=== PATIENT | male | born 1940 | race Caucasian/White ===

== ENCOUNTER → 2016-11-02 | Outpatient (CLI) | payer MEDICARE, BC ==
[~2016-11-02] MED LIST: /ESOM40CA; /MOXI40TA OR; ACTI300C; ALBU17IN2; CALAMINE; MULTIVIT OR; miralax
--- NOTE | 2016-11-02 16:32 | REP ---
MAXILLOFACIAL CT WITHOUT CONTRAST: HISTORY: Sinusitis. COMPARISON: 12/05/2010. The left frontal sinus is hypoplastic. Moderate mucosal thickening is present in the ethmoid and left frontal sinuses. Minimal mucosal thickening is present in the maxillary, sphenoid and right frontal sinuses. Mucosal thickening involves the osteomeatal units. The middle and inferior nasal turbinates are partially paradoxical. There is minimal deviation of the nasal septum to the right anteriorly and mild deviation to the left posteriorly. A spur is present arising from the left side of the nasal septum. The spur abuts the left middle nasal turbinate. The cribriform plate, medial hart of the orbits and optic canals are intact. The carotid canals form a segment of the posterolateral hart of the sphenoid sinus. The sphenoid sinus septum inserts into the left internal carotid canal wall. Minimal mucosal thickening is present in the right mastoid air cells. The left mastoid air cells are clear. IMPRESSION: Sinus mucosal thickening as described above. Signed by Venkat Beckford MD 11/02/2016 04:48 P
== END ==
LOC: M RAD 15:47
DX: J32.4 Chronic pansinusitis (principal)

== ENCOUNTER → 2017-04-10 | Outpatient (CLI) | payer MEDICARE, BC ==
[2017-04-10 14:46] LABS: ALBUMIN 3.6 GM/DL (3.2-5.2); ALBUMIN/GLOBULIN RATIO 1.13 (1.00-1.93); BILIRUBIN,DIRECT 0.3 MG/DL (0.0-0.2); CALCIUM LEVEL 9.6 MG/DL (8.8-10.2); CREATININE FOR GFR 1.5 MG/DL (0.70-1.30); GLOMERULAR FILTRATION RATE 48.4 (>42); POTASSIUM SERUM 4.8 MEQ/L (3.5-5.1); TOTAL PROTEIN 6.8 GM/DL (6.4-8.2)
== END ==
LOC: M SMT 10:15
PROVIDERS: ATTEND Physician Assistant Medical
DX: L29.9 Pruritus, unspecified (principal)

== ENCOUNTER → 2017-07-04 | Outpatient (CLI) | payer MEDICARE, BC ==
[2017-07-04 18:06] LABS: CALCIUM LEVEL 9.3 MG/DL (8.8-10.2); CREATININE FOR GFR 1.55 MG/DL (0.70-1.30); GLOMERULAR FILTRATION RATE 46.6 (>42); POTASSIUM SERUM 4.4 MEQ/L (3.5-5.1)
== END ==
LOC: M SMT 15:54
PROVIDERS: ATTEND Family Medicine
DX: N17.9 Acute kidney failure, unspecified (principal)

== ENCOUNTER → 2018-02-09 | Outpatient (CLI) | payer MEDICARE, BC ==
[2018-02-09 13:27] LABS: BASO # 0.1 10^3/uL (0.0-0.2); BASO % 1.6 % (0.0-1.0); EOS # 0.6 10^3/uL (0.0-0.50); EOS % 10.2 % (0.0-3.0); HEMATOCRIT 44.2 % (42.0-52.0); HEMOGLOBIN 15.1 g/dl (13.5-17.5); IMMATURE GRANULOCYTE % 0.2 % (0-3.0); LYMPH # 1.6 10^3/uL (1.5-4.5); LYMPH % 27.3 % (24.0-44.0); MEAN CORPUSCULAR HEMOGLOBIN 33.5 pg (27.0-33.0); MEAN CORPUSCULAR HGB CONC 34.2 g/dl (32.0-36.5); MONO # 0.6 10^3/uL (0.0-0.8); MONO % 11.1 % (0.0-5.0); NEUTROPHILS # 2.9 10^3/uL (1.8-7.7); NEUTROPHILS % 49.6 % (36.0-66.0); PLATELET COUNT, AUTOMATED 182 10^3/uL (150-450); RED BLOOD COUNT 4.51 10^6/uL (4.30-6.10); RED CELL DISTRIBUTION WIDTH 13.7 % (11.5-14.5); WHITE BLOOD COUNT 5.8 10^3/uL (4.0-10.0)
[2018-02-09 13:54] LABS: ERYTHROCYTE SEDIMENTATION RATE 3 mm/hr (0-20)
[2018-02-09 14:14] LABS: C REACTIVE PROTEIN QUANTITATIV < 0.30 MG/DL (0.00-0.30); FREE T4 0.97 NG/DL (0.76-1.46); THYROID STIMULATING HORMONE 0.548 uIU/ML (0.358-3.740)
[2018-02-09 22:45] LABS: ANION GAP 8 MEQ/L (8-16); BLOOD UREA NITROGEN 25 MG/DL (7-18); CALCIUM LEVEL 9.7 MG/DL (8.8-10.2); CARBON DIOXIDE LEVEL 27 MEQ/L (21-32); CHLORIDE LEVEL 109 MEQ/L (98-107); CREATININE FOR GFR 1.49 MG/DL (0.70-1.30); GLOMERULAR FILTRATION RATE 48.7 (>42); GLUCOSE, FASTING 82 MG/DL (70-100); POTASSIUM SERUM 4.4 MEQ/L (3.5-5.1); SODIUM LEVEL 144 MEQ/L (136-145)
== END ==
LOC: M SMT 11:17
DX: J32.0 Chronic maxillary sinusitis (principal); R09.82 Postnasal drip; R91.8 Other nonspecific abnormal finding of lung field; E03.9 Hypothyroidism, unspecified; R53.83 Other fatigue
CPT/HCPCS: 84443

== ENCOUNTER → 2018-02-10 | Outpatient (REF) | payer MEDICARE, BC | LOC: M LAB REF 10:37 | DX: J20.9 Acute bronchitis, unspecified (principal) | CPT/HCPCS: 87205 ==

== ENCOUNTER → 2018-02-15 | Outpatient (CLI) | payer MEDICARE, BC ==
[~2018-02-15] MED LIST changes: -/ESOM40CA; -/MOXI40TA OR; -ACTI300C; -ALBU17IN2; -CALAMINE; +ISOVUE-370 76% 100ML VIAL (Q9967) As Ordered; -MULTIVIT OR; -miralax
== END ==
LOC: M RAD 08:08
DX: J20.9 Acute bronchitis, unspecified (principal); J84.10 Pulmonary fibrosis, unspecified; K80.00 Calculus of gallbladder with acute cholecystitis without obstruction
CPT/HCPCS: Q9967

== ENCOUNTER → 2018-03-06 | Outpatient (CLI) | payer MEDICARE, BC ==
[2018-03-06 13:17] LABS: ANION GAP 6 MEQ/L (8-16); BLOOD UREA NITROGEN 26 MG/DL (7-18); CALCIUM LEVEL 9.5 MG/DL (8.8-10.2); CARBON DIOXIDE LEVEL 31 MEQ/L (21-32); CHLORIDE LEVEL 109 MEQ/L (98-107); GLOMERULAR FILTRATION RATE 52.3 (>42); GLUCOSE, FASTING 76 MG/DL (70-100); POTASSIUM SERUM 4.4 MEQ/L (3.5-5.1); SODIUM LEVEL 146 MEQ/L (136-145)
== END ==
LOC: M SMT 10:39
DX: Z01.818 Encounter for other preprocedural examination (principal)
CPT/HCPCS: 80048

== ENCOUNTER 2018-07-01 11:21 | Emergency (ER) | payer MEDICARE, BC ==
[2018-07-01] MEDS: ACETAMINOPH W/CODEINE #3 TAB UD PO (11:56)
== END 2018-07-01 12:59 | disposition home or self-care (01) ==
LOC: M ED 11:21
DX: M17.12 Unilateral primary osteoarthritis, left knee (principal); Z88.8 Allergy status to other drugs, medicaments and biological substances; Z88.0 Allergy status to penicillin
CPT/HCPCS: 73564

== ENCOUNTER → 2018-11-21 | Outpatient (CLI) | payer MEDICARE, BC ==
[~2018-11-21] MED LIST changes: +ACTI300C; +ALBU17IN2; +AVEL1TAB2 OR; +CALAMINE; -ISOVUE-370 76% 100ML VIAL (Q9967) As Ordered; +MULTIVIT OR; +NEXI1CAP3; +TYLETAB14 PO; +miralax
--- NOTE | 2018-11-21 13:18 | REP ---
REASON: Cough. COMPARISON: 02/09/2018. There is fibrotic change with basilar predominance status quo. No acute patchy parenchymal opacities or pleural effusions have developed. The cardiomediastinal silhouette is stable. The heart is not enlarged. There is no change in the osseous structures. IMPRESSION: Stable appearing chronic changes. Electronically Signed by Aly Bobo DO 11/21/2018 03:24 P
[2018-11-21 13:22] LABS: BASO # 0.1 10^3/uL (0.0-0.2); BASO % 1.2 % (0.0-1.0); EOS # 0.8 10^3/uL (0.0-0.50); EOS % 10.2 % (0.0-3.0); HEMATOCRIT 45.3 % (42.0-52.0); HEMOGLOBIN 15.5 g/dl (13.5-17.5); LYMPH % 26.2 % (24.0-44.0); MEAN CORPUSCULAR HEMOGLOBIN 34.1 pg (27.0-33.0); MEAN CORPUSCULAR HGB CONC 34.2 g/dl (32.0-36.5); MEAN CORPUSCULAR VOLUME 99.6 fl (80.0-96.0); MONO # 0.6 10^3/uL (0.0-0.8); MONO % 8.5 % (0.0-5.0); NEUTROPHILS % 53.5 % (36.0-66.0); PLATELET COUNT, AUTOMATED 178 10^3/uL (150-450); RED BLOOD COUNT 4.55 10^6/uL (4.30-6.10); WHITE BLOOD COUNT 7.5 10^3/uL (4.0-10.0)
[2018-11-21 14:08] LABS: ALBUMIN 3.6 GM/DL (3.2-5.2); ALT/SGPT 34 U/L (12-78); BILIRUBIN,TOTAL 1.1 MG/DL (0.2-1.0); BLOOD UREA NITROGEN 29 MG/DL (7-18); C REACTIVE PROTEIN QUANTITATIV < 0.30 MG/DL (0.00-0.30); CALCIUM LEVEL 10.3 MG/DL (8.8-10.2); CARBON DIOXIDE LEVEL 29 MEQ/L (21-32); CHLORIDE LEVEL 107 MEQ/L (98-107); CREATININE FOR GFR 1.42 MG/DL (0.70-1.30); FERRITIN 120 NG/ML (26-388); FREE T4 1.13 NG/DL (0.76-1.46); GLOMERULAR FILTRATION RATE 51.5 (>42); GLUCOSE, FASTING 94 MG/DL (70-100); IRON (FE) 154 UG/DL (65-175); PERCENT SATURATION 55.4 % (19.7-50.0); POTASSIUM SERUM 4.2 MEQ/L (3.5-5.1); RHEUMATOID FACTOR QUANT < 10.0 IU/ML (<15.0); SODIUM LEVEL 141 MEQ/L (136-145); TOTAL IRON BINDING CAPACITY 278 UG/DL (250-450); TOTAL PROTEIN 6.4 GM/DL (6.4-8.2)
[2018-11-21 14:18] LABS: ERYTHROCYTE SEDIMENTATION RATE 4 mm/hr (0-20)
[2018-11-22 17:19] LABS: PTH INTACT 16.1 PG/ML (18.5-88.0)
[2018-11-24 00:06] LABS: ANTINUCLEAR ANTIBODIES DIRECT Negative (Negative); BABESIOSIS LEVEL IGG <1:10 (Neg:<1:10); BABESIOSIS LEVEL IGM <1:10 (Neg:<1:10); CYCLIC CITRULLINATED PEPTIDE 47 units (0-19); E CHAFFEENSIS IgG TITER Negative (Neg:<1:64); E CHAFFEENSIS IgM TITER Negative (Neg:<1:20); HUMAN GRANULCYTIC EHRLIC IgG Negative (Neg:<1:64); HUMAN GRANULCYTIC EHRLIC IgM Negative (Neg:<1:20); Lyme Disease IgG Ab 18 kDa Ban Absent (.); Lyme Disease IgG Ab 23 kDa Ban Absent (.); Lyme Disease IgG Ab 28 kDa Ban Absent (.); Lyme Disease IgG Ab 30 kDa Ban Absent (.); Lyme Disease IgG Ab 39 kDa Ban Absent (.); Lyme Disease IgG Ab 41 kDa Ban Present (.); Lyme Disease IgG Ab 45 kDa Ban Present (.); Lyme Disease IgG Ab 58 kDa Ban Absent (.); Lyme Disease IgG Ab 66 kDa Ban Absent (.); Lyme Disease IgG Ab 93 kDa Ban Absent (.); Lyme Disease IgG West Blot Int Negative (.); Lyme Disease IgM Ab 23 kDa Ban Present (.); Lyme Disease IgM Ab 39 kDa Ban Absent (.); Lyme Disease IgM Ab 41 kDa Ban Absent (.); Lyme Disease IgM Ab Quantitati <0.80 index (0.00-0.79); Lyme Disease IgM West Blot Int Negative (.); UNITSIGA FOR GLIADIN IGA 8 units (0-19); UNITSIGG FOR GLIADIN IGG 2 units (0-19)
== END ==
LOC: M SMT 12:01
PROVIDERS: ATTEND Family Medicine
DX: R53.83 Other fatigue (principal); R05 Cough; E83.52 Hypercalcemia

== ENCOUNTER → 2018-11-26 | Outpatient (CLI) | payer MEDICARE, BC | LOC: M WUC 17:30 | PROVIDERS: ATTEND Family Medicine | DX: R53.83 Other fatigue (principal); E83.52 Hypercalcemia ==

== ENCOUNTER → 2018-12-17 | Outpatient (CLI) | payer MEDICARE, BC ==
[2018-12-20 14:51] LABS: Lyme Disease IgG Ab 18 kDa Ban Absent (.); Lyme Disease IgG Ab 23 kDa Ban Absent (.); Lyme Disease IgG Ab 28 kDa Ban Absent (.); Lyme Disease IgG Ab 30 kDa Ban Present (.); Lyme Disease IgG Ab 39 kDa Ban Absent (.); Lyme Disease IgG Ab 41 kDa Ban Present (.); Lyme Disease IgG Ab 45 kDa Ban Present (.); Lyme Disease IgG Ab 58 kDa Ban Absent (.); Lyme Disease IgG Ab 66 kDa Ban Absent (.); Lyme Disease IgG Ab 93 kDa Ban Absent (.); Lyme Disease IgG West Blot Int Negative (.); Lyme Disease IgG/IgM Antibodie 1.69 ISR (0.00-0.90); Lyme Disease IgM Ab 23 kDa Ban Absent (.); Lyme Disease IgM Ab 39 kDa Ban Absent (.); Lyme Disease IgM Ab 41 kDa Ban Absent (.); Lyme Disease IgM Ab Quantitati <0.80 index (0.00-0.79); Lyme Disease IgM West Blot Int Negative (.)
== END ==
LOC: M SMT 14:03
PROVIDERS: ATTEND Family Medicine
DX: A69.20 Lyme disease, unspecified (principal)

== ENCOUNTER → 2019-05-08 | Outpatient (CLI) | payer MEDICARE, BC ==
[2019-05-08 20:35] LABS: BASO # 0.1 10^3/uL (0.0-0.2); EOS # 0.2 10^3/uL (0.0-0.5); EOS % 3.4 % (0.0-3.0); HEMATOCRIT 41.1 % (42.0-52.0); HEMOGLOBIN 13.9 g/dl (13.5-17.5); LYMPH # 1.9 10^3/uL (1.5-5.0); LYMPH % 27.2 % (24.0-44.0); MEAN CORPUSCULAR HEMOGLOBIN 34.3 pg (27.0-33.0); MEAN CORPUSCULAR HGB CONC 33.8 g/dl (32.0-36.5); MEAN CORPUSCULAR VOLUME 101.5 fl (80.0-96.0); MONO # 0.8 10^3/uL (0.0-0.8); MONO % 11.5 % (0.0-5.0); NEUTROPHILS # 3.9 10^3/uL (1.5-8.5); NEUTROPHILS % 56.6 % (36.0-66.0); PLATELET COUNT, AUTOMATED 157 10^3/uL (150-450); RED BLOOD COUNT 4.05 10^6/uL (4.30-6.10)
[2019-05-08 20:41] LABS: ALBUMIN 3.5 GM/DL (3.2-5.2); BILIRUBIN,TOTAL 0.9 MG/DL (0.2-1.0); CALCIUM LEVEL 9.7 MG/DL (8.8-10.2); CREATININE FOR GFR 1.49 MG/DL (0.70-1.30); GLOMERULAR FILTRATION RATE 48.6 (>42); MAGNESIUM LEVEL 1.9 MG/DL (1.8-2.4); POTASSIUM SERUM 3.8 MEQ/L (3.5-5.1); TOTAL PROTEIN 6.3 GM/DL (6.4-8.2)
== END ==
LOC: M WUC 15:52
PROVIDERS: ATTEND Family Medicine
DX: R25.2 Cramp and spasm (principal)

== ENCOUNTER → 2020-03-20 | Outpatient (CLI) | payer MEDICARE, BC, SELFPAY ==
[~2020-03-20] MED LIST changes: +ANAS1TAB2 PO; +BACITAB PO; +CIAL5TAB PO; +CURC1POW2 MC; +CURC1POW2 PO; +DEXI60CA2 PO; +DHEA50TA2 PO; +FOLI1TAB11 PO; +IPRA3SP INH; +K2 P1TAB PO; +LATA0.0015 OP; +LYCO10CA3 PO; +MAGN1CAP PO; +MIRA3350 PO; +MONT10TA4 PO; +OMEG10002 PO; +RA M500C PO; +TEST200I14 IM; +THIA100TA PO; +THYR60TA PO; +VENTAER INH; +VITMTA PO; +XALA0.007 OU; +[UNRECOGNIZED DRUG - CODE] PO; +[UNRECOGNIZED DRUG - CODE] PO; +[UNRECOGNIZED DRUG - OTHER] PO; +[UNRECOGNIZED DRUG - REMARK] PO
== END ==
LOC: M LABSMTC 10:36
PROVIDERS: ATTEND Pediatrics
DX: Z11.59 Encounter for screening for other viral diseases (principal); Z20.828 Contact with and (suspected) exposure to other viral communicable diseases

== ENCOUNTER 2020-03-24 09:44 | Inpatient (IN) | payer MEDICARE, BC ==
[~2020-03-24] VITALS: Ht 177.8 cm; Wt 81.7 kg
[~2020-03-24 09:44] MED LIST changes: -ANAS1TAB2 PO; -BACITAB PO; -CIAL5TAB PO; -CURC1POW2 MC; -CURC1POW2 PO; -DEXI60CA2 PO; -DHEA50TA2 PO; -FOLI1TAB11 PO; -IPRA3SP INH; -K2 P1TAB PO; -LATA0.0015 OP; -LYCO10CA3 PO; -MAGN1CAP PO; -MIRA3350 PO; -MONT10TA4 PO; -OMEG10002 PO; -RA M500C PO; -TEST200I14 IM; -THIA100TA PO; -THYR60TA PO; -VENTAER INH; -VITMTA PO; -XALA0.007 OU; -[UNRECOGNIZED DRUG - CODE] PO; -[UNRECOGNIZED DRUG - CODE] PO; -[UNRECOGNIZED DRUG - OTHER] PO; -[UNRECOGNIZED DRUG - REMARK] PO
[2020-03-24 10:47] LABS: BASO # 0.1 10^3/uL (0.0-0.2); BASO % 1.2 % (0.0-1.0); EOS # 0.2 10^3/uL (0.0-0.5); EOS % 4.3 % (0.0-3.0); HEMATOCRIT 44.6 % (42.0-52.0); HEMOGLOBIN 15.4 g/dl (13.5-17.5); LYMPH % 18.2 % (24.0-44.0); MEAN CORPUSCULAR HEMOGLOBIN 33.4 pg (27.0-33.0); MEAN CORPUSCULAR HGB CONC 34.5 g/dl (32.0-36.5); MEAN CORPUSCULAR VOLUME 96.7 fl (80.0-96.0); MONO # 0.3 10^3/uL (0.0-0.8); MONO % 6.1 % (0.0-5.0); NEUTROPHILS # 3.9 10^3/uL (1.5-8.5); NEUTROPHILS % 68.6 % (36.0-66.0); RED BLOOD COUNT 4.61 10^6/uL (4.30-6.10); WHITE BLOOD COUNT 5.6 10^3/uL (4.0-10.0)
[2020-03-24] MEDS ORDERED: LATA0.0015 OP (10:47)
[2020-03-24] MEDS ORDERED: THYR60TA PO (10:47)
[2020-03-24] MEDS ORDERED: [UNRECOGNIZED DRUG - REMARK] PO (10:47)
[2020-03-24] MEDS ORDERED: IPRA3SP INH (10:47)
[2020-03-24] MEDS ORDERED: MONT10TA4 PO (10:47)
[2020-03-24] MEDS ORDERED: DEXI60CA2 PO (10:47)
--- NOTE | 2020-03-24 10:54 | REPVR ---
PROCEDURE INFORMATION: Exam: CT Head Without Contrast Exam date and time: 03/24/2020 10:31 AM Age: 79 years old Clinical indication: Walking, difficulty; Additional info: Staggering when walking TECHNIQUE: Imaging protocol: Computed tomography of the head without contrast. Radiation optimization: All CT scans at this facility use at least one of these dose optimization techniques: automated exposure control; mA and/or kV adjustment per patient size (includes targeted exams where dose is matched to clinical indication); or iterative reconstruction. COMPARISON: CT Head without contrast 03/03/2016 9:44 AM FINDINGS: Brain: There is no acute intracranial hemorrhage or mass effect. Mild diffuse volume loss is within the range of normal for patient age. There are small vessel ischemic changes within the periventricular and subcortical white matter, but the normal childress/white matter delineation is maintained. There is asymmetric prominence of the left cavernous sinus. Ventricles: Normal. No ventriculomegaly. Bones/joints: Unremarkable. No acute fracture. Sinuses: There are secretions within the left maxillary sinus. Mastoid air cells: There is fluid within mastoid air cells bilaterally. Soft tissues: Unremarkable. IMPRESSION: No acute hemorrhage or edema. Apparent asymmetric prominence of the left cavernous sinus. Contrast-enhanced MRI may be of benefit for further evaluation. Electronically signed by: Chel Garcia On 03/24/2020 10:54:06 AM
[2020-03-24] MEDS ORDERED: NS 1,000 ML IV ONE ×2 (11:00→15:00)
[2020-03-24 11:03] LABS: ALBUMIN 2.3 GM/DL (3.2-5.2); ALT/SGPT 103 U/L (12-78); BILIRUBIN,TOTAL 8.1 MG/DL (0.2-1.0); BLOOD UREA NITROGEN 43 MG/DL (7-18); CARBON DIOXIDE LEVEL 25 MEQ/L (21-32); CHLORIDE LEVEL 108 MEQ/L (98-107); CK-MB VALUE MASS < 1.0 NG/ML (<3.6); CPK CREATINE PHOSPHOKINASE 23 U/L (39-308); CREATININE FOR GFR 2.35 MG/DL (0.70-1.30); GLOMERULAR FILTRATION RATE 28.6 (>42); GLUCOSE, FASTING 99 MG/DL (70-100); LIPASE 113 U/L (73-393); MB/CK RELATIVE INDEX 4.35 (< OR =4); POTASSIUM SERUM 4.3 MEQ/L (3.5-5.1); SODIUM LEVEL 140 MEQ/L (136-145); TOTAL PROTEIN 5.4 GM/DL (6.4-8.2); TROPONIN I < 0.02 NG/ML (< 0.10)
[2020-03-24 11:27] LABS: PLATELET COUNT, AUTOMATED 44 10^3/uL (150-450)
--- NOTE | 2020-03-24 11:42 | REPVR ---
PROCEDURE INFORMATION: Exam: XR Complete Acute Abdomen Series Exam date and time: 03/24/2020 11:11 AM Age: 79 years old Clinical indication: Abdominal pain; Generalized; Additional info: Weakness/constipation TECHNIQUE: Imaging protocol: XR complete acute abdomen series, including 2 or more views of the abdomen and a single view chest. COMPARISON: CR CHEST 2 VIEWS 11/21/2018 12:17 PM FINDINGS: Lungs: Hyperinflation of the lungs and flattening of the hemidiaphragms are compatible with COPD. Pleural space: Normal. No pneumothorax. Heart/Mediastinum: Normal. No cardiomegaly. Gastrointestinal tract: Bowel gas pattern is nonspecific, without dilatation. Intraperitoneal space: Normal. No free air. Bones/joints: Normal. No acute fracture. Soft tissues: Normal. IMPRESSION: No acute abnormality. Electronically signed by: Chel Garcia On 03/24/2020 11:42:35 AM
[2020-03-24 12:38] LABS: BILIRUBIN, URINE MANUAL OBSCURED (NEGATIVE); GLUCOSE, URINE (UA) MANUAL NEGATIVE (NEGATIVE); KETONE, URINE MANUAL OBSCURED mg/dL (NEGATIVE); UROBILINOGEN, URINE MANUAL OBSCURED mg/dl (NORMAL)
[2020-03-24 12:47] LABS: SQUAMOUS EPITHELIAL CELL URINE MOD AMOUNT /hpf (SMALL AMT)
[2020-03-24 12:48] LABS: BACTERIA, URINE NONE SEEN; HYALINE CAST, URINE 0-1 /lpf (0-1)
[2020-03-24] MEDS ORDERED: ANAS1TAB2 PO (15:49)
[2020-03-24] MEDS ORDERED: K2 P1TAB PO (15:49)
[2020-03-24] MEDS ORDERED: CURC1POW2 PO (15:49)
[2020-03-24] MEDS ORDERED: LYCO10CA3 PO (15:49)
[2020-03-24] MEDS ORDERED: BACITAB PO (15:49)
[2020-03-24] MEDS ORDERED: VITMTA PO (15:49)
[2020-03-24] MEDS ORDERED: [UNRECOGNIZED DRUG - CODE] PO (15:49)
[2020-03-24] MEDS ORDERED: RA M500C PO (15:49)
[2020-03-24] MEDS ORDERED: OMEG10002 PO (15:49)
[2020-03-24] MEDS ORDERED: TEST200I14 IM (15:49)
[2020-03-24] MEDS ORDERED: XALA0.007 OU (15:49)
[2020-03-24] MEDS ORDERED: MIRA3350 PO (15:49)
[2020-03-24] MEDS ORDERED: CIAL5TAB PO (15:49)
[2020-03-24] MEDS ORDERED: MAGN1CAP PO (15:49)
[2020-03-24] MEDS ORDERED: VENTAER INH (15:49)
[2020-03-24] MEDS ORDERED: CURC1POW2 MC (15:49)
[2020-03-24] MEDS ORDERED: DHEA50TA2 PO (15:49)
[2020-03-24] MEDS ORDERED: [UNRECOGNIZED DRUG - OTHER] PO (15:51)
[2020-03-24] MEDS ORDERED: [UNRECOGNIZED DRUG - CODE] PO (15:51)
[2020-03-24] MEDS ORDERED: HEPARIN SOD (PORCINE) 5000UNITS/ML 1ML VIAL/SYRINGE SC SCH (16:00)
[2020-03-24] MEDS ORDERED: ALBUTEROL SULFATE 2.5 MG/0.5 ML INH NEB SOLN NEB PRN (16:00)
[2020-03-24 16:35] LABS: BILIRUBIN,DIRECT 6.3 MG/DL (0.0-0.2)
[2020-03-24] MEDS ORDERED: ISOVUE-370 76% 100ML VIAL As Ordered ONE (16:51)
[2020-03-24] MEDS ORDERED: GASTROGRAFIN SOLUTION 30ML PO SCH (17:00)
[2020-03-24 17:01] LABS: INR 1.25
[2020-03-24 17:02] LABS: PARTIAL THROMBOPLASTIN TIME 38.8 SECONDS (25.0-38.4)
[2020-03-24 17:13] LABS: HEPATITIS B SURFACE ANTIGEN NEGATIVE (NEGATIVE)
[2020-03-24] MEDS: GASTROGRAFIN SOLUTION 30ML PO SCH ×2 (17:24→17:43)
[2020-03-24 17:41] LABS: HEPATITIS B CORE ANTIBODY IGM NEGATIVE (NEGATIVE); HEPATITIS C VIRUS ABY INDEX 0.1 INDEX (<0.8)
[2020-03-24 17:45] LABS: HEPATITIS A ANTIBODY IGM NEGATIVE (NEGATIVE)
[2020-03-24 18:06] VITALS: BP 103/62
[2020-03-24] MEDS: PANTOPRAZOLE 40MG TAB (PROTONIX) PO SCH (18:20)
--- NOTE | 2020-03-24 20:22 | REPVR ---
PROCEDURE INFORMATION: Exam: CT Abdomen And Pelvis Without Contrast Exam date and time: 03/24/2020 7:27 PM Age: 79 years old Clinical indication: Constipation, abnormal liver function tests TECHNIQUE: Imaging protocol: Computed tomography of the abdomen and pelvis without contrast. Radiation optimization: All CT scans at this facility use at least one of these dose optimization techniques: automated exposure control; mA and/or kV adjustment per patient size (includes targeted exams where dose is matched to clinical indication); or iterative reconstruction. Other contrast: Oral, gastrographin ; COMPARISON: CR Abdomen,Flat Upright,PA CHEST 03/24/2020 10:55 AM FINDINGS: Lungs: There is a 5 mm solid pulmonary nodule in the right middle lobe and a 4 mm solid pulmonary nodule in the left lower lobe (image 6 of the axial series 204). There is bibasilar atelectasis. The lungs were not fully imaged. Pleural space: There is a trace right pleural effusion. The pleural spaces were not fully imaged. Heart: No cardiomegaly or pericardial effusion. Mitral annular and aortic valve calcifications are present. Liver: There is a slightly nodular contour of the liver, which may indicate cirrhosis. There is no CT evidence for fatty liver infiltration. No liver mass is identified. No hepatomegaly. The liver measures 12.9 cm in craniocaudal dimension at the level of the right midclavicular line. Gallbladder and bile ducts: There is a 10 mm calcified gallstone in the dependent portion of the body of the distended gallbladder. No gallbladder wall thickening, pericholecystic fluid, or inflammatory fat stranding is noted around the gallbladder. No dilation of the bile ducts is noted. No calcified stones are seen in the common bile duct. Pancreas: Unremarkable. No dilation of the main pancreatic duct is noted. There is no inflammatory fat stranding around the pancreas to suggest acute pancreatitis. Spleen: No splenic lesion is noted. The spleen is enlarged and measures 13.8 cm. Adrenals: Normal. No adrenal mass is noted. Kidneys and ureters: There is bilateral nephrolithiasis. No stones are noted in the ureters. There is no hydronephrosis or hydroureter. There is a 2.7 cm benign-appearing simple exophytic cyst arising from the lower pole of the left kidney for which further imaging follow-up is not recommended. Stomach and bowel: The stomach and small bowel are unremarkable. There is colonic diverticulosis without evidence for diverticulitis. There is no evidence for a bowel obstruction, colitis, pneumatosis intestinalis, intussusception, volvulus, or perforated viscus. Appendix: Normal. There is no evidence for appendicitis. Intraperitoneal space: No free air. No ascites. No asbcess. Retroperitoneal space: No fluid collection. No mass. Vasculature: There is no abdominal aortic aneurysm or intramural hematoma. Mild atherosclerotic calcifications are present. Lymph nodes: No enlarged lymph nodes. Bladder: There is a Sheridan catheter in appropriate position in the urinary bladder and gas in the bladder. The urinary bladder is decompressed, limiting its optimal evaluation. No stones are seen in the bladder. Reproductive: The prostate gland is enlarged and measures 4.4 cm x 6.1 cm x 4.9 cm and the volume of the prostate gland is increased and measures 68.8 mL. There is a calcification in the prostate gland. The seminal vesicles are unremarkable. Bones/joints: There is no fracture or dislocation. No suspicious osteolytic or osteoblastic lesion. Incidental note is made of intraosseous hemangiomas in the T10 and L5 vertebral bodies. There is mild osteoarthritis of both hip joints. There are bony protruberances in the lateral aspects of the femoral head neck junctions, which increase the anatomic risk for a CAM type femoroacetabular impingement syndrome in both hips. There are degenerative changes involving the lumbar spine. Soft tissues: There are postoperative changes from a bilateral inguinal hernia repair surgery. No recurrent hernia or soft tissue fluid collection is noted. IMPRESSION: 1. Nodular contour of the liver, which may indicate cirrhosis. 2. Splenomegaly. 3. Cholelithiasis without CT evidence for cholecystitis. 4. Nonobstructive bilateral nephrolithiasis. 5. Colonic diverticulosis without evidence for diverticulitis. 6. Enlarged prostate. 7. 5 mm solid pulmonary nodule in the right middle lobe and a 4 mm solid pulmonary nodule in the left lower lobe. For patients at low risk (minimal or absent history of smoking and of other known risk factors), no routine follow-up is indicated. For patients at high risk (history of smoking or of other known risk factors), consider optional CT at 12 months. (Hetal et al., Fleischner Society, 2017) 8. Trace right pleural effusion. COMMENTS: Consistent with the [place] [employer]'s Incidental Findings Committee white paper (J Am Servando Radiol 2018): Any incidental renal lesion less than 1 cm or classified as too small to characterize, or any incidental cystic renal lesion characterized as simple-appearing, is likely benign. No follow-up imaging is recommended for these lesions per consensus recommendations based on imaging criteria. Electronically signed by: Lele Kwon On 03/24/2020 20:22:04 PM
--- NOTE | 2020-03-24 20:32 | HPEPDOC ---
General Date of Admission Mar 24, 2020 at 15:54 Date of Service: Mar 24, 2020 Chief Complaint The patient is a 79-year-old male admitted with a reason for visit of Yo,Gait Instability. Source: Patient, Family History of Present Illness 79 year old male presented to the ED with 10 days history of fatigue, malaise, poor appetite and 1 week of constipation. He took some fleet enema yesterday for this and had a soft bowel movement. He also complained of disbalance and stagger ing gait for which he got a cane this morning for the first time ever. He also had 5 days of generalized abdominal pain about 4/10 dull aching which is now better after having a bowel movement yesterday. He denied any diarrhea or vomiting. In the ED he was found to have to have Jaudice with cholestatic pattern, Thrombocytopenia and Yo on CKD Home Medications Scheduled Anastrozole (Anastrozole) 1 Mg Tablet, 0.5 MG PO BID, (Reported) TAKES WITH TESTOSTERONE INJECTIONS (MON/) Curcumin (Curcumin) 10 Gm Powder, 1 CAP PO BID, (Reported) Dexlansoprazole (Dexilant) 60 Mg Cap.bp, 60 MG PO DAILY, (Reported) L.acidoph/L.bulg/B.bif/S.therm (Bacid Caplet) 1 Each Tablet, 1 TAB PO DAILY, (Reported) Latanoprost (Xalatan) 0.005% 2.5ML Drops, 1 DROP OU QHS, (Reported) Lycopene (Lycopene) 10 Mg Capsule, 10 MG PO DAILY, (Reported) Magnesium Oxide (Magnesium) 500 Mg Capsule, 500 MG PO QAM, (Reported) Magnesium Oxide (Magnesium) 500 Mg Capsule, 1,000 MG PO QHS, (Reported) Montelukast Sodium (Montelukast Sodium) 10 Mg Tablet, 10 MG PO QHS, (Reported) Multivitamins (Thera M Plus Tablet) 1 Each Tablet, 1 TAB PO DAILY, (Reported) Chauvin-3/Dha/Epa/Fish Oil (Fish Oil 1,000 mg Softgel) 1 Each Capsule, 4 CAP PO BID, (Reported) Polyethylene Glycol 3350 (Miralax) 119 Gm Powder, 1 DOSE PO DAILY, (Reported) TAKES ONE TABLESPOON Prasterone (Dhea)/Calcium Carb (Dhea 50 mg Tablet) 1 Each Tablet, 50 MG PO DAILY, (Reported) Tadalafil (Cialis) 5 Mg Tablet, 5 MG PO QHS, (Reported) Testosterone Cypionate (Testosterone Cypionate) 200 Mg/1 Ml Vial, 1 DOSE IM 2XW, (Reported) UNKNOWN DOSE (SUN/THURS) Thyroid ([place] Thyroid) 60 Mg Tablet, 60 MG PO QAM, (Reported) Vitamin D3/Vitamin K2 (Mk4) (K2 Plus D3 Tablet) 1 Each Tablet, 1 TAB PO QHS, (Reported) [Methylation Formula] , 2 TAB PO DAILY, (Reported) [Ta-65] , 1 CAP PO QHS, (Reported) Scheduled PRN Albuterol Sulfate (Ventolin Hfa) 18 Gm Hfa.aer.ad, 2 PUFF INH Q4H PRN for SOB/WH EEZING, (Reported) Calcium Carbonate (Antacid) 200 Mg Tab.chew, 500 MG PO for INDIGESTION, (Reported) Ipratropium Clayton (Ipratropium [place]) 30 Ml [place], 2 SPRAYS INH BID PRN for CONGESTION, (Reported) Allergies Coded Allergies: amoxicillin (Verified Adverse Reaction, Unknown, jaundice, SCLERA ORANGE, URINE ORANGE, 03/24/20) clavulanic acid (Verified Adverse Reaction, Unknown, jaundice, SCLERA ORANGE, URINE ORANGE, 03/24/20) Past Medical History Medical History CKD stage 3 Asthma ACID REFLUX ERECTILE DYSFUNCTION Hypogonadism BLADDER STONES/ Atonic bladder BPH s/p TURP LYME DISEASE SLEEP APNEA H/o Jaundice due to medications. Glaucoma Hypothyroid Surgical History TURP hernia repair Family History FATHER: RHEUMATOID ARTHRITIS MOTHER: , Breast cancer Social History * Smoker: Denies Alcohol: occationally Drugs: denies A-FIB/CHADSVASC A-FIB History Current/History of A-Fib/PAF?: No Review of Systems Constitutional: Reports: Malaise, Weakness, Fatigue; Denies: Chills, Fever, Weight Loss, Lethargy, Other Eyes: Denies: Pain, Vision change ENT: Denies: Head Aches, Ear Pain, Dysphagia Skin: Denies: Rash, Lesions, Breakdown Pulmonary: Denies: Dyspnea, Cough Cardiovascular: Reports: Edema (more i right foot); Denies: Chest Pain, Palpitations, Orthopnea, Paroxysmal Noc. Dyspnea, Lt Headedness Gastrointestinal: Reports: Abdominal Pain, Constipation; Denies: Nausea, Vomiting, Diarrhea Genitourinary: Reports: Frequency, Other Symptoms (dark color); Denies: Dysuria, Incontinence, Retention Neurological: Reports: Weakness Psych: Reports: Mood Normal; Denies: Depression, Memory Issues Other systems all 11 point review of systems are nagative except those mentioned in HPI Physical Examination General Exam: Positive: Alert, Cooperative, No Acute Distress Eye Exam: Positive: PERRLA, Conjunctiva & lids normal, EOMI, Sclera icteric ENT Exam: Positive: Atraumatic, Mucous membr. moist/pink, Pharynx Normal Neck Exam: Positive: Supple; Negative: JVD, thyromegaly Chest Exam: Positive: Clear to auscultation, Normal air movement Heart Exam: Positive: Rate Normal, Regular Rhythm, Normal S1, Normal S2; Negative: Murmurs, Rubs Telemetry: Positive: No significant arrhythmia Abdomen Exam: Positive: Normal bowel sounds, Soft; Negative: Tenderness, Hepatospenomegaly Extremity Exam: Positive: Edema (right foot), Normal pulses; Negative: Clubbing, Cyanosis Neuro Exam: Positive: Normal Speech, Normal Tone Psych Exam: Positive: Memory Intact, Oriented x 3 Vital Signs Vital Signs Date Time Temp Pulse Resp B/P (MAP) Pulse Ox O2 Delivery O2 Flow Rate FiO2 03/24/20 18:06 98.2 74 16 103/62 (76) 97 Room Air Laboratory Data Labs 24H Laboratory Tests 2 03/24/20 10:16: Immature Granulocyte % (Auto) 1.6, Neutrophils (%) (Auto) 68.6H, Lymphocytes (%) (Auto) 18.2L, Monocytes (%) (Auto) 6.1H, Eosinophils (%) (Auto) 4.3H, Basophils (%) (Auto) 1.2H, Neutrophils # (Auto) 3.9, Lymphocytes # (Auto) 1.0L, Monocytes # (Auto) 0.3, Eosinophils # (Auto) 0.2, Basophils # (Auto) 0.1, Nucleated Red Blood Cells % (auto) 0.0, Immature Platelet Fraction 6.7, Anion Gap 7L, Glomerular Filtration Rate 28.6L, Calcium Level 10.0, Total Bilirubin 8.1H, Direct Bilirubin 6.3H, Aspartate Amino Transf (AST/SGOT) 93H, Alanine Aminotransferase (ALT/SGPT) 103H, Alkaline Phosphatase 147H, Total Creatine Kinase 23L, Creatine Kinase MB < 1.0, Creatine Kinase MB Relative Index 4.35H, Troponin I < 0.02, Total Protein 5.4L, Albumin 2.3L, Albumin/Globulin Ratio 0.7, Lipase 113, Thyroid Stimulating Hormone (TSH) 1.950, Hepatitis A IgM Antibody NEGATIVE, Hepatitis B Surface Antigen NEGATIVE, Hepatitis B Core IgM Antibody NEGATIVE, Hepatitis C Antibody Index 0.1 03/24/20 11:32: Urine Color (SAMSON) ORANGEH, Urine Appearance (SAMSON) CLEAR, Urine pH (SAMSON) 5.0, Urine Specific [place] (SAMSON) 1.025, Urine Protein TRACEH, Bedside Urine Glucose (UA) NEGATIVE, Bedside Urine Ketones (LAB) OBSCUREDH, Bedside Urine Blood POSITIVEH, Bedside Urine Nitrite (LAB) OBSCUREDH, Bedside Urine Bilirubin (LAB) OBSCUREDH, Bedside Urine Urobilinogen (LAB) OBSCUREDH, Bedside Urine Leukocyte Esterase (L NEGATIVE, Urine Sediment Examination PERFORMED, Urine RBC 1-3, Urine WBC NONE SEEN, Urine Squamous Epithelial Cells MOD AMOUNTH, Urine Bacteria NONE SEEN, Urine Hyaline Casts 0-1 03/24/20 16:30: Prothrombin Time 16.0H, Prothromb Time International Ratio 1.25, Activated Partial Thromboplast Time 38.8H CBC/BMP Laboratory Tests 03/24/20 10:16 Microbiology Microbiology 03/24/20 Urine Culture, Received Pending Assessment/Plan 79 year old male presented to the ED with 10 days history of fatigue, malaise, poor appetite and 1 week of constipation. He took some fleet enema yesterday for this and had a soft bowel movement. He also complained of disbalance and staggering gait for which he got a cane this morning for the first time ever. He also had 5 days of generalized abdominal pain about 4/10 dull aching which is now better after having a bowel movement yesterday. He denied any diarrhea or vomiting. In the ED he was found to have to have Jaudice with cholestatic pattern, Thrombocytopenia and Yo on CKD Cholestatic Jaundice hepatitis panel is negative Has h/o drug induced jaundice as reported by akiko about 5 years ago. will get CT abd and pelvis with po contrast only consult Dr Danii LUTZ Thrombocytopenia probably due to liver issues will continue ot monitor No heparin. Asthma continue albuterol prn YO on CKD 3 IVF BALJEET May use own CPAP Hypogonadism/ ED on testosterone, anastrezole and DHEA held now. Tadalis for ED held now. Hypothyroid continue home meds Glaucoma continue eye drops. Plan / VTE VTE Prophylaxis Ordered?: Yes CHEMA CHRISTIANSON MD Mar 24, 2020 19:30
[2020-03-24] MEDS: LATANOPROST 0.005% OPHTH SOLN 2.5 ML OU SCH (20:49)
[2020-03-24] MEDS: BISACODYL 10 MG SUPP PR SCH (20:49)
[2020-03-24] MEDS: D5W/0.9% SODIUM CHLORIDE 1,000 ML IV SCH (20:50)
[2020-03-24] MEDS: MONTELUKAST 10 MG TAB PO SCH (20:50)
[2020-03-24] MEDS ORDERED: MIRALAX *UNIT DOSE* 17GM PACKET PO SCH (21:00)
[2020-03-24 22:00] VITALS: BP 99/65
[2020-03-25] MEDS: THYROID 30 MG TAB PO SCH (05:49)
[2020-03-25 06:00] VITALS: BP 96/60
[2020-03-25 07:01] LABS: HEMATOCRIT 40.5 % (42.0-52.0); HEMOGLOBIN 14.2 g/dl (13.5-17.5); MEAN CORPUSCULAR HEMOGLOBIN 33.6 pg (27.0-33.0); MEAN CORPUSCULAR HGB CONC 35.1 g/dl (32.0-36.5); MEAN CORPUSCULAR VOLUME 95.7 fl (80.0-96.0); RED BLOOD COUNT 4.23 10^6/uL (4.30-6.10)
[2020-03-25 07:04] LABS: PLATELET COUNT, AUTOMATED 46 10^3/uL (150-450)
[2020-03-25 07:36] LABS: ALBUMIN 1.9 GM/DL (3.2-5.2); BILIRUBIN,TOTAL 6.3 MG/DL (0.2-1.0); CALCIUM LEVEL 9.1 MG/DL (8.8-10.2); CREATININE FOR GFR 1.89 MG/DL (0.70-1.30); GLOMERULAR FILTRATION RATE 36.8 (>42); POTASSIUM SERUM 4.1 MEQ/L (3.5-5.1); TOTAL PROTEIN 4.2 GM/DL (6.4-8.2)
[2020-03-25] MEDS: D5W/0.9% SODIUM CHLORIDE 1,000 ML IV SCH (09:43)
[2020-03-25] MEDS: PANTOPRAZOLE 40MG TAB (PROTONIX) PO SCH (09:43)
[2020-03-25] MEDS: BISACODYL 10 MG SUPP PR SCH ×2 (09:43→20:32)
[2020-03-25] MEDS: LATANOPROST 0.005% OPHTH SOLN 2.5 ML OU SCH (20:31)
[2020-03-25] MEDS: MONTELUKAST 10 MG TAB PO SCH (20:31)
[2020-03-25 22:00] VITALS: BP 95/64
[2020-03-25] MEDS ORDERED: FOLIC ACID 1 MG TAB PO ONE (22:15)
[2020-03-25] MEDS ORDERED: THIAMINE 100 MG TAB PO ONE (22:15)
--- NOTE | 2020-03-25 23:05 | CR.PDOC ---
General Date of Consultation: Mar 25, 2020 Referring Provider: CHEMA CEJA MD Attending Physician: TAE KLINE MD Consultation Primary physician/ hospitalist: Dr. Ceja Reason for consult: Abnormal liver panel HPI: 79 year old male patient with BA, CKD stage III, Erectile dysfunction, BPH s/p TURP, hypothyroidism, on multiple medications including testosterone supplements, anastrozole, OTC nutrition supplements, and recently started on weight loss medications ( high-low, medication labels not available), and also took high dose Tylenol ( 10 tablets of 500mg tylenol over 3 days around 1 week ago), chronic social alcohol use, presented to ED with around 1 week symptoms of fatigue, malaise, poor appetite and 1 week of constipation. He also reported initially some abdominal discomfort related to constipation but after taking some fleet enema, he started moving bowels and has complete relief of pain. He denied any further abdominal pain when examined by me. He denies any other act leeroy symptoms except for some malaise and generalized weakness and dizziness. He denies any loss of consciousness, or altered mental status. Patient had CT abdomen done in ER- which showed possible liver cirrhosis with nodular liver. 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 Pertinent negative GI symptoms: Patient denies fever, sick contacts, recent travel, diarrhea, loss of appetite, early satiety or unintentional weight loss. No history of hematemesis, melena or hematochezia. Review of Systems: GI: as stated above CVS: No chest pain, No palpitations, No leg swelling. RS: No Shortness of breath, No Wheezing, no cough MANAGEMENT SERVICES TECHNICIAN: No dizziness, No motor weakness, No sensory problems Hematology: No bruising, No gum bleeding, Musculoskeletal: No joint pain, ambulating well. Skin: No rash : No hematuria, No burning sensation of the urine ENT: No ear discharge/ pain, No dysphagia. Eyes: No photophobia. Jaundice Home medications: reviewed. Antithrombotic agents - none Medical h/o: As above. Surgical h/o: None on abdomen. Social h/o: Alcohol social but on average week drinks 2-4 beers, smoking Denies , IVDA/ drugs Denies . Family h/o of GI cancers - None Prior Endoscopies: Had EGD and Colonoscopy few years ago outside [facility]. Normal as per patient. Prior GI evaluations: in 2008 in [facility] Exam: Vitals: reviewed General: Alert and oriented x 3, not in distress HEENT: NO pallor, Mild icterus. Normal oropharynx, NO cervical lymph nodes. Chest: symmetric with bilateral clear air entry, CVS: S1, S2 heard, normal, no murmurs . Abdomen: non-distended, no surgical scars, soft, non-tender, no palpable masses, normal bowel sounds heard. Rectal exam: Patient refused / Deferred at this time . Extremities: no pedal edema, pulses palpable. MANAGEMENT SERVICES TECHNICIAN: no focal motor or sensory deficits. Moves all extremities Skin: no rash. Labs: reviewed. Acute viral hepatitis negative.. Imaging: reviewed. Impression: -- Acute onset malaise, clinical jaundice, fatigue and generalized weakness, in patient with history of multiple OTC medications use, recent use of Tylenol and chronic use of anabolic steroid use DDxDrug induced liver injury vs liver cirrhosis from chronic disease. -- Acute thrombocytopenia likely from above. -- YO on CKDlikely from dehydration and multiple medications. Recommendations: - Patient educated about the test results, possible differential diagnoses and All questions answered. - Diet as tolerated. - Will stop all the home medications and all hepatotoxic supplements. - Close monitoring of the mental status, liver panel, PT/ INR, renal function. - Serum and urine toxicology assessment. - Will obtain peripheral smear for pathology review, Haptoglobin levels, and LDH, Autoimmune hepatitis panel, - Discussed with patient about the available treatment options including empiric therapy with N-Acetyl cysteine, its indications, risks, benefits and alternatives. Patient want to take the medication. - Will obtain repeat labs of liver panel and start on NAC 21 hour protocol for DILI. - Will also start on thiamine and folic acid for now. - Continue with low dose PPI for now. - Patient is educated about the guarded prognosis. If any worsening of mental status or worsening of INR >1.5, and / or worsening renal function, need to transfer to liver center. - If no improvement of liver panel with above conservative medications to consider liver biopsy. - Please update GI if any acute change in status. Plan of care discussed with patient and primary team. Patient verbalized underst anding and agreed with the plan. Vital Signs/I&O Vital Signs Date Time Temp Pulse Resp B/P (MAP) Pulse Ox O2 Delivery O2 Flow Rate FiO2 03/25/20 14:00 97.6 72 17 93 Room Air 03/25/20 06:00 96/60 (72) I&O- Last 24 Hours up to 6 AM 03/25/20 06:00 Intake Total 3280 ml Output Total 950 ml Balance 2330 ml Laboratory Data Labs 24H Laboratory Tests 2 03/25/20 06:34: Nucleated Red Blood Cells % (auto) 0.0, Anion Gap 4L, Glomerular Filtration Rate 36.8L, Calcium Level 9.1, Total Bilirubin 6.3H, Aspartate Amino Transf (AST/SGOT) 78H, Alanine Aminotransferase (ALT/SGPT) 97H, Alkaline Phosphatase 128H, Total Protein 4.2#L, Albumin 1.9L, Albumin/Globulin Ratio 0.8 03/25/20 09:40: Methicillin-Resist S.aureus DNA PCR NOT DETECTED CBC/BMP Laboratory Tests 03/25/20 06:34 Microbiology Microbiology 03/24/20 Urine Culture - Final, Complete Allergies Coded Allergies: amoxicillin (Verified Adverse Reaction, Unknown, jaundice, SCLERA ORANGE, URINE ORANGE, 03/24/20) clavulanic acid (Verified Adverse Reaction, Unknown, jaundice, SCLERA ORANGE, URINE ORANGE, 03/24/20) Home Medications Scheduled Anastrozole (Anastrozole) 1 Mg Tablet, 0.5 MG PO BID, (Reported) TAKES WITH TESTOSTERONE INJECTIONS (SUN/THURS) Curcumin (Curcumin) 10 Gm Powder, 1 CAP PO BID, (Reported) Dexlansoprazole (Dexilant) 60 Mg Cap.bp, 60 MG PO DAILY, (Reported) L.acidoph/L.bulg/B.bif/S.therm (Bacid Caplet) 1 Each Tablet, 1 TAB PO DAILY, (Reported) Latanoprost (Xalatan) 0.005% 2.5ML Drops, 1 DROP OU QHS, (Reported) Lycopene (Lycopene) 10 Mg Capsule, 10 MG PO DAILY, (Reported) Magnesium Oxide (Magnesium) 500 Mg Capsule, 500 MG PO QAM, (Reported) Magnesium Oxide (Magnesium) 500 Mg Capsule, 1,000 MG PO QHS, (Reported) Montelukast Sodium (Montelukast Sodium) 10 Mg Tablet, 10 MG PO QHS, (Reported) Multivitamins (Thera M Plus Tablet) 1 Each Tablet, 1 TAB PO DAILY, (Reported) [place]-3/Dha/Epa/Fish Oil (Fish Oil 1,000 mg Softgel) 1 Each Capsule, 4 CAP PO BID, (Reported) Polyethylene Glycol 3350 (Miralax) 119 Gm Powder, 1 DOSE PO DAILY, (Reported) TAKES ONE TABLESPOON Prasterone (Dhea)/Calcium Carb (Dhea 50 mg Tablet) 1 Each Tablet, 50 MG PO DAILY, (Reported) Tadalafil (Cialis) 5 Mg Tablet, 5 MG PO QHS, (Reported) Testosterone Cypionate (Testosterone Cypionate) 200 Mg/1 Ml Vial, 1 DOSE IM 2XW, (Reported) UNKNOWN DOSE (SUN/THURS) Thyroid (Alma Thyroid) 60 Mg Tablet, 60 MG PO QAM, (Reported) Vitamin D3/Vitamin K2 (Mk4) (K2 Plus D3 Tablet) 1 Each Tablet, 1 TAB PO QHS, (Reported) [Methylation Formula] , 2 TAB PO DAILY, (Reported) [Ta-65] , 1 CAP PO QHS, (Reported) Scheduled PRN Albuterol Sulfate (Ventolin Hfa) 18 Gm Hfa.aer.ad, 2 PUFF INH Q4H PRN for SOB/WHEEZING, (Reported) Calcium Carbonate (Antacid) 200 Mg Tab.chew, 500 MG PO for INDIGESTION, (Reported) Ipratropium [place] (Ipratropium R[place]) 30 Ml [place], 2 SPRAYS INH BID PRN for CONGESTION, (Reported) TAE KLINE MD Mar 25, 2020 23:05
[2020-03-25 23:38] VITALS: BP 122/64
[2020-03-26 00:53] VITALS: BP 120/78
[2020-03-26] MEDS ORDERED: HEPARIN DRIP 25,000 UNITS in IV 1 EA IV SCH ×4 (02:39)
[2020-03-26] MEDS ORDERED: HEPARIN SOD (PORCINE) 5000UNITS/ML 1ML VIAL/SYRINGE IV ONE (02:45)
[2020-03-26] MEDS ORDERED: HEPARIN SOD (PORCINE) 5000UNITS/ML 1ML VIAL/SYRINGE IV PRN (02:45)
[2020-03-26 04:00] VITALS: BP 135/80
[2020-03-26 05:48] LABS: VENOUS BASE EXCESS -3.8 (-2.0-2.0); VENOUS HCO3 19.5 MEQ/L (23.0-27.0); VENOUS O2 SATURATION 94.7 % (60.0-80.0); VENOUS PARTIAL PRESSURE CO2 30.9 mmHg (38.0-50.0); VENOUS PARTIAL PRESSURE O2 73.6 mmHg (30.0-50.0); VENOUS PH 7.417 UNITS (7.330-7.430); VENOUS SITE NOT GIVEN; VENOUS STANDARD HCO3 21.3 MEQ/L; VENOUS TOTAL CO2 20.4 MEQ/L (24.0-28.0)
[2020-03-26 05:54] LABS: HEMATOCRIT 43.6 % (42.0-52.0); HEMOGLOBIN 15.3 g/dl (13.5-17.5); MEAN CORPUSCULAR HEMOGLOBIN 33.1 pg (27.0-33.0); MEAN CORPUSCULAR HGB CONC 35.1 g/dl (32.0-36.5); MEAN CORPUSCULAR VOLUME 94.4 fl (80.0-96.0); RED BLOOD COUNT 4.62 10^6/uL (4.30-6.10); WHITE BLOOD COUNT 8.4 10^3/uL (4.0-10.0)
[2020-03-26 05:55] LABS: PLATELET COUNT, AUTOMATED 56 10^3/uL (150-450)
[2020-03-26] MEDS ORDERED: D5W IV ONE ×3 (06:00→11:00)
[2020-03-26] MEDS ORDERED: ACETYLCYSTEINE IV ONE ×3 (06:00→11:00)
[2020-03-26 06:02] LABS: INR 1.08; PROTHROMBIN TIME 14.2 SECONDS (11.8-14.0)
[2020-03-26 06:03] LABS: PARTIAL THROMBOPLASTIN TIME 30.8 SECONDS (25.0-38.4)
[2020-03-26] MEDS: THYROID 30 MG TAB PO SCH (06:08)
[2020-03-26 06:14] LABS: BILIRUBIN,DIRECT 3.1 MG/DL (0.0-0.2); BILIRUBIN,TOTAL 4.2 MG/DL (0.2-1.0); CALCIUM LEVEL 9.3 MG/DL (8.8-10.2); CREATININE FOR GFR 1.68 MG/DL (0.70-1.30); GLOMERULAR FILTRATION RATE 42.2 (>42); TOTAL PROTEIN 4.6 GM/DL (6.4-8.2)
[2020-03-26 06:18] LABS: ACETAMINOPHEN LEVEL 2.5 UG/ML (10.0-30.0); SALICYLATE LEVEL < 1.7 MG/DL (5.0-30.0)
[2020-03-26] MEDS ORDERED: oxyCODONE 5MG TAB PO ONE (07:45)
[2020-03-26 08:00] VITALS: BP 143/85
[2020-03-26] MEDS: FOLIC ACID 1 MG TAB PO SCH (08:17)
[2020-03-26] MEDS: THIAMINE 100 MG TAB PO SCH (08:17)
[2020-03-26] MEDS: PANTOPRAZOLE 40MG TAB (PROTONIX) PO SCH (08:17)
[2020-03-26] MEDS: BISACODYL 10 MG SUPP PR SCH ×2 (08:21→20:51)
[2020-03-26 12:00] VITALS: BP 152/77
--- NOTE | 2020-03-26 12:08 | IPNPDOC ---
Text Note Date of Service The patient was seen on 03/25/20. NOTE Subjective: Remains the same as yesterday. No overnight events. Very weak and tired. No fever or chills. BP low normal. Physical Exam: Vitals as below. General Exam: Positive: Alert, Cooperative, No Acute Distress Eye Exam: Positive: PERRLA, Conjunctiva & lids normal, EOMI, Sclera icteric ENT Exam: Positive: Atraumatic, Mucous membr. moist/pink, Pharynx Normal Neck Exam: Positive: Supple; Negative: JVD, thyromegaly Chest Exam: Positive: Clear to auscultation, Normal air movement Heart Exam: Positive: Rate Normal, Regular Rhythm, Normal S1, Normal S2; Negative: Murmurs, Rubs Telemetry: Positive: No significant arrhythmia Abdomen Exam: Positive: Normal bowel sounds, Soft; Negative: Tenderness, Hepatospenomegaly Extremity Exam: Positive: Edema (right foot), Normal pulses; Negative: Clubbing, Cyanosis Neuro Exam: Positive: Normal Speech, Normal Tone Psych Exam: Positive: Memory Intact, Oriented x 3 Labs and Radiology: reviewed 79 year old male presented to the ED with 10 days history of fatigue, malaise, poor appetite and 1 week of constipation. He took some fleet enema yesterday for this and had a soft bowel movement. He also complained of disbalance and staggering gait for which he got a cane this morning for the first time ever. He also had 5 days of generalized abdominal pain about 4/10 dull aching which is now better after having a bowel movement yesterday. He denied any diarrhea or vomiting. In the ED he was found to have to have Jaudice with cholestatic pattern, Thrombocytopenia and Yo on CKD Cholestatic Jaundice hepatitis panel is negative CT abdomen shows cirrhosis of liver, no ascites. Has h/o drug induced jaundice as reported by patient about 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 Hypotension NINO low normal with a good MAP probably due to cirrhosis of liver Asthma continue albuterol prn YO on CKD 3 IVF BALJEET May use own CPAP Hypogonadism/ ED on testosterone, anastrezole and DHEA held now. Tadalis for ED held now. Hypothyroid continue home meds Glaucoma continue eye drops. VS,Fishbone, I+O VS, Fishbone, I+O Laboratory Tests 03/24/20 10:16 03/25/20 06:34 Vital Signs Date Time Temp Pulse Resp B/P (MAP) Pulse Ox O2 Delivery O2 Flow Rate FiO2 03/24/20 22:00 97.2 76 18 99/65 (76) 94 Room Air I&O- Last 24 Hours up to 6 AM 03/25/20 06:00 Intake Total 3280 ml Output Total 950 ml Balance 2330 ml CHEMA CHRISTIANSON MD Mar 25, 2020 07:50
--- NOTE | 2020-03-26 12:19 | IPNPDOC ---
Text Note Date of Service The patient was seen on 03/26/20. NOTE Subjective: Feels better this am. Able to walk better, appetite improveving. He was taking OTC supplements and weight loss medication which he bought online. He has been on steroids for several years. Physical Exam: Vitals as below. General Exam: Positive: Alert, Cooperative, No Acute Distress Eye Exam: Positive: PERRLA, Conjunctiva & lids normal, EOMI, Sclera icteric ENT Exam: Positive: Atraumatic, Mucous membr. moist/pink, Pharynx Normal Neck Exam: Positive: Supple; Negative: JVD, thyromegaly Chest Exam: Positive: Clear to auscultation, Normal air movement Heart Exam: Positive: Rate Normal, Regular Rhythm, Normal S1, Normal S2; Negative: Murmurs, Rubs Telemetry: Positive: No significant arrhythmia Abdomen Exam: Positive: Normal bowel sounds, Soft; Negative: Tenderness, Hepatospenomegaly Extremity Exam: Positive: Edema (right foot), Normal pulses; Negative: Clubbing, Cyanosis Neuro Exam: Positive: Normal Speech, Normal Tone Psych Exam: Positive: Memory Intact, Oriented x 3 Labs and Radiology: reviewed 79 year old male presented to the ED with 10 days history of fatigue, malaise, poor appetite and 1 week of constipation. He took some fleet enema yesterday for this and had a soft bowel movement. He also complained of disbalance and stag gering gait for which he got a cane this morning for the first time ever. He also had 5 days of generalized abdominal pain about 4/10 dull aching which is now better after having a bowel movement yesterday. He denied any diarrhea or vomiting. In the ED he was found to have to have Jaundice with cholestatic pattern, Thrombocytopenia and [place] on CKD Cholestatic Jaundice with cirrhosis of liver. Drug induced jaundice due to use of OTC drugs, tylenol, weight loss med. 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 Hepatitis panel is negative Started on N- acetyl cysteine. peripheral smear for pathology review, Haptoglobin levels, Autoimmune hepatitis panel ordered. LDH normal. Liver doppler. 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 Hypotension on admission now improved. probably due to cirrhosis of liver/ with dehydration Asthma continue albuterol prn SIXTO on CKD 3 improving due to poor oral intake, dehydration. BALJEET May use own CPAP Hypogonadism/ ED on testosterone, anastrezole and DHEA held now. Tadalis for ED held now. Hypothyroid continue home meds Glaucoma continue eye drops. VS,Fishbone, I+O VS, Fishbone, I+O Laboratory Tests 03/26/20 05:37 Vital Signs Date Time Temp Pulse Resp B/P (MAP) Pulse Ox O2 Delivery O2 Flow Rate FiO2 03/26/20 08:00 98.3 91 20 143/85 (104) 96 Room Air I&O- Last 24 Hours up to 6 AM 03/26/20 06:00 Intake Total 1890 ml Output Total 850 ml Balance 1040 ml CHEMA CHRISTIANSON MD Mar 26, 2020 12:19
[2020-03-26 16:00] VITALS: BP 134/79
[2020-03-26] MEDS ORDERED: FLUBLOK(EGG FREE)(QUAD)INFLUENZA VACC 0.5ML SYRINGE 18YRS & OLDER IM ONE (17:00)
[2020-03-26 20:00] VITALS: BP 140/83
[2020-03-26] MEDS: MONTELUKAST 10 MG TAB PO SCH (20:51)
[2020-03-26] MEDS: LATANOPROST 0.005% OPHTH SOLN 2.5 ML OU SCH (20:51)
[2020-03-27] VITALS (7 sets, daily range): BP systolic 140–164; BP diastolic 77–88
[2020-03-27] MEDS ORDERED: oxyCODONE 5MG TAB PO ONE (04:30)
[2020-03-27] MEDS: THYROID 30 MG TAB PO SCH (05:06)
[2020-03-27 06:11] LABS: HEMATOCRIT 40.8 % (42.0-52.0); HEMOGLOBIN 14.5 g/dl (13.5-17.5); MEAN CORPUSCULAR HEMOGLOBIN 33.1 pg (27.0-33.0); MEAN CORPUSCULAR HGB CONC 35.5 g/dl (32.0-36.5); MEAN CORPUSCULAR VOLUME 93.2 fl (80.0-96.0); RED BLOOD COUNT 4.38 10^6/uL (4.30-6.10); WHITE BLOOD COUNT 7.5 10^3/uL (4.0-10.0)
[2020-03-27 06:12] LABS: PLATELET COUNT, AUTOMATED 68 10^3/uL (150-450)
[2020-03-27 06:43] LABS: BILIRUBIN,TOTAL 3.2 MG/DL (0.2-1.0); CREATININE FOR GFR 1.56 MG/DL (0.70-1.30); GLOMERULAR FILTRATION RATE 45.9 (>42); POTASSIUM SERUM 3.6 MEQ/L (3.5-5.1); TOTAL PROTEIN 4.7 GM/DL (6.4-8.2)
[2020-03-27] MEDS: THIAMINE 100 MG TAB PO SCH (09:00)
[2020-03-27] MEDS: BISACODYL 10 MG SUPP PR SCH ×3 (09:00→21:00)
[2020-03-27] MEDS: PANTOPRAZOLE 40MG TAB (PROTONIX) PO SCH (09:01)
[2020-03-27] MEDS: FOLIC ACID 1 MG TAB PO SCH (09:01)
[2020-03-27] MEDS ORDERED: SLF 3 ML SYR IV PRN (11:15)
[2020-03-27] MEDS ORDERED: THIA100TA PO (11:31)
[2020-03-27] MEDS ORDERED: FOLI1TAB11 PO (11:31)
[2020-03-27] MEDS ORDERED: IBUPROFEN 800 MG TAB PO ONE (13:00)
[2020-03-27] MEDS ORDERED: MAGNESIUM CITRATE 300 ML BTL PO ONE (13:00)
[2020-03-27] MEDS: SLF 3 ML SYR IV SCH ×2 (14:00→22:00)
[2020-03-27] MEDS ORDERED: PROHANCE 279.3MG/ML 5ML VIAL As Ordered ONE ×2 (16:46→16:47)
[2020-03-27 17:07] LABS: ANTI-MITOCHONDRIAL ANTIBODY <20.0 Units (0.0-20.0); ANTI-SMOOTH MUSCLE ANTIBODY 7 Units (0-19); ANTINUCLEAR ANTIBODIES DIRECT Negative (Negative); HAPTOGLOBIN < 10 mg/dL (34-355); LIVER-KIDNEY MICROSOMAL ABY <20.1 Units (0.0-20.0)
--- NOTE | 2020-03-27 17:29 | REPVR ---
PROCEDURE INFORMATION: Exam: MR Head Without Contrast Exam date and time: 03/27/2020 4:38 PM Age: 79 years old Clinical indication: Condition or disease; Altered mental status/memory loss; Confusion or disorientation; Patient HX: Weakness, ataxia, confusion, HX left cavernous sinus TECHNIQUE: Imaging protocol: MR of the head without contrast. COMPARISON: CT Head without contrast 03/24/2020 10:27 AM FINDINGS: Brain: There is no restricted diffusion to suggest acute infarction.Increased signal intensity of the deep and subcortical white matter on the FLAIR and T2 weighted sequences is most consistent with microangiopathy. There is no acute intracranial hemorrhage or mass. No prior microhemorrhages. Ventricles: The ventricles appear mildly enlarged, but not out of proportion to the degree of parenchymal volume loss. Bones/joints: Unremarkable. Sinuses: There is fluid and mucosal disease in the left maxillary antrum and right sphenoid air cell with mucoperiosteal thickening in the paranasal sinuses. The asymmetry seen in the left cavernous sinus on the CT is not confirmed on the MRI the appearance was likely in part due to asymmetric expansion of the left sphenoid air cell. Mastoid air cells: There is fluid in the mastoid air cells bilaterally. Orbits: The orbits are unremarkable. Soft tissues: Unremarkable. IMPRESSION: No acute cerebral infarction or intracranial hemorrhage. No obvious abnormality is seen in the left cavernous sinus however no coronal or gadolinium-enhanced images were performed. Electronically signed by: Nadeen Mancilla On 03/27/2020 17:28:56 PM
--- NOTE | 2020-03-27 17:37 | REPVR ---
PROCEDURE INFORMATION: Exam: MR Angiogram Head Without Contrast, Arteries Exam date and time: 03/27/2020 4:38 PM Age: 79 years old Clinical indication: Condition or disease; Cognitive deficit; Altered mental status; Patient HX: Weakness, ataxia, confusion, HX left cavernous sinus TECHNIQUE: Imaging protocol: MR angiogram head without contrast. Exam focused on the arteries. 3D rendering (Not supervised by radiologist): MIP and/or 3D reconstructed images were created by the technologist. COMPARISON: CT Head without contrast 03/24/2020 10:27 AM FINDINGS: ANTERIOR CIRCULATION: Right internal carotid artery: Intracranial segment is patent with no significant stenosis. No aneurysm. Right middle cerebral artery: There appears to be diminishment in size of the distal right M1 segment however the proximal right M2 branches appear patent. Right anterior cerebral artery: No occlusion or significant stenosis. No aneurysm. Left internal carotid artery: Intracranial segment is patent with no significant stenosis. No aneurysm. Left middle cerebral artery: No occlusion or significant stenosis. No aneurysm. Left anterior cerebral artery: No occlusion or significant stenosis. No aneurysm. POSTERIOR CIRCULATION: Right vertebral artery: No occlusion or significant stenosis. No aneurysm. Left vertebral artery: No occlusion or significant stenosis. No aneurysm. Basilar artery: No occlusion or significant stenosis. No aneurysm. Right posterior cerebral artery: origin of the right posterior cerebral artery from the anterior circulation. Left posterior cerebral artery: No occlusion or significant stenosis. No aneurysm. IMPRESSION: No acute arterial occlusion. Electronically signed by: Nadeen Mancilla On 03/27/2020 17:37:09 PM
--- NOTE | 2020-03-27 17:42 | REPVR ---
PROCEDURE INFORMATION: Exam: MR Angiogram Head With Contrast, Venogram Exam date and time: 03/27/2020 4:20 PM Age: 79 years old Clinical indication: Patient HX: Weakness, ataxia, confusion, HX left cavernous sinus TECHNIQUE: Imaging protocol: MR angiogram of the head with intravenous contrast. Exam focused on the veins. 3D rendering (Not supervised by radiologist): MIP and/or 3D reconstructed images were created by the technologist. Contrast material: PROHANCE; Contrast volume: 8 ml; Contrast route: INTRAVENOUS (IV); COMPARISON: CT Head without contrast 03/24/2020 10:27 AM FINDINGS: Superior sagittal sinus: The superior sagittal sinus preferentially drains into the right transverse sinus. Straight sinus: The straight sinus drains primarily into the left transverse sinus. Internal cerebral and cortical veins: Unremarkable as visualized. Transverse sinuses: Patent. Sigmoid sinuses: Patent. Internal jugular veins: Visualized segment patent. IMPRESSION: No evidence of thrombosis of the venous sinuses or visualized portions of the cerebral cortical veins. Electronically signed by: Nadeen Mancilla On 03/27/2020 17:42:42 PM
[2020-03-27] MEDS: LATANOPROST 0.005% OPHTH SOLN 2.5 ML OU SCH (21:14)
[2020-03-27] MEDS: MONTELUKAST 10 MG TAB PO SCH (21:14)
[2020-03-28] VITALS: BP 123/79
[2020-03-28 04:00] VITALS: BP 150/82
[2020-03-28 05:30] LABS: HEMATOCRIT 41.9 % (42.0-52.0); HEMOGLOBIN 14.5 g/dl (13.5-17.5); MEAN CORPUSCULAR HGB CONC 34.6 g/dl (32.0-36.5); MEAN CORPUSCULAR VOLUME 95.2 fl (80.0-96.0); PLATELET COUNT, AUTOMATED 90 10^3/uL (150-450); WHITE BLOOD COUNT 7.6 10^3/uL (4.0-10.0)
[2020-03-28 05:52] LABS: ALBUMIN 2.2 GM/DL (3.2-5.2); BILIRUBIN,TOTAL 2.6 MG/DL (0.2-1.0); CALCIUM LEVEL 9.6 MG/DL (8.8-10.2); CREATININE FOR GFR 1.49 MG/DL (0.70-1.30); GLOMERULAR FILTRATION RATE 48.4 (>42); POTASSIUM SERUM 4.4 MEQ/L (3.5-5.1)
[2020-03-28] MEDS: THYROID 30 MG TAB PO SCH (06:26)
[2020-03-28] MEDS: SLF 3 ML SYR IV SCH (06:26)
[2020-03-28] MEDS: BISACODYL 10 MG SUPP PR SCH (07:57)
[2020-03-28 08:00] VITALS: BP 136/80
[2020-03-28 09:04] VITALS: BP 111/81
[2020-03-28] MEDS: PANTOPRAZOLE 40MG TAB (PROTONIX) PO SCH (09:21)
[2020-03-28] MEDS: FOLIC ACID 1 MG TAB PO SCH (09:21)
[2020-03-28] MEDS: THIAMINE 100 MG TAB PO SCH (09:21)
--- NOTE | 2020-03-28 09:45 | IPNPDOC ---
Text Note Date of Service The patient was seen on 03/27/20. NOTE Subjective: He has been having headache all night got a oxycodone early this am then slept for a whie however when he woke up he still had the severe headache and seemed a little confused too. He also complains of constipation. Akira has not had a good bowel movement in 1 week. Given 1 dose of of ibuprofen with improvement of headache . however in view of his being on steroids he is at high risk for venous thrombosis. Also his CT head on admission showed asymmetrical appearance of the left cavernous sinus will get an MRV to rule out cavernous sinus thrombosis. Physical Exam: Vitals as below. General Exam: Positive: Alert, Cooperative, No Acute Distress Eye Exam: Positive: PERRLA, Conjunctiva & lids normal, EOMI, Sclera icteric ENT Exam: Positive: Atraumatic, Mucous membr. moist/pink, Pharynx Normal Neck Exam: Positive: Supple; Negative: JVD, thyromegaly Chest Exam: Positive: Clear to auscultation, Normal air movement Heart Exam: Positive: Rate Normal, Regular Rhythm, Normal S1, Normal S2; Negative: Murmurs, Rubs Telemetry: Positive: No significant arrhythmia Abdomen Exam: Positive: Normal bowel sounds, Soft; Negative: Tenderness, Hepatosplenomegaly Extremity Exam: Positive: Edema (right foot), Normal pulses; Negative: Clubbing, Cyanosis Neuro Exam: Positive: Normal Speech, Normal Tone Labs and Radiology: reviewed 79 year old male presented to the ED with 10 days history of fatigue, malaise, poor appetite and 1 week of constipation. He took some fleet enema yesterday for this and had a soft bowel movement. He also complained of disbalance and staggering gait for which he got a cane this morning for the first time ever. He also had 5 days of generalized abdominal pain about 4/10 dull aching which is now better after having a bowel movement yesterday. He denied any diarrhea or vomiting. In the ED he was found to have to have Jaundice with cholestatic pattern, Thrombocytopenia and Yo on CKD Headache MRV to rule out cavernous sinuous thrombosis. MRI and MRA for any other abnormalities. ibuprofen 1 dose Cholestatic Jaundice with cirrhosis of liver. Drug induced jaundice due to use of OTC drugs, tylenol, weight loss med. Cirrhosis of liver could be due to [facility] use of Cialis / testosterone Hepatitis panel is negative received N- acetyl cysteine. peripheral smear for pathology review, Haptoglobin levels, Autoimmune hepatitis panel ordered. LDH normal. But haptoglobin is very low. Liver doppler still pending. 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 improving Hypotension on admission now improved. probably due to cirrhosis of liver/ with dehydration Asthma continue albuterol prn YO on CKD 3 improving due to poor oral intake, dehydration. BALJEET May use own CPAP Hypogonadism/ ED on testosterone, anastrezole and DHEA held now. Tadalis for ED all stopped. Hypothyroid continue home meds Glaucoma continue eye drops. VS,Fishbone, I+O VS, Fishbone, I+O Laboratory Tests 03/28/20 04:41 Vital Signs Date Time Temp Pulse Resp B/P (MAP) Pulse Ox O2 Delivery O2 Flow Rate FiO2 03/28/20 09:04 97.6 88 18 111/81 (91) 99 Room Air I&O- Last 24 Hours up to 6 AM 03/28/20 06:00 Intake Total 850 ml Output Total 1 ml Balance 849 ml HCEMA CHRISTIANSON MD Mar 28, 2020 09:45
--- NOTE | 2020-03-28 17:43 | DS.PDOC ---
Discharge Summary General Date of Admission Mar 24, 2020 at 15:54 Date of Discharge 03/28/20 Discharge Summary PROCEDURES PERFORMED DURING STAY: [None]. 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 Thrombocytopenia YO on CKD dehydration SECONDARY DIAGNOSIS: CKD stage 3 Asthma ACID REFLUX ERECTILE DYSFUNCTION Hypogonadism BLADDER STONES/ Atonic bladder BPH s/p TURP h/o LYME DISEASE SLEEP APNEA H/o Jaundice due to medications. Glaucoma Hypothyroid COMPLICATIONS/CHIEF COMPLAINT: Oy,Gait Instability. HOSPITAL COURSE: 79 year old male presented to the ED with 10 days history of fatigue, malaise, poor appetite and 1 week of constipation. He took some fleet enema yesterday for this and had a soft bowel movement. He also complained of disbalance and staggering gait for which he got a cane this morning for the first time ever. He also had 5 days of generalized abdominal pain about 4/10 dull aching which is now better after having a bowel movement yesterday. He denied any diarrhea or vomiting. In the ED he was found to have to have Jaundice with cholestatic pattern, Thrombocytopenia and Yo on CKD Headache resolved. No cavernous sinus thrombosis MRI and MRA and mrv all negative. Drug induced hepatitis with underlying cirrhosis of liver. Drug induced jaundice due to use of OTC drugs, tylenol, weight loss med. Cirrhosis of liver could be due to alf use of Cialis / testosterone Hepatitis panel is negative received N- acetyl cysteine. peripheral smear for pathology review, Haptoglobin levels, Autoimmune hepatitis panel ordered. LDH normal. But haptoglobin is very low. Liver doppler done report still pending. Follow up DR Foy in 4 to 6 weeks Thrombocytopenia due to cirrhosis of liver with acute hepatitis. improving Hypotension on admission now improved. probably due to dehydration Asthma continue albuterol prn YO on CKD 3 improved due to poor oral intake, dehydration. BALJEET May use own CPAP Hypogonadism/ ED on testosterone, anastrozole and DHEA held now. Tadalis for ED all stopped. Hypothyroid continue home meds Glaucoma continue eye drops. DISCHARGE MEDICATIONS: Please see below. ALLERGIES: Please see below. PHYSICAL EXAMINATION ON DISCHARGE: VITAL SIGNS: Please see below. General Exam: Positive: Alert, Cooperative, No Acute Distress Eye Exam: Positive: PERRLA, Conjunctiva & lids normal, EOMI, Sclera icteric ENT Exam: Positive: Atraumatic, Mucous membr. moist/pink, Pharynx Normal Neck Exam: Positive: Supple; Negative: JVD, thyromegaly Chest Exam: Positive: Clear to auscultation, Normal air movement Heart Exam: Positive: Rate Normal, Regular Rhythm, Normal S1, Normal S2; Negative: Murmurs, Rubs Telemetry: Positive: No significant arrhythmia Abdomen Exam: Positive: Normal bowel sounds, Soft; Negative: Tenderness, Hepatosplenomegaly Extremity Exam: Positive: Edema (right foot), Normal pulses; Negative: Clubbing, Cyanosis Neuro Exam: Positive: Normal Speech, Normal Tone LABORATORY DATA: Please see below. ACTIVITY: [As tolerated]. DIET: As tolerated DISPOSITION: 01 Home, Self-Care. DISCHARGE INSTRUCTIONS: PMD in [address] Foy in 4 to 6 weeks. ITEMS TO FOLLOWUP ON ON OUTPATIENT: Liver doppler work up for autoimmune hepatitis in progress. DISCHARGE CONDITION: [Stable]. TIME SPENT ON DISCHARGE: 35 minutes. Vital Signs/I&Os Vital Signs Date Time Temp Pulse Resp B/P (MAP) Pulse Ox O2 Delivery O2 Flow Rate FiO2 03/28/20 09:04 97.6 88 18 111/81 (91) 99 Room Air I&O- Last 24 Hours up to 6 AM 03/28/20 07:00 Intake Total 850 ml Output Total 1 ml Balance 849 ml Laboratory Data Labs 24H Laboratory Tests 2 03/28/20 04:41: Nucleated Red Blood Cells % (auto) 0.0, Immature Platelet Fraction 4.9, Anion Gap 1L, Glomerular Filtration Rate 48.4, Calcium Level 9.6, Total Bilirubin 2.6H, Aspartate Amino Transf (AST/SGOT) 51H, Alanine Aminotransferase (ALT/SGPT) 90H, Alkaline Phosphatase 169H, Total Protein 5.0L, Albumin 2.2L, Albumin/Globulin Ratio 0.8 CBC/BMP Laboratory Tests 03/28/20 04:41 Microbiology Microbiology 03/24/20 Urine Culture - Final, Complete Discharge Medications Scheduled Dexlansoprazole (Dexilant) 60 Mg Real.bp, 60 MG PO DAILY, (Reported) Folic Acid (Folic Acid) 1 Mg Tablet, 1 MG PO DAILY L.acidoph/L.bulg/B.bif/S.therm (Bacid Caplet) 1 Each Tablet, 1 TAB PO DAILY, (Reported) Latanoprost (Xalatan) 0.005% 2.5ML Drops, 1 DROP OU QHS, (Reported) Magnesium Oxide (Magnesium) 500 Mg Capsule, 500 MG PO QAM, (Reported) Magnesium Oxide (Magnesium) 500 Mg Capsule, 1,000 MG PO QHS, (Reported) Montelukast Sodium (Montelukast Sodium) 10 Mg Tablet, 10 MG PO QHS, (Reported) Multivitamins (Thera M Plus Tablet) 1 Each Tablet, 1 TAB PO DAILY, (Reported) Polyethylene Glycol 3350 (Miralax) 119 Gm Powder, 1 DOSE PO DAILY, (Reported) TAKES ONE TABLESPOON Thiamine Hcl (Vitamin B-1) 100 Mg Tablet, 100 MG PO DAILY Thyroid ([place] Thyroid) 60 Mg Tablet, 60 MG PO QAM, (Reported) Scheduled PRN Albuterol Sulfate (Ventolin Hfa) 18 Gm Hfa.aer.ad, 2 PUFF INH Q4H PRN for SOB/WHEEZING, (Reported) Calcium Carbonate (Antacid) 200 Mg Tab.chew, 500 MG PO for INDIGESTION, (Reported) Ipratropium Tebbetts (Ipratropium Tebbetts) 30 Ml Sontag, 2 SPRAYS INH BID PRN for CONGESTION, (Reported) Allergies Coded Allergies: amoxicillin (Verified Adverse Reaction, Unknown, jaundice, SCLERA ORANGE, URINE ORANGE, 03/24/20) clavulanic acid (Verified Adverse Reaction, Unknown, jaundice, SCLERA ORANGE, URINE ORANGE, 03/24/20) CHEMA CHRISTIANSON MD Mar 28, 2020 17:43
--- NOTE | 2020-03-28 21:05 | ECHO ---
DATE OF PROCEDURE: 03/26/2020 Age: 79 Gender: Male Height: 70 inches Weight: 185 pounds Body surface area: 2.02 m/s Inpatient PCU Room 3224 REFERRING PHYSICIAN: Wong Whaley MD INDICATION: Abnormal electrocardiogram (EKG). MEASUREMENTS: 2D dimensions: RV 4.2 cm LV 5.7 cm Septum 1.1 cm Posterior wall 1.0 cm Aortic root 3.9 cm LA 4.2 cm Left ventricular ejection fraction (LVEF) 70%. DOPPLER MEASUREMENTS: AV 0.93 m/s LVOT 0.8 m/s LVOT diameter 2.0 cm MV E 110. Early mitral deceleration time 280 milliseconds E prime medial 8.6 E prime lateral 8.2 Average E/E prime ratio 13/PCWP 18 mmHg PV 0.6 m/s Pulmonary artery acceleration time 106 milliseconds PASP 34 mmHg IVC 2.4 cm COMMENTS: Underlying atrial fibrillation with controlled ventricular response. Intraventricular conduction disturbance. Unfortunate, image quality was relatively poor, but some diagnostic useful information was obtained. M-mode and 2 dimension echocardiography was performed with pulse, continuous wave, color flow and tissue Doppler studies. Normal left ventricular size, wall thickness and hypokinetic wall motion. Mildly dilated left atrium with current estimated mean left atrial pressure is at least mildly increased. Mildly dilated right heart chambers with normal wall motion and Doppler evidence of at least mild pulmonary hypertension. Mildly dilated inferior vena cava with normal respiratory collapse in keeping with central venous pressure upper limites of normal. Aortic root diameter upper limits of normal. Mild aortic valvular sclerosis without stenosis and no more than trace aortic insufficiency. Moderately thickened anterior leaflet of the mitral valve with adequate leaflet excursion and no posterior systolic buckling. No inflow tract obstruction and only mild mitral insufficiency. Normal appearing tricuspid valve with very mild insufficiency. No separate endocardiac mass or pericardial effusion. Due to the limited visual imaging quality, would recommend that consideration of a transesophageal echocardiogram to rule out the possibility of an anterior leaflet vegetation on his mitral valve. Complete blood count, sedimentation rate and two sets of blood cultures would also be recommended. [facility]
--- NOTE | 2020-03-30 12:55 | ECGEPIP ---
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
--- NOTE | 2020-04-01 16:45 | ECGEPIP ---
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
--- NOTE | 2020-04-16 12:40 | REP ---
COMPLETE ABDOMINAL UTLRASOUND: 03/26/20 CLINICAL: Evaluate for cirrhosis. TECHNIQUE: Real time childress scale and color Doppler evaluation using curved array transducers. FINDINGS: The liver demonstrates normal echotexture and measures 14cm in craniocaudal length without focal hepatic lesion identified. Subtle nodular contour cannot be excluded and may reflect cirrhosis. The pancreas is unremarkable. The spleen is enlarged and measures 13.5 x 11.2 x 5.4cm (splenic index equals 816). No focal splenic lesions are identified. The gallbladder is moderately distended and includes a 14mm gallstone at the neck of the gallbladder. Gallbladder wall is upper limits of normal at 2.6mm without pericholecystic fluid. No biliary ductal dilation is appreciated and the common bile duct measures 4.5mm diameter. The bilateral kidneys are normal in reniform shape without hydronephrosis and demonstrate non-obstructing intrarenal calculi. The right kidney measures 12.3 x 5.8 x 4.7cm. The left kidney measures 13.1 x 4.9 x 4.8cm and includes a 2.6cm mid-pole septated cyst and 7mm lower pole simply cyst. The abdominal aorta measures 2.4cm maximal diameter. A small amount of free fluid is identified in a perisplenic distribution. Doppler interrogation demonstrates essentially normal flow velocities and wave patterns through the pleural veins and hepatic veins although there is phasicity to the hepatic veins suggesting underlying cardiac disease and possible tricuspid regurgitation. 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 Main portal vein measures 17mm diameter. IMPRESSION: 1. Relatively normal appearance to the liver although subtle nodular contour may reflect underlying cirrhosis. 2. Splenomegaly. No focal splenic lesions. 3. Cholelithiasis. 4. Nephrolithiasis and complex left renal cyst. 5. Color Doppler evaluation demonstrates the possibility of a portosystemic shunt between the right portal vein and main hepatic vein. This may be further evaluated by CT of the abdomen with contrast obtained in arterial and portal venous phases of enhancement. MTDD
== END 2020-03-28 10:18 | disposition home or self-care (01) | DRG 442 ==
LOC: M ED 09:44 → M ED INP 15:54 → EEVIPCON 15:54 → M MS5PR 18:01 → M PCU 03-26 00:53
PROVIDERS: ADMIT Internal Medicine Nephrology; ATTEND Internal Medicine Nephrology
DX: K71.6 Toxic liver disease with hepatitis, not elsewhere classified (principal); N17.9 Acute kidney failure, unspecified; B17.9 Acute viral hepatitis, unspecified; R53.83 Other fatigue; R53.81 Other malaise; K59.00 Constipation, unspecified; R63.0 Anorexia; N18.3 Chronic kidney disease, stage 3 (moderate); J45.909 Unspecified asthma, uncomplicated; K21.9 Gastro-esophageal reflux disease without esophagitis; D69.59 Other secondary thrombocytopenia; R51 Headache; N52.9 Male erectile dysfunction, unspecified; E29.1 Testicular hypofunction; K74.69 Other cirrhosis of liver; G47.33 Obstructive sleep apnea (adult) (pediatric); R63.4 Abnormal weight loss; I95.9 Hypotension, unspecified; R26.0 Ataxic gait; N31.2 Flaccid neuropathic bladder, not elsewhere classified; N40.0 Benign prostatic hyperplasia without lower urinary tract symptoms; H40.9 Unspecified glaucoma; E03.9 Hypothyroidism, unspecified; Z79.899 Other long term (current) drug therapy; Z88.0 Allergy status to penicillin; Z88.8 Allergy status to other drugs, medicaments and biological substances

== ENCOUNTER → 2020-04-15 | Outpatient (CLI) | payer MEDICARE, BC ==
[~2020-04-15] MED LIST changes: +ANAS1TAB2 PO; +BACITAB PO; +CIAL5TAB PO; +CURC1POW2 MC; +CURC1POW2 PO; +DEXI60CA2 PO; +DHEA50TA2 PO; +FOLI1TAB11 PO; +IPRA3SP INH; +K2 P1TAB PO; +LATA0.0015 OP; +LYCO10CA3 PO; +MAGN1CAP PO; +MIRA3350 PO; +MONT10TA4 PO; +OMEG10002 PO; +RA M500C PO; +TEST200I14 IM; +THIA100TA PO; +THYR60TA PO; +VENTAER INH; +VITMTA PO; +XALA0.007 OU; +[UNRECOGNIZED DRUG - CODE] PO; +[UNRECOGNIZED DRUG - CODE] PO; +[UNRECOGNIZED DRUG - OTHER] PO; +[UNRECOGNIZED DRUG - REMARK] PO
[2020-04-15 11:35] LABS: INR 1.15
[2020-04-15 11:36] LABS: PARTIAL THROMBOPLASTIN TIME 32.1 SECONDS (24.2-38.5)
[2020-04-15 11:52] LABS: BILIRUBIN,DIRECT 1.2 MG/DL (0.0-0.2); BILIRUBIN,TOTAL 2.2 MG/DL (0.2-1.0); CALCIUM LEVEL 9.8 MG/DL (8.8-10.2); CREATININE FOR GFR 1.56 MG/DL (0.70-1.30); GLOMERULAR FILTRATION RATE 45.9 (>42); POTASSIUM SERUM 4.2 MEQ/L (3.5-5.1); TOTAL PROTEIN 6.3 GM/DL (6.4-8.2)
== END ==
LOC: M LAB 10:26
PROVIDERS: ATTEND Internal Medicine Gastroenterology
DX: R74.8 Abnormal levels of other serum enzymes (principal); R50.9 Fever, unspecified; Z20.828 Contact with and (suspected) exposure to other viral communicable diseases
CPT/HCPCS: 36415; 71046; 80048; 80076; 85610; 85730; 87103; C9803; U0003

== ENCOUNTER → 2020-04-15 | Outpatient (CLI) | payer MEDICARE, BC ==
--- NOTE | 2020-04-21 13:34 | REP ---
TWO-VIEW CHEST HISTORY: Fever. COMPARISON: 11/21/2018. TECHNIQUE: Two views of the chest are performed. FINDINGS: Scattered fibrotic changes are stable. There is no acute infiltrate. Heart is normal in size. Mediastinal silhouette is unchanged. There are mild degenerative changes of the spine. IMPRESSION: Stable chronic findings. No evidence of acute pulmonary disease. DD: LLOYD
== END ==
LOC: M RAD 10:31
PROVIDERS: ATTEND Family Medicine
DX: R50.9 Fever, unspecified (principal)

== ENCOUNTER → 2020-04-15 | Outpatient (REF) | payer MEDICARE, BC | LOC: M LAB 17:55 | PROVIDERS: ATTEND Family Medicine | DX: R50.9 Fever, unspecified (principal) ==

== ENCOUNTER → 2020-04-15 | Outpatient (CLI) | payer MEDICARE, BC | LOC: M LABSMTC 09:46 | PROVIDERS: ATTEND Family Medicine | DX: Z20.828 Contact with and (suspected) exposure to other viral communicable diseases (principal) ==

== ENCOUNTER → 2020-06-18 | Outpatient (CLI) | payer MEDICARE, BC ==
[~2020-06-18] MED LIST changes: -MONT10TA4 PO; +MONT5TAB2 PO
== END ==
LOC: M LABSMTC 09:34
PROVIDERS: ATTEND Anesthesiology
DX: Z01.812 Encounter for preprocedural laboratory examination (principal); Z20.828 Contact with and (suspected) exposure to other viral communicable diseases

== ENCOUNTER → 2020-06-18 | Outpatient (CLI) | payer MEDICARE, BC ==
[2020-06-18 08:21] LABS: PLATELET COUNT, AUTOMATED 173 10^3/uL (150-450)
[2020-06-18 08:35] LABS: INR 1.02; PROTHROMBIN TIME 13.6 SECONDS (12.5-14.3)
[2020-06-18 08:36] LABS: PARTIAL THROMBOPLASTIN TIME 31.8 SECONDS (24.2-38.5)
[2020-06-18 09:13] LABS: ALBUMIN 3.6 GM/DL (3.2-5.2); BILIRUBIN,DIRECT 0.4 MG/DL (0.0-0.2); BILIRUBIN,TOTAL 1.4 MG/DL (0.2-1.0); TOTAL PROTEIN 6.9 GM/DL (6.4-8.2)
--- NOTE | 2020-06-18 09:17 | REP ---
INDICATION: ABNORMAL RESULTS OF LIVER FUNCTION- LABS 1ST TECHNIQUE: Real time B-mode childress scale and color Doppler ultrasound examination using curved array transducer. FINDINGS: The liver demonstrates nodular contour and coarsened echotexture consistent with cirrhosis with suggestions for hepatomegaly. The pancreas is incompletely evaluated due to interposed bowel gas but visualized portions appear normal. The spleen is upper limits of normal in size and without focal splenic lesion identified. Gallbladder demonstrates cholelithiasis without wall thickening or pericholecystic fluid. No biliary ductal dilatation is appreciated and the common bile duct measures 3.6 mm diameter. The kidneys are relatively normal in reniform shape and size without hydronephrosis. Right kidney measures 11.6 x 4.8 x 5.8 cm with increased central sinus fat and possible nonobstructing calculi. Left kidney measures 11.6 x 5.4 x 4.4 cm and includes 2.7 cm complex cyst along with increased central sinus fat and nonobstructing calculi up to 5 mm. The abdominal aorta is unremarkable and measures 2.3 cm maximal diameter. The main portal vein measures 14 mm diameter and demonstrates normal velocity and wave pattern. There is continued evidence for a shunt extending from the main portal vein/right portal vein to the main hepatic vein. The hepatic veins demonstrate wave patterns and suggestions for cardiac tricuspid regurgitation. The splenic vein and superior mesenteric vein demonstrate normal velocity, wave pattern and direction. Main portal vein: 25 cm/sec Mid splenic vein: 28 cm/sec Superior mesenteric vein: 22 cm/sec IMPRESSION: 1. 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 2. Cholelithiasis. 3. Complex left renal cyst and bilateral renal calculi. <Electronically signed by Yassine Hadley > 06/18/20 [id number]
== END ==
LOC: M RAD 07:12
PROVIDERS: ATTEND Internal Medicine Gastroenterology
DX: Z01.812 Encounter for preprocedural laboratory examination (principal); Z20.828 Contact with and (suspected) exposure to other viral communicable diseases; R94.5 Abnormal results of liver function studies; K71.0 Toxic liver disease with cholestasis; N28.1 Cyst of kidney, acquired; N20.0 Calculus of kidney; K74.60 Unspecified cirrhosis of liver
CPT/HCPCS: 36415; 76700; 80076; 82172; 82977; 83010; 83883; 85027; 85610; 85730; 93975; U0003

== ENCOUNTER 2020-06-22 13:32 | Day surgery (SDC) | payer MEDICARE, BC ==
[~2020-06-22] VITALS: Ht 177.8 cm; Wt 79.4 kg
[~2020-06-22 13:32] MED LIST changes: +NS 1,000 ML IV ONE
[2020-06-22] MEDS ORDERED: propofoL 500 MG/50 ML VIAL As Ordered ONE (14:21)
[2020-06-22] MEDS ORDERED: LIDOCAINE 2% 100MG/5ML SDV (FOR ANES.) As Ordered ONE (14:31)
--- NOTE | 2020-06-22 15:31 | ROOR ---
Patient Name: Kevin Mcqueen Procedure Date: 06/22/2020 2:41 PM Date of : 1940 Age: 79 Room: [facility] Gender: Male Note Status: Finalized Procedure: Upper GI endoscopy Indications: Cirrhosis rule out esophageal varices Providers: Laith Foy MD Referring MD: Marivel MAYER DO Requesting Provider: Medicines: Monitored Anesthesia Care Complications: No immediate complications. Procedure: Pre-Anesthesia Assessment: - Prior to the procedure, a History and Physical was performed, and patient medications and allergies were reviewed. The patient is competent. The risks and benefits of the procedure and the sedation options and risks were discussed with the patient. All questions were answered and informed consent was obtained. Patient identification and proposed procedure were verified by the physician, the nurse and the anesthesiologist in the procedure room. Mental Status Examination: alert and oriented. Airway Examination: normal oropharyngeal airway and neck mobility. Respiratory Examination: clear to auscultation. CV Examination: normal. Prophylactic Antibiotics: The patient does not require prophylactic antibiotics. Prior Anticoagulants: The patient has taken no previous anticoagulant or antiplatelet agents. ASA Grade Assessment: II - A patient with mild systemic disease. After reviewing the risks and benefits, the patient was deemed in satisfactory condition to undergo the procedure. The anesthesia plan was to use monitored anesthesia care (MAC). Immediately prior to administration of medications, the patient was re-assessed for adequacy to receive sedatives. The heart rate, respiratory rate, oxygen saturations, blood pressure, adequacy of pulmonary ventilation, and response to care were monitored throughout the procedure. The physical status of the patient was re-assessed after the procedure. The Endoscope was introduced through the mouth, and advanced to the second part of duodenum. The upper GI endoscopy was accomplished without difficulty. The patient tolerated the procedure well. Findings: A small hiatal hernia was present. There is no endoscopic evidence of varices in the entire esophagus. Scattered moderate inflammation characterized by erythema and granularity was found in the gastric antrum. Biopsies were taken with a cold forceps for Helicobacter pylori testing. The duodenal bulb and second portion of the duodenum were normal. Impression: - Small hiatal hernia. - Gastritis. Biopsied. - Normal duodenal bulb and second portion of the duodenum. Recommendation: - Patient has a contact number available for emergencies. The signs and symptoms of potential delayed complications were discussed with the patient. Return to normal activities tomorrow. Written discharge instructions were provided to the patient. - High fiber diet and low sodium diet. - Continue present medications. - Await pathology results. - Telephone GI clinic for pathology results in 2 weeks. - Return to GI clinic in [facility] (address [address], [address], [place] [address]) in 4 -- 6 weeks. Please call GI clinic @ [phone] for apppointment date and time. Procedure Code(s): --- Professional --- 54269, Esophagogastroduodenoscopy, flexible, transoral; with biopsy, single or multiple Diagnosis Code(s): --- Professional --- K44.9, Diaphragmatic hernia without obstruction or gangrene K29.70, Gastritis, unspecified, without bleeding K74.60, Unspecified cirrhosis of liver CPT copyright 2019 [employer]. All rights reserved. The codes documented in this report are preliminary and upon wireless watcher review may be revised to meet current compliance requirements. Laith Foy MD Laith Foy MD 06/22/2020 3:30:52 PM Electronically signed by Laith Foy MD Number of Addenda: 0 Note Initiated On: 06/22/2020 2:41 PM Estimated Blood Loss: Estimated blood loss: none.
[2020-06-22 16:00] VITALS: BP 126/77
--- NOTE | 2020-06-22 16:05 | ROOR ---
Patient Name: Kevin Mcqueen Procedure Date: 06/22/2020 2:41 PM Date of : 1940 Age: 79 Room: [facility] Gender: Male Note Status: Finalized Procedure: Colonoscopy Indications: Screening for colorectal malignant neoplasm, Screening for colon cancer: Family history of colorectal cancer in distant relative(s) before age 60 Providers: Laith Foy MD Referring MD: Marivel MAYER DO Requesting Provider: Medicines: Monitored Anesthesia Care Complications: No immediate complications. Procedure: Pre-Anesthesia Assessment: - Prior to the procedure, a History and Physical was performed, and patient medications and allergies were reviewed. The patient is competent. The risks and benefits of the procedure and the sedation options and risks were discussed with the patient. All questions were answered and informed consent was obtained. Patient identification and proposed procedure were verified by the physician, the nurse and the anesthesiologist in the procedure room. Mental Status Examination: alert and oriented. Airway Examination: normal oropharyngeal airway and neck mobility. Respiratory Examination: clear to auscultation. CV Examination: normal. Prophylactic Antibiotics: The patient does not require prophylactic antibiotics. Prior Anticoagulants: The patient has taken no previous anticoagulant or antiplatelet agents. ASA Grade Assessment: II - A patient with mild systemic disease. After reviewing the risks and benefits, the patient was deemed in satisfactory condition to undergo the procedure. The anesthesia plan was to use monitored anesthesia care (MAC). Immediately prior to administration of medications, the patient was re-assessed for adequacy to receive sedatives. The heart rate, respiratory rate, oxygen saturations, blood pressure, adequacy of pulmonary ventilation, and response to care were monitored throughout the procedure. The physical status of the patient was re-assessed after the procedure. The Colonoscope was introduced through the anus and advanced to the terminal ileum, with identification of the appendiceal orifice and IC valve. The colonoscopy was performed without difficulty. The patient tolerated the procedure well. The quality of the bowel preparation was good. The terminal ileum, ileocecal valve, appendiceal orifice, and rectum were photographed. Scope insertion time was 2 minutes. Scope withdrawal time was 10 minutes. The total duration of the procedure was 12 minutes. Findings: The perianal and digital rectal examinations were normal. The terminal ileum appeared normal. Multiple small and large-mouthed diverticula were found from sigmoid to ascending colon. There was no evidence of diverticular bleeding. Non-bleeding external and internal hemorrhoids were found during retroflexion. The hemorrhoids were medium-sized. Impression: - The examined portion of the ileum was normal. - Severe diverticulosis from sigmoid to ascending colon. There was no evidence of diverticular bleeding. - Non-bleeding external and internal hemorrhoids. - No specimens collected. Recommendation: - Patient has a contact number available for emergencies. The signs and symptoms of potential delayed complications were discussed with the patient. Return to normal activities tomorrow. Written discharge instructions were provided to the patient. - High fiber diet. - Continue present medications. - Await pathology results. - Repeat colonoscopy is not recommended due to current age (66 years or older) for screening purposes. - Return to GI clinic in [facility] (address [address], [address], [place] [address]) in 4 -- 6 weeks. Please call GI clinic @ [phone] for apppointment date and time. - Use fiber, for example Citrucel, Fibercon, Konsyl or Metamucil. Procedure Code(s): --- Professional --- 25490, Colonoscopy, flexible; diagnostic, including collection of specimen(s) by brushing or washing, when performed (separate procedure) Diagnosis Code(s): --- Professional --- Z12.11, Encounter for screening for malignant neoplasm of colon Z80.0, Family history of malignant neoplasm of digestive organs K64.8, Other hemorrhoids K57.30, Diverticulosis of large intestine without perforation or abscess without bleeding CPT copyright 2019 [employer]. All rights reserved. The codes documented in this report are preliminary and upon operations manager review may be revised to meet current compliance requirements. Laith Foy MD Laith Foy MD 06/22/2020 4:05:12 PM Electronically signed by Laith Foy MD Number of Addenda: 0 Note Initiated On: 06/22/2020 2:41 PM Estimated Blood Loss: Estimated blood loss was minimal.
== END 2020-06-22 16:15 | disposition home or self-care (01) ==
LOC: M OPP 13:32
PROVIDERS: ATTEND Internal Medicine Gastroenterology
DX: Z12.11 Encounter for screening for malignant neoplasm of colon (principal); Z80.0 Family history of malignant neoplasm of digestive organs; D12.6 Benign neoplasm of colon, unspecified; K57.30 Diverticulosis of large intestine without perforation or abscess without bleeding; K64.8 Other hemorrhoids; K44.9 Diaphragmatic hernia without obstruction or gangrene; K29.40 Chronic atrophic gastritis without bleeding; K74.60 Unspecified cirrhosis of liver; E03.9 Hypothyroidism, unspecified; J44.9 Chronic obstructive pulmonary disease, unspecified; Z79.899 Other long term (current) drug therapy; Z88.0 Allergy status to penicillin; Z88.8 Allergy status to other drugs, medicaments and biological substances
CPT/HCPCS: 43239; 88305; G0105

== ENCOUNTER → 2020-07-13 | Outpatient (CLI) | payer MEDICARE, BC ==
[~2020-07-13] MED LIST changes: -NS 1,000 ML IV ONE
[2020-07-13 13:01] LABS: BASO # 0.1 10^3/uL (0.0-0.2); BASO % 1.4 % (0.0-1.0); EOS # 0.6 10^3/uL (0.0-0.5); EOS % 9.1 % (0.0-3.0); HEMATOCRIT 43.5 % (42.0-52.0); HEMOGLOBIN 14.2 g/dl (13.5-17.5); LYMPH # 1.8 10^3/uL (1.5-5.0); LYMPH % 26.9 % (24.0-44.0); MEAN CORPUSCULAR HEMOGLOBIN 32.9 pg (27.0-33.0); MEAN CORPUSCULAR HGB CONC 32.6 g/dl (32.0-36.5); MEAN CORPUSCULAR VOLUME 100.9 fl (80.0-96.0); MONO # 0.6 10^3/uL (0.0-0.8); MONO % 9.1 % (0.0-5.0); NEUTROPHILS # 3.5 10^3/uL (1.5-8.5); NEUTROPHILS % 52.9 % (36.0-66.0); PLATELET COUNT, AUTOMATED 192 10^3/uL (150-450); RED BLOOD COUNT 4.31 10^6/uL (4.30-6.10); WHITE BLOOD COUNT 6.5 10^3/uL (4.0-10.0)
[2020-07-13 13:36] LABS: CALCIUM LEVEL 9.9 MG/DL (8.8-10.2); CREATININE FOR GFR 1.3 MG/DL (0.70-1.30); FREE T4 1.17 NG/DL (0.76-1.46); GLOMERULAR FILTRATION RATE 56.7 (>42); POTASSIUM SERUM 4.5 MEQ/L (3.5-5.1); THYROID STIMULATING HORMONE 0.561 uIU/ML (0.358-3.740)
== END ==
LOC: M PLALAB 10:24
PROVIDERS: ATTEND Physician Assistant
DX: D69.6 Thrombocytopenia, unspecified (principal); N18.30 Chronic kidney disease, stage 3 unspecified; E03.9 Hypothyroidism, unspecified

== ENCOUNTER → 2020-09-22 | Outpatient (CLI) | payer MEDICARE, BC ==
[~2020-09-22] MED LIST changes: +MONT10TA10 PO; -MONT5TAB2 PO
--- NOTE | 2020-09-22 15:25 | REPPI ---
INDICATION: R53.83 OTHER FATIGUE COMPARISON: 04/15/2020 TECHNIQUE: PA and lateral. FINDINGS: The mediastinum and cardiac silhouette are normal. The lung samuel demonstrate chronic emphysematous changes and evidence for prior right upper and right lower lobe surgery. No acute consolidation, effusion, or pneumothorax. Skeletal structures demonstrate osteopenia and degenerative changes. IMPRESSION: Chronic changes. No acute cardiopulmonary process appreciated. <Electronically signed by Yassine Hadley > 09/22/20 [id number]
== END ==
LOC: M PLAIMG 14:47
PROVIDERS: ATTEND Physician Assistant
DX: J98.4 Other disorders of lung (principal); M85.80 Other specified disorders of bone density and structure, unspecified site; M19.90 Unspecified osteoarthritis, unspecified site; R53.83 Other fatigue

== ENCOUNTER → 2021-02-12 | Outpatient (CLI) | payer MEDICARE, BC ==
--- NOTE | 2021-02-12 15:44 | REP ---
INDICATION: COUGH. COMPARISON: Multiple the latest 09/22/2020 TECHNIQUE: PA and lateral FINDINGS: There are basilar fibrotic changes status quo. No acute patchy parenchymal opacities or pleural effusions have developed. The cardiomediastinal silhouette is stable. The heart is not enlarged. Chronic right upper lobe changes with a right upper lobe surgical staple line and chronic right basilar changes with a right lower lobe surgical staple line. IMPRESSION: No acute cardiopulmonary disease or significant change compared to the prior exam with findings as described above. <Electronically signed by Aly Bobo > 02/12/21 [id number]
[2021-02-12 18:21] LABS: BASO # 0.1 10^3/uL (0.0-0.2); EOS % 13.3 % (0.0-3.0); HEMATOCRIT 44.9 % (42.0-52.0); HEMOGLOBIN 14.9 g/dl (13.5-17.5); MEAN CORPUSCULAR HGB CONC 33.2 g/dl (32.0-36.5); MEAN CORPUSCULAR VOLUME 99.6 fl (80.0-96.0); MONO # 0.6 10^3/uL (0.0-0.8); MONO % 8.1 % (2.0-8.0); NEUTROPHILS % 51.2 % (36.0-66.0); PLATELET COUNT, AUTOMATED 178 10^3/uL (150-450); RED BLOOD COUNT 4.51 10^6/uL (4.30-6.10); WHITE BLOOD COUNT 7.8 10^3/uL (4.0-10.0)
[2021-02-12 18:23] LABS: ALBUMIN 3.5 GM/DL (3.2-5.2); BILIRUBIN,TOTAL 1.1 MG/DL (0.2-1.0); CALCIUM LEVEL 9.5 MG/DL (8.8-10.2); CREATININE FOR GFR 1.33 MG/DL (0.70-1.30); FREE T4 1.02 NG/DL (0.76-1.46); GLOMERULAR FILTRATION RATE 55.1 (>35); POTASSIUM SERUM 4.7 MEQ/L (3.5-5.1); THYROID STIMULATING HORMONE 1.37 uIU/ML (0.358-3.740); TOTAL PROTEIN 6.6 GM/DL (6.4-8.2)
[2021-02-15 23:07] LABS: Lyme Disease IgG Ab 18 kDa Ban Absent (.); Lyme Disease IgG Ab 23 kDa Ban Absent (.); Lyme Disease IgG Ab 28 kDa Ban Absent (.); Lyme Disease IgG Ab 30 kDa Ban Present (.); Lyme Disease IgG Ab 39 kDa Ban Absent (.); Lyme Disease IgG Ab 41 kDa Ban Present (.); Lyme Disease IgG Ab 45 kDa Ban Present (.); Lyme Disease IgG Ab 58 kDa Ban Absent (.); Lyme Disease IgG Ab 66 kDa Ban Absent (.); Lyme Disease IgG Ab 93 kDa Ban Absent (.); Lyme Disease IgG West Blot Int Negative (.); Lyme Disease IgG/IgM Antibodie 1.42 ISR (0.00-0.90); Lyme Disease IgM Ab 23 kDa Ban Absent (.); Lyme Disease IgM Ab 39 kDa Ban Absent (.); Lyme Disease IgM Ab 41 kDa Ban Absent (.); Lyme Disease IgM Ab Quantitati 0.91 index (0.00-0.79); Lyme Disease IgM West Blot Int Negative (.)
== END ==
LOC: M PLAIMG 15:06
PROVIDERS: ATTEND Physician Assistant
DX: R05 Cough (principal); R53.83 Other fatigue

== ENCOUNTER 2021-02-22 11:51 | Emergency (ER) | payer MEDICARE, BC ==
[~2021-02-22] VITALS: Ht 177.8 cm; Wt 80.6 kg
[2021-02-22 15:11] LABS: BASO # 0.1 10^3/uL (0.0-0.2); BASO % 1.2 % (0.0-1.0); EOS # 0.6 10^3/uL (0.0-0.5); EOS % 7.2 % (0.0-3.0); HEMATOCRIT 45.9 % (42.0-52.0); HEMOGLOBIN 15.6 g/dl (13.5-17.5); LYMPH # 2.5 10^3/uL (1.5-5.0); LYMPH % 31.6 % (24.0-44.0); MEAN CORPUSCULAR HEMOGLOBIN 33.6 pg (27.0-33.0); MEAN CORPUSCULAR VOLUME 98.9 fl (80.0-96.0); MONO # 0.8 10^3/uL (0.0-0.8); MONO % 9.7 % (2.0-8.0); NEUTROPHILS # 3.9 10^3/uL (1.5-8.5); NEUTROPHILS % 48.3 % (36.0-66.0); PLATELET COUNT, AUTOMATED 168 10^3/uL (150-450); RED BLOOD COUNT 4.64 10^6/uL (4.30-6.10)
[2021-02-22] MEDS ORDERED: ISOVUE-370 76% 100ML VIAL As Ordered ONE (15:18)
[2021-02-22 15:40] LABS: ALBUMIN 3.3 GM/DL (3.2-5.2); BILIRUBIN,DIRECT 0.4 MG/DL (0.0-0.2); BILIRUBIN,TOTAL 1.3 MG/DL (0.2-1.0)
--- NOTE | 2021-02-22 15:42 | REP ---
INDICATION: hematuria after a fall. COMPARISON: None. TECHNIQUE: Scans were obtained after contrast administration. FINDINGS: Fibrotic changes both lower lungs. Gallstone. Gallbladder not distended. Bile ducts not dilated. The liver shows normal size and attenuation. Pancreas, spleen, aorta and adrenal glands unremarkable.. Staghorn calculus left renal pelvis. Several small calculi lower pole right kidney. No hydronephrosis. Bladder unremarkable. IMPRESSION: Several small calculi lower pole right kidney. Staghorn calculus left kidney. 3 cm left renal cyst. <Electronically signed by Emerson Simons > 02/22/21 0433
--- NOTE | 2021-02-22 15:50 | REP ---
INDICATION: fall. COMPARISON: 02/12/2021 TECHNIQUE: PA chest and three views of the right ribs FINDINGS: PA view of the chest and three views of the right ribs were obtained. The lungs are fully expanded. Post biopsy changes noted in the right lung. Suggestion of cavity in the left upper lobe for which CT would be helpful. Heart not enlarged. No failure. Nondisplaced fracture anterior aspect 9th rib. No other fractures demonstrated IMPRESSION: Nondisplaced fracture anterior aspect right 9th rib. Subtle cavitary area in the left upper lobe should be evaluated further with chest CT. Chronic changes in both lungs. Postoperative changes right lung. <Electronically signed by Emerson Simons > 02/22/21 [id number]
[2021-02-22] MEDS ORDERED: BACT800T5 PO (16:11)
[2021-02-22] MEDS ORDERED: HYDR-4571 PO (16:11)
[2021-02-22 16:24] VITALS: BP 136/86
== END 2021-02-22 16:30 | disposition home or self-care (01) ==
LOC: M ED 11:51
DX: S22.31XA Fracture of one rib, right side, initial encounter for closed fracture (principal); R91.8 Other nonspecific abnormal finding of lung field; N39.0 Urinary tract infection, site not specified; N20.0 Calculus of kidney; N28.1 Cyst of kidney, acquired; W19.XXXA Unspecified fall, initial encounter; Y92.9 Unspecified place or not applicable; Y93.H2 Activity, gardening and landscaping; Y99.9 Unspecified external cause status; G47.33 Obstructive sleep apnea (adult) (pediatric); J44.9 Chronic obstructive pulmonary disease, unspecified; K21.9 Gastro-esophageal reflux disease without esophagitis; E03.9 Hypothyroidism, unspecified; A69.20 Lyme disease, unspecified; Z79.899 Other long term (current) drug therapy; Z88.0 Allergy status to penicillin
CPT/HCPCS: 71101; 74177; 80047; 80076; 81001; 85025; 87086; 99284; Q9967

== ENCOUNTER → 2021-02-26 | Outpatient (CLI) | payer MEDICARE, BC ==
[~2021-02-26] MED LIST changes: +BACT800T5 PO; +HYDR-4571 PO; +ISOVUE-370 76% 100ML VIAL ONE
--- NOTE | 2021-02-26 13:58 | REP ---
INDICATION: ABN FINDINGS OF LUNG HICKMAN ABN XRAY. COMPARISON: None. TECHNIQUE: Scans were obtained during contrast administration. FINDINGS: There are post biopsy changes in the right upper lobe and right lower lobe. There are several small parenchymal scars in the left lung and a 4 mm nodule in the left lower lobe. Small hiatal hernia. Gallstone. No adenopathy. IMPRESSION: 4 mm nodule left lower lobe. Post biopsy changes in the right lung. Gallstone. <Electronically signed by Emerson Simons > 02/26/21 [id number]
== END ==
LOC: M PLAIMG 13:11
PROVIDERS: ATTEND Physician Assistant
DX: R91.8 Other nonspecific abnormal finding of lung field (principal)
CPT/HCPCS: 71260; Q9967

== ENCOUNTER → 2021-03-04 | Outpatient (REF) | payer MEDICARE, BC ==
[~2021-03-04] MED LIST changes: -ISOVUE-370 76% 100ML VIAL ONE
== END ==
LOC: M SMT 18:55
PROVIDERS: ATTEND Urology
DX: Z01.818 Encounter for other preprocedural examination (principal); N20.0 Calculus of kidney; N39.0 Urinary tract infection, site not specified
CPT/HCPCS: 87086; G0463

== ENCOUNTER → 2021-03-06 | Outpatient (CLI) | payer MEDICARE, BC | LOC: M LABSMTC 11:12 | PROVIDERS: ATTEND Anesthesiology | DX: Z01.818 Encounter for other preprocedural examination (principal); Z11.52 Encounter for screening for COVID-19 ==

== ENCOUNTER 2021-03-11 11:00 | Day surgery (SDC) | payer MEDICARE, BC ==
[~2021-03-11] VITALS: Ht 177.8 cm; Wt 79.8 kg
[~2021-03-11 11:00] MED LIST changes: +LIDOCAINE 1% MDV 20ML VIAL SQ PRN; +LR 1,000 ML IV ONE; +LevoFLOXacin IV 500 MG in IV 1 EA IV ONE
[2021-03-11] MEDS ORDERED: propofoL 200 MG/20 ML VIAL As Ordered ONE ×2 (13:41→15:52)
[2021-03-11] MEDS ORDERED: LIDOCAINE 2% 100MG/5ML SDV (FOR ANES.) As Ordered ONE (13:41)
[2021-03-11] MEDS ORDERED: fentaNYL 100 MCG/2 ML INJECTION (J3010) As Ordered ONE (13:42)
[2021-03-11] MEDS ORDERED: MIDAZOLAM INJ 2MG/2ML VIAL (J2250 PER 1MG) As Ordered ONE (13:42)
[2021-03-11] MEDS ORDERED: CONRAY-60 60% 50ML VIAL (Q9961) As Ordered ONE (15:45)
[2021-03-11] MEDS ORDERED: LIDOCAINE 2% 5ML JELLY UROJET As Ordered ONE (15:54)
[2021-03-11] MEDS ORDERED: ONDANSETRON 4MG/2ML VIAL As Ordered ONE ×2 (15:55→16:49)
[2021-03-11] MEDS ORDERED: KETOROLAC 60MG 2ML VIAL As Ordered ONE ×2 (15:55→16:49)
--- NOTE | 2021-03-11 16:15 | REP ---
INDICATION: LEFT STENT PLACEMENT. COMPARISON: None. TECHNIQUE: Intraoperative fluoroscopic imaging FINDINGS: Images demonstrate [id number] hydronephrosis and satisfactory left ureteral stent placement. Total fluoroscopic time 17 seconds. IMPRESSION: Left ureteral stent placement. <Electronically signed by Yassine Hadley > 03/11/21 [id number]
[2021-03-11] MEDS ORDERED: LR 1,000 ML IV SCH (16:40)
[2021-03-11] MEDS ORDERED: ONDANSETRON 4MG/2ML VIAL IV PRN (16:40)
[2021-03-11] MEDS ORDERED: fentaNYL 100 MCG/2 ML INJECTION (J3010) IV PRN (16:40)
[2021-03-11] MEDS ORDERED: oxyCODONE 5MG TAB PO PRN (16:40)
[2021-03-11] MEDS ORDERED: KETOROLAC 30 MG/ML 1ML VIAL IV PRN (16:40)
[2021-03-11 16:45] VITALS: BP 127/71
[2021-03-11] MEDS ORDERED: dexameTHASONE 4 MG/ML 1ML VIAL (J1100 PER 1MG) As Ordered ONE (16:49)
--- NOTE | 2021-03-12 13:09 | RO ---
OPERATIVE NOTE DATE OF OPERATION: 03/11/2021 PREOPERATIVE DIAGNOSIS: Left kidney stones. POSTOPERATIVE DIAGNOSIS: Left kidney stones. PROCEDURE: Cystoscopy, left ureteral stent placement, left retrograde pyelogram with intraoperative interpreted images. SURGEON: Law Hernandez MD AMPOULE WASHING MACHINE OPERATOR: None. ANESTHESIA: MAC. OPERATIVE INDICATIONS: This is an 80-year-old male who was found to have several large left-sided kidney stones that will need to be treated with a percutaneous nephrolithotomy. He is leaving the country for approximately two weeks and therefore it was recommended that he have a left stent placed to help keep his kidney from becoming obstructed while he is gone. He is here for that procedure. DESCRIPTION OF PROCEDURE: The patient was brought to the operating room and MAC anesthesia was administered. Prophylactic antibiotics were induced. He was placed in the dorsal lithotomy position and prepped and draped in the usual sterile fashion. A rigid cystoscope was inserted in the urethral meatus and advanced into the bladder. A guidewire was advanced to the left collecting system. I then advanced a 5 [place] open-ended ureteral catheter up the left collecting system. I removed the guidewire and then shot a retrograde pyelogram. It is notable for a mild left hydronephrosis with extravasation. I then advanced the guidewire back up the left collecting system and removed the ureteral catheter. I utilized the guidewire to advance a 7 Maldivian x 22-32 cm JJ ureteral stent up the left collecting system. The wire was removed and there were adequate curls of the stent in the left renal pelvis and in the bladder. The bladder was then emptied of all fluid and this marked the conclusion of the procedure. The patient was taken out of dorsal lithotomy position, awakened from anesthesia and transported to the recovery room in stable condition. ESTIMATED BLOOD LOSS: 5 mL COMPLICATIONS: None. SPECIMENS: None. PLAN: The patient will be leaving the country this weekend and will be back in about two to three weeks. Once he is back, we will see him back in the office to get him set up for a left-sided percutaneous nephrolithotomy. LLOYD
== END 2021-03-11 17:20 | disposition home or self-care (01) ==
LOC: M SDC 11:00
PROVIDERS: ATTEND Urology
DX: N13.2 Hydronephrosis with renal and ureteral calculous obstruction (principal); G47.33 Obstructive sleep apnea (adult) (pediatric); K21.9 Gastro-esophageal reflux disease without esophagitis; Z79.51 Long term (current) use of inhaled steroids; Z79.899 Other long term (current) drug therapy
CPT/HCPCS: 52332; 74420; C1769; C2617; J1100; J1885; J1956; J2250; J2405; J3010; Q9961

== ENCOUNTER → 2021-04-30 | Outpatient (CLI) | payer MEDICARE, BC ==
[~2021-04-30] MED LIST changes: -LIDOCAINE 1% MDV 20ML VIAL SQ PRN; -LR 1,000 ML IV ONE; -LevoFLOXacin IV 500 MG in IV 1 EA IV ONE
--- NOTE | 2021-04-30 13:13 | REP ---
INDICATION: KIDNEY STONES, FLANK PAIN COMPARISON: 02/22/2021 TECHNIQUE: Axial noncontrast images from the lung bases to the pubic symphysis with coronal and sagittal reformations. This CT examination was performed using the following dose reduction techniques: Automated exposure control, adjustment of mA and/or kv according to the patient's size, and use of iterative reconstruction technique. FINDINGS: Left kidney includes multiple large calculi in the renal pelvis measuring up to approximately 14 mm along with ureteral stent in satisfactory position and mild/moderate residual hydroureteronephrosis with perinephric and periureteral stranding. Stable lower pole left renal cyst is also noted. Right kidney demonstrates acute hydronephrosis with 9 mm obstructing calculus at the ureteropelvic junction as well as 11 mm nonobstructing intrarenal calculus with mild perinephric stranding. Liver, spleen, pancreas, and bilateral adrenal glands are relatively normal/stable by noncontrast evaluation. Cholelithiasis noted. The enteric system is without obstruction or definite acute inflammatory process. Diffuse colonic and sigmoid diverticulosis noted. Pelvis demonstrates presumed chronic bladder wall thickening and prostatomegaly. No ascites. No free air. No adenopathy. Atherosclerotic changes to the aorta noted without aneurysm. Musculoskeletal structures demonstrate degenerative changes without obvious acute osseous abnormality. Lung bases demonstrate stable chronic changes. IMPRESSION: 1. Right kidney demonstrates acute obstructive uropathy with 9 mm calculus at the ureteropelvic junction and 11 mm nonobstructing intrarenal calculus. 2. Left kidney includes ureteral stent in satisfactory position along with multiple large nonobstructing renal calculi and residual mild/moderate hydroureteronephrosis. 3. Further chronic nonacute findings as described above remaining stable. <Electronically signed by Yassine Hadley > 04/30/21 [id number]
== END ==
LOC: M RAD 12:44
PROVIDERS: ATTEND Urology
DX: N20.0 Calculus of kidney (principal)

== ENCOUNTER → 2021-05-04 | Outpatient (POV) | payer MEDICARE ==
[~2021-05-04] VITALS: Ht 177.8 cm; Wt 84.0 kg
[2021-05-04 10:20] VITALS: BP 123/69
--- NOTE | 2021-05-06 11:09 | IRCOV ---
[facility] IR Consult Office Visit IR Consult Office Visit DATE: May 04, 2021 REASON FOR CONSULTATION/CHIEF COMPLAINT: Kidney stones. HISTORY OF PRESENT ILLNESS: 80-year-old male with history of numerous bladder stones, and left kidney stones, previously treated 15 years ago and 2 years ago at the [facility]. He reports he went into urinary obstruction due to stones in the bladder. These were blasted and washed out via cystoscopy. He has never had any percutaneous interventions on his kidneys. He has never had percutaneous nephrolithotripsy. All stone procedures have previously been performed by cystoscopy and ureteroscopy. He is referred for left percutaneous nephroureteral access for left-sided PCNL. He recently underwent cystoscopy and left ureteral stent placement on 03/11/2021. He denies any fevers or chills. He denies any pain. He is tolerating the stent well. He does describe some hematuria. His left stent is still in place. ALLERGIES: Please see below. HOME MEDICATIONS: Please see below. PAST MEDICAL HISTORY: Acid reflux Erectile dysfunction Bladder stones Lyme disease Sleep apnea Kidney stones PAST SURGICAL HISTORY: Lung biopsy Cystoscopies Left ureteral stent 03/11/2021 FAMILY HISTORY: Noncontributory. SOCIAL HISTORY: Ex-smoker. Quit in 1986. Occasional alcohol. Denies drugs. REVIEW OF SYSTEMS: Otherwise negative. PHYSICAL EXAMINATION: VITAL SIGNS: Please see below. GENERAL APPEARANCE: Appears well. Comfortable at rest. HEENT: No scleral icterus. RESPIRATORY: Normal breathing at rest. CARDIOVASCULAR: Normal rate. ABDOMEN: No flank tenderness. EXTREMITIES: Moving all 4 extremities. NEUROLOGICAL: Alert and oriented. PSYCHIATRIC: Appropriate to circumstance. LABORATORY DATA: 05/05/2021 hemoglobin 14.4 hematocrit 42.6 WBC 6.7 platelets 161. Sodium 142 potassium 4.7 BUN 26 creatinine 1.48 GFR 48.7 INR 1.12 Imaging: I personally reviewed the CT abdomen pelvis without contrast performed 04/30/2021. There is a large stone burden in the left kidney. Mild left-sided hydronephrosis. Left ureteral stent in place. 2 cm cystic lesion arising exophytically of the upper pole of the left kidney measures 9 Hounsfield units, most likely a cyst. ASSESSMENT/PLAN: 80-year-old male with large left kidney stone requires access for PCNL. I discussed the risks and benefits of the procedure and patient is agreeable to proceed. We will schedule the patient for left nephroureteral catheter placement for PCNL. I spent 30 minutes in reviewing patient's records, imaging and consultation with the patient. Thank you for this referral. CC Dr. Law Hernandez Allergies Coded Allergies: amoxicillin (Verified Adverse Reaction, Intermediate, jaundice, SCLERA ORANGE, URINE ORANGE, 03/10/21) clavulanic acid (Verified Adverse Reaction, Intermediate, jaundice, SCLERA ORANGE, URINE ORANGE, 03/10/21) Home Medications Scheduled Dexlansoprazole (Dexilant), 60 MG PO DAILY, (Reported) Folic Acid (Folic Acid), 1 MG PO DAILY Latanoprost (Xalatan), 1 DROP OU QHS, (Reported) Magnesium Oxide (Magnesium), 500 MG PO QAM, (Reported) Polyethylene Glycol 3350 (Miralax), 1 DOSE PO DAILY, (Reported) Thyroid ([place] Thyroid), 60 MG PO QAM, (Reported) Scheduled PRN Albuterol Sulfate (Ventolin Hfa), 2 PUFF INH Q4H PRN for SOB/WHEEZING, (Reported) Ipratropium [place] (Ipratropium [place]), 2 SPRAYS INH BID PRN for CONGESTION, (Reported) VS, I&O, 24H, Fishbone Vital Signs/I&O Vital Signs Date Time Temp Pulse Resp B/P (MAP) Pulse Ox O2 Delivery O2 Flow Rate FiO2 05/04/21 10:20 98.5 84 20 123/69 (87) 99 Room Air LEOPOLDO AMBROSE MD May 06, 2021 11:09
== END ==
LOC: M IRPOV 10:05
PROVIDERS: ATTEND Radiology Diagnostic Radiology
DX: N20.0 Calculus of kidney (principal); Z88.1 Allergy status to other antibiotic agents; Z88.8 Allergy status to other drugs, medicaments and biological substances; Z79.899 Other long term (current) drug therapy

== ENCOUNTER → 2021-05-05 | Outpatient (CLI) | payer MEDICARE ==
[2021-05-05 13:11] LABS: BASO # 0.1 10^3/uL (0.0-0.2); BASO % 0.9 % (0.0-1.0); EOS # 0.5 10^3/uL (0.0-0.5); HEMATOCRIT 42.6 % (42.0-52.0); HEMOGLOBIN 14.4 g/dl (13.5-17.5); LYMPH # 2.2 10^3/uL (1.5-5.0); MEAN CORPUSCULAR HEMOGLOBIN 33.4 pg (27.0-33.0); MEAN CORPUSCULAR HGB CONC 33.8 g/dl (32.0-36.5); MEAN CORPUSCULAR VOLUME 98.8 fl (80.0-96.0); MONO # 0.7 10^3/uL (0.0-0.8); MONO % 9.9 % (2.0-8.0); NEUTROPHILS # 3.3 10^3/uL (1.5-8.5); NEUTROPHILS % 48.8 % (36.0-66.0); PLATELET COUNT, AUTOMATED 161 10^3/uL (150-450); RED BLOOD COUNT 4.31 10^6/uL (4.30-6.10); WHITE BLOOD COUNT 6.7 10^3/uL (4.0-10.0)
[2021-05-05 13:19] LABS: INR 1.12; PROTHROMBIN TIME 14.8 SECONDS (12.7-14.5)
[2021-05-05 13:20] LABS: PARTIAL THROMBOPLASTIN TIME 32.7 SECONDS (25.9-37.0)
[2021-05-05 13:30] LABS: CREATININE FOR GFR 1.48 MG/DL (0.70-1.30); GLOMERULAR FILTRATION RATE 48.7 (>35); POTASSIUM SERUM 4.7 MEQ/L (3.5-5.1)
== END ==
LOC: M PLALAB 10:26
PROVIDERS: ATTEND Family Medicine
DX: Z01.812 Encounter for preprocedural laboratory examination (principal); N20.0 Calculus of kidney

== ENCOUNTER → 2021-05-10 | Outpatient (CLI) | payer MEDICARE | LOC: M LABSMTC 12:02 | PROVIDERS: ATTEND Anesthesiology | DX: Z01.818 Encounter for other preprocedural examination (principal); Z11.52 Encounter for screening for COVID-19 ==

== ENCOUNTER → 2021-05-10 | Outpatient (CLI) | payer MEDICARE ==
[~2021-05-10] MED LIST changes: +CIPROFLOXACIN 400 MG in IV 1 EA IV ONE; +CIPROFLOXACIN/D5W 400 MG/200 ML BAG (J0744) As Ordered ONE; +ISOVUE-300 61% 50ML VIAL As Ordered ONE; +LIDOCAINE 1% MDV 20ML VIAL As Ordered ONE; +MIDAZOLAM INJ 2MG/2ML VIAL (J2250 PER 1MG) As Ordered ONE; +NS 1,000 ML IV SCH; +PERCOCET 5MG/325MG TAB As Ordered ONE; +PERCOCET 5MG/325MG TAB PO PRN; +PROMETHAZINE INJ 25 MG/ML VIAL (J2550) As Ordered ONE; +diphenhydrAMINE 50MG/ML VIAL (J1200) As Ordered ONE; +fentaNYL 100 MCG/2 ML INJECTION (J3010) As Ordered ONE
--- NOTE | 2021-05-10 13:47 | IRHP ---
[facility] IR Pre-Procedure H & P General Date of Service: May 10, 2021 Procedure: Same Day Surgery Interval History and Physical I have seen the patient and reviewed last H & P performed within 30 days. There is no significant interval change. History of Present Illness Chief Complaint The patient is a 80-year-old male admitted with a reason for visit of Kidney Stone. PRE-PROCEDURE DIAGNOSIS: Left kidney stone HEART: Normal rate. LUNGS: Normal breathing at rest. ASA Classification ASA Classification: III-Severe systemic dis. Mallampati Score: II NPO: Yes Problems with prior sedation: No Obstructive Sleep Apnea: No Plan moderate sedation Allergies Coded Allergies: amoxicillin (Verified Adverse Reaction, Intermediate, jaundice, SCLERA ORANGE, URINE ORANGE, 05/07/21) clavulanic acid (Verified Adverse Reaction, Intermediate, jaundice, SCLERA ORANGE, URINE ORANGE, 05/07/21) Home Medications Scheduled Dexlansoprazole (Dexilant), 60 MG PO DAILY, (Reported) Folic Acid (Folic Acid), 1 MG PO DAILY Latanoprost (Xalatan), 1 DROP OU QHS, (Reported) Magnesium Oxide (Magnesium), 500 MG PO QAM, (Reported) Polyethylene Glycol 3350 (Miralax), 1 DOSE PO DAILY, (Reported) Thyroid ([place] Thyroid), 60 MG PO QAM, (Reported) Scheduled PRN Albuterol Sulfate (Ventolin Hfa), 2 PUFF INH Q4H PRN for SOB/WHEEZING, (Reported) Ipratropium [place] (Ipratropium [place]), 2 SPRAYS INH BID PRN for CONGESTION, (Reported) VS, I&O, 24H, Fishbone Vital Signs/I&O Vital Signs Date Time Temp Pulse Resp B/P (MAP) Pulse Ox O2 Delivery O2 Flow Rate FiO2 05/10/21 12:30 97.9 89 18 98 Room Air LEOPOLDO AMBROSE MD May 10, 2021 13:47
[2021-05-10 16:35] VITALS: BP 119/61
--- NOTE | 2021-05-13 13:11 | IRPON ---
IR Postoperative Note Date Of Procedure: May 10, 2021 Time Of Procedure: 16:00 IR Postoperative Note Percutaneous nephroureteral catheter placement using fluoroscopic and ultrasound guidance. Nephrostogram and Ureterogram Clinical Information:Left kidney stone. Needs antegrade PCNL access. Physician: Dr. Raymundo. Procedure: The patient was advised of the benefits, risks, and alternatives of the procedure and informed consent was obtained. A time out was performed with verification of the patient's name, MRN, site of procedure, and type of procedure to be performed. The patient was positioned in the prone position on the angiographic table. The site was prepped and draped in the usual sterile fashion. Moderate sedation was performed by the physician including the presence of an independent trained RN who assisted in monitoring the patient's level of consciousness and physiological status. Following the administration of fentanyl and Versed, the physician spent 60 minutes of continuous [id number] time with the patient. A hand thermal cutter radiograph reveals left kidney stones and left ureteral stent. The anticipated puncture site on the flank was anesthetized with lidocaine. Using fluoroscopy guidance, the lower pole calculus was accessed with a 21-gauge Chiba needle. A nephrostogram was performed which demonstrates minimal hydronephrosis. A [place] wire was then advanced through the Chiba needle and used under fluoroscopy guidance, to manipulate around the stone, out of the lower pole calyx, into the renal pelvis and down the ureter. The needle was then exchanged for a nonvascular introducer set. Injection of contrast confirmed intraureteral location. An Amplatz wire was then advanced into the ureter, down the ureter and into the bladder, under fluoroscopy guidance. A 6 [place] Seid[place] Catheter was then advanced over the wire, through the renal collecting system, down the ureter into the bladder. The distal pigtail was formed. A final nephrostogram and ureterogram were performed confirming positioning of the catheter in the renal collecting system, ureter and bladder. No ureteral extravasation. The catheter was sutured in position with 2-0 Prolene and a sterile dressing applied. The patient tolerated the procedure well and was returned to the PRU in stable condition. EBL: < 5 mL. Complications:None. Conclusion: 1. Nephrostogram and Ureterogram demonstratemultiple stones in the left kidney. 2. Successful left-sided antegrade nephroureteral access for PCNL. Patient to follow-up with urology for PCNL. Thank you for this referral. CC LEOPOLDO Yeboah MD May 13, 2021 13:11
== END ==
LOC: M IRPRO 12:26
PROVIDERS: ATTEND Radiology Diagnostic Radiology
DX: N20.0 Calculus of kidney (principal); Z79.899 Other long term (current) drug therapy; Z88.1 Allergy status to other antibiotic agents; Z88.8 Allergy status to other drugs, medicaments and biological substances; Z96.0 Presence of urogenital implants
CPT/HCPCS: 50433; 96374; 99152; 99153; C1758; C1769; C1894; J0744; J1200; J2250; J3010; Q9967

== ENCOUNTER 2021-05-13 07:30 | Inpatient (IN) | payer MEDICARE, BC ==
[~2021-05-13] VITALS: Ht 177.8 cm; Wt 78.2 kg
[~2021-05-13 07:30] MED LIST changes: -CIPROFLOXACIN 400 MG in IV 1 EA IV ONE; -CIPROFLOXACIN/D5W 400 MG/200 ML BAG (J0744) As Ordered ONE; -ISOVUE-300 61% 50ML VIAL As Ordered ONE; -LIDOCAINE 1% MDV 20ML VIAL As Ordered ONE; +LR 1,000 ML IV ONE; -MIDAZOLAM INJ 2MG/2ML VIAL (J2250 PER 1MG) As Ordered ONE; -NS 1,000 ML IV SCH; -PERCOCET 5MG/325MG TAB As Ordered ONE; -PERCOCET 5MG/325MG TAB PO PRN; -PROMETHAZINE INJ 25 MG/ML VIAL (J2550) As Ordered ONE; -diphenhydrAMINE 50MG/ML VIAL (J1200) As Ordered ONE; -fentaNYL 100 MCG/2 ML INJECTION (J3010) As Ordered ONE
[2021-05-13] MEDS ORDERED: SUGAMMADEX SODIUM 500 MG/5 ML VIAL (BRIDION) As Ordered ONE (08:26)
[2021-05-13] MEDS ORDERED: propofoL 200 MG/20 ML VIAL As Ordered ONE (08:26)
[2021-05-13] MEDS ORDERED: ROCURONIUM BROMIDE 50 MG/5 ML VIAL As Ordered ONE ×2 (08:26→12:23)
[2021-05-13] MEDS ORDERED: LIDOCAINE 2% 100MG/5ML SDV (FOR ANES.) As Ordered ONE (08:26)
[2021-05-13] MEDS ORDERED: dexameTHASONE 4 MG/ML 1ML VIAL (J1100 PER 1MG) As Ordered ONE (08:26)
[2021-05-13] MEDS ORDERED: KETOROLAC 60MG 2ML VIAL As Ordered ONE (08:26)
[2021-05-13] MEDS ORDERED: ACETAMINOPHEN 1000MG 100ML IV BTL (OFIRMEV) (J0131 PER 10MG) As Ordered ONE (08:26)
[2021-05-13] MEDS ORDERED: ONDANSETRON 4MG/2ML VIAL As Ordered ONE (08:26)
[2021-05-13] MEDS ORDERED: fentaNYL 100 MCG/2 ML INJECTION (J3010) As Ordered ONE ×3 (08:26→15:42)
[2021-05-13] MEDS ORDERED: MIDAZOLAM INJ 2MG/2ML VIAL (J2250 PER 1MG) As Ordered ONE (08:27)
[2021-05-13] MEDS ORDERED: ceFAZolin 2 GM/D5W 50 ML IV BAG (J0690 PER 500MG) As Ordered ONE (10:34)
[2021-05-13] MEDS ORDERED: ceFAZolin SOD 2 GM in IV 1 EA IV ONE (10:45)
[2021-05-13] MEDS ORDERED: ACETAMINOPHEN TAB 650MG DOSE (2X325MG) PO PRN (10:55)
[2021-05-13] MEDS ORDERED: NS 1,000 ML IV SCH (10:55)
[2021-05-13] MEDS ORDERED: ALBUTEROL 90 MCG/ACT 8GM HFA INHALER INH PRN (10:55)
[2021-05-13] MEDS ORDERED: ONDANSETRON 4MG/2ML VIAL IV PRN ×2 (10:55→15:45)
[2021-05-13] MEDS ORDERED: PERCOCET 5MG/325MG TAB PO PRN ×2 (10:55)
[2021-05-13] MEDS ORDERED: IPRATROPIUM HFA INHALER 12.9 GRAMS (ATROVENT HFA) INH PRN (10:55)
[2021-05-13] MEDS ORDERED: CONRAY-60 60% 50ML VIAL (Q9961) As Ordered ONE (11:02)
[2021-05-13] MEDS ORDERED: PHENYLephrine 500MCG 5ML (100MCG/ML) SYRINGE As Ordered ONE ×2 (11:53→14:42)
[2021-05-13] MEDS: fentaNYL 100 MCG/2 ML INJECTION (J3010) IV PRN ×2 (15:44→15:50)
[2021-05-13] MEDS ORDERED: oxyCODONE 5MG TAB PO PRN (15:45)
[2021-05-13] MEDS ORDERED: METOCLOPRAMIDE INJ 10MG/2ML VIAL (J2765 PER 1) IV PRN (15:45)
[2021-05-13] MEDS ORDERED: LR 1,000 ML IV SCH (15:45)
--- NOTE | 2021-05-13 15:48 | ROOPDOC ---
[facility] Report Of Operation Report of Operation DATE OF PROCEDURE: 05/13/21 PREPROCEDURE DIAGNOSIS: Kidney Stones. POSTPROCEDURE DIAGNOSIS: Kidney Stones. PROCEDURE: Left percutaneous nephrolithotomy, left antegrade nephrostogram with intraoperative interpretation of images, left ureteral stent exchange, cystoscopy, right ureteroscopy with laser lithotripsy and basket extraction of stones, right retrograde pyelogram with intraoperative interpretation of images, right ureteral stent placement. SURGEON: Dr. Nick Balderrama BARK PRESS OPERATOR: None ANESTHESIA: General. OPERATIVE INDICATIONS: This is an 80 year-old male with bilateral kidney stones with a 9mm and an 11mm stone in the right kidney and multiple large left sided kidney stones each measuring approximately 15mm in size. It was recommended that he undergo the above procedures for treatment. DESCRIPTION OF PROCEDURE: The patient was brought to the operating room, and general anesthesia was induced. Prophylactic antibiotics were infused. The patient was then placed in the dorsal lithotomy position and prepped and draped in the usual sterile fashion. A rigid cystoscope was inserted in the urethral meatus and advanced into the bladder. Once inside the bladder a guidewire was advanced up the right collecting system. A ureteral access sheath was advanced up the right collecting system. I then went up the access sheath with a flexible ureteroscope. The right kidney was thoroughly examined and both right sided kidney stones were seen. They were then fragmented into smaller pieces using a 272 micron laser fiber. All of the fragments were then removed using a basket. Once satisfied that all of the fragments were removed, a retrograde pyelogram was performed. It was notable for mild to moderate right hydronephrosis with no extravasation. I then withdrew the ureteroscope along with the access sheath. No additional stones were seen inside the ureter. The guidewire was then utilized to advance a 6Fr [id number] JJ ureteral stent up the right collecting system. The wire was removed and there were adequate curls of the stent in the right renal pelvis and in the bladder. The previously placed left ureteral stent was then removed. Of note, it had a lot of calcifications on it. Next a 20Fr coude catheter was placed into the bladder and the balloon was filled with sterile water. The catheter was connected to a drainage bag. This marked the conclusion of this portion of the procedure. The patient was then repositioned in the prone position in preparation for a left-sided percutaneous nephrolithotomy. The patient was then prepped and draped in the usual sterile fashion. At this point, the previously-placed left nephroureteral catheter was utilized to advance a Amplatz Super Stiff wire down the left collecting system and into the bladder. The nephroureteral catheter was then removed, leaving the wire in place. Next, a 2-3 cm transverse incision was made adjacent to the wire. A dual-lumen ureteral catheter was then advanced down into the left renal pelvis. The large left sided stones were easily seen on fluoroscopy. An antegrade nephrostogram was performed and was negative for extravasation. A Motion guidewire was then advanced down the left collecting system and into the bladder. The dual-lumen ureteral catheter was then removed, leaving both wires in place. The Motion wir e was then secured to the drape to serve as a safety wire. Next, over the Super Stiff wire, a balloon dilator was advanced into the left renal pelvis. The balloon was then inflated and left in place for a few seconds. Next, an access sheath was advanced over the balloon into the left renal pelvis. The balloon was then let down and removed, leaving the access sheath and the wire in place. At this point, a nephroscope was introduced into the left kidney. The larger stones were then fragmented into several pieces and suctioned out using the ShockPulse. The smaller stones were removed using a Perc NCircle basket. Once done it appeared that all of the stones were removed. The nephroscope was then removed, and a #7-[place] x 22-32 cm double J ureteral stent was advanced down into the left collecting system over the wire. The Super Stiff wire was then removed, and there were adequate curls of the stent in the left kidney and in the bladder. At this point, the access sheath was removed, and the Motion wire was utilized to advance a #18-[place] tip catheter down into the left collecting system. After the tip was within the renal pelvis, the balloon was inflated with about 3 mL of contrast. The [place] tip catheter was also utilized to shoot an antegrade nephrostogram, and this was negative for extravasation. We then secured the [place] tip catheter to the skin with a #2-0 silk suture. This was then connected to gravity drainage and marked the conclusion of the procedure. The patient was placed back in supine position, awakened from anesthesia, and transported to the recovery room in stable condition. ESTIMATED BLOOD LOSS: approximately 100 mL COMPLICATIONS: None. SPECIMENS: Left kidney stone fragments, right kidney stone fragments. PLAN: The patient will be admitted to the hospital postoperatively. I will likely remove his left nephrostomy catheter tomorrow. He will be discharged home with the plan to remove his stent in 3-4 weeks. We will get imaging prior to doing this. NICK BALDERRAMA MD May 13, 2021 11:17
[2021-05-13 15:51] LABS: HEMATOCRIT 40.5 % (42.0-52.0); HEMOGLOBIN 13.7 g/dl (13.5-17.5); MEAN CORPUSCULAR HEMOGLOBIN 33.9 pg (27.0-33.0); MEAN CORPUSCULAR HGB CONC 33.8 g/dl (32.0-36.5); MEAN CORPUSCULAR VOLUME 100.2 fl (80.0-96.0); PLATELET COUNT, AUTOMATED 155 10^3/uL (150-450); RED BLOOD COUNT 4.04 10^6/uL (4.30-6.10); WHITE BLOOD COUNT 6.2 10^3/uL (4.0-10.0)
[2021-05-13 16:06] LABS: CALCIUM LEVEL 9.5 MG/DL (8.8-10.2); CREATININE FOR GFR 1.48 MG/DL (0.70-1.30); GLOMERULAR FILTRATION RATE 48.7 (>35); POTASSIUM SERUM 4.6 MEQ/L (3.5-5.1)
[2021-05-13 16:30] VITALS: BP 117/72
[2021-05-13 17:00] VITALS: BP 119/73
[2021-05-13 17:30] VITALS: BP 119/73
[2021-05-13] MEDS: ceFAZolin SOD 1 GM in D5W MINI-BAG PLUS 50 ML IV SCH (18:03)
[2021-05-13 18:30] VITALS: BP 118/72
[2021-05-13 19:30] VITALS: BP 118/71
[2021-05-13] MEDS: DOCUSATE SODIUM 100MG CAPSULE PO SCH (20:57)
[2021-05-13 21:00] VITALS: BP 117/73
[2021-05-13] MEDS ORDERED: LATANOPROST 0.005% OPHTH SOLN 2.5 ML OU SCH (21:00)
[2021-05-13] MEDS ORDERED: MAALOX 30 ML SUSP *UDC PO PRN (22:20)
[2021-05-14 02:38] VITALS: BP 104/60
[2021-05-14] MEDS: ceFAZolin SOD 1 GM in D5W MINI-BAG PLUS 50 ML IV SCH (03:25)
[2021-05-14 06:18] VITALS: BP 105/58
[2021-05-14 06:56] LABS: HEMATOCRIT 37.8 % (42.0-52.0); HEMOGLOBIN 13.2 g/dl (13.5-17.5); MEAN CORPUSCULAR HGB CONC 34.9 g/dl (32.0-36.5); MEAN CORPUSCULAR VOLUME 97.4 fl (80.0-96.0); PLATELET COUNT, AUTOMATED 168 10^3/uL (150-450); RED BLOOD COUNT 3.88 10^6/uL (4.30-6.10); WHITE BLOOD COUNT 10.3 10^3/uL (4.0-10.0)
[2021-05-14] MEDS ORDERED: THYROID 30 MG TAB PO SCH (07:00)
[2021-05-14 07:16] LABS: CREATININE FOR GFR 1.27 MG/DL (0.70-1.30); GLOMERULAR FILTRATION RATE 58.1 (>35); POTASSIUM SERUM 4.5 MEQ/L (3.5-5.1)
[2021-05-14] MEDS: DOCUSATE SODIUM 100MG CAPSULE PO SCH (08:15)
[2021-05-14] MEDS ORDERED: FLUBLOK(EGG FREE)(QUAD)INFLUENZA VACC 0.5ML SYRINGE 18YRS & OLDER IM ONE (09:00)
[2021-05-14] MEDS ORDERED: PREVNAR 13 VACCINE SYRINGE IM ONE (09:00)
--- NOTE | 2021-05-14 09:53 | IPNPDOC ---
Subjective Review oF Systems Chief Complaint The patient is a 80-year-old male admitted with a reason for visit of Nephrolithiasis. Events since Last Encounter No acute events o/n. Good pain control. No n/v. No f/c/ns. Has not ambulated yet. Objective Physical Examination General Exam: Alert, Cooperative, No Acute Distress ABDOMEN EXAM: Soft Skin Exam: Nl turgor and temperature Neuro Exam: Normal Speech Psych Exam: Mental status NL, Mood NL Other physical findings L neph catheter draining pink urine; Sheridan catheter draining pink urine Vital Signs/I&O Vital Signs Date Time Temp Pulse Resp B/P (MAP) Pulse Ox O2 Delivery O2 Flow Rate FiO2 05/14/21 09:15 18 Room Air 05/14/21 06:18 97.7 71 105/58 (74) 96 2.0 I&O- Last 24 Hours up to 6 AM 05/14/21 06:00 Intake Total 2570 ml Output Total 1835 ml Balance 735 ml Laboratory Data Labs 24H Laboratory Tests 2 05/13/21 12:15: 05/13/21 13:51: 05/13/21 15:36: Nucleated Red Blood Cells % (auto) 0.0, Anion Gap 6L, Glomerular Filtration Rate 48.7, Calcium Level 9.5 05/14/21 06:29: Nucleated Red Blood Cells % (auto) 0.0, Anion Gap 6L, Glomerular Filtration Rate 58.1, Calcium Level 9.0 CBC/BMP Laboratory Tests 05/13/21 15:36 05/14/21 06:29 Assessment/Plan Date Seen The patient was seen on 05/14/21. Patient Summary This is an 80 y/o M POD1 s/p L PCNL, R ureteroscopy w/ laser lithotripsy and basket extraction of stones, b/l stent placement. Hb stable at 13.2. Cr 1.27. Good UOP from L neph catheter and Sheridan catheter. Plan/VTE VTE Prophylaxis Ordered?: Yes VTE Exclusion Mechanical Proph: N/A:VTE Prophy Ordered Plan - L neph catheter removed - d/c Sheridan - percocet prn pain - d/c IVF - strict I/Os - SCDs in bed - ambulate - advance diet as tolerated - likely discharge home later today if pain is controlled and patient has no difficulty voiding NICK BALDERRAMA MD May 14, 2021 09:53
[2021-05-14 10:00] VITALS: BP 110/58
[2021-05-14 14:00] VITALS: BP 103/59
--- NOTE | 2021-05-14 16:45 | DSES ---
DISCHARGE SUMMARY DATE OF ADMISSION: 05/13/2021 DATE OF DISCHARGE: 05/14/2021 ADMISSION DIAGNOSIS: Kidney stones. DISCHARGE DIAGNOSIS: Kidney stones. ADMITTING PHYSICIAN: Dr. Law Hernandez DISCHARGING PHYSICIAN: Dr. Law Hernandez PROCEDURES PERFORMED: Left percutaneous nephrolithotomy, right ureteroscopy with laser lithotripsy and basket extraction of stones, right ureteral stent placement, left ureteral stent exchange on 05/13/2021. HISTORY OF PRESENT ILLNESS: This is an 80-year-old male who was found to have multiple large left-sided kidney stones, each measuring around 15 mm in size, as well as two right-sided kidney stones, measuring up to 1 cm in size with one of the stones intermittently obstructing the right kidney. It was recommended he undergo treatment for both kidneys. He therefore underwent the above-listed procedures for treatment and was admitted postoperatively. HOSPITALIZATION COURSE: The patient was admitted to the hospital after undergoing the above-listed procedures. His postoperative course was unremarkable. On postoperative day #1 all of his labs were within acceptable limits. Specifically, his hemoglobin level was stable at 13.2, and his serum creatinine remained stable at 1.27. He had good urine output from both his Sheridan catheter and his left nephrostomy catheter. The morning of postoperative day #1 his left nephrostomy catheter was removed. Subsequently his Sheridan catheter was removed. He did have a little trouble voiding. He ultimately voided 125 mL in the afternoon and had a postvoid residual of around 300 mL. Per the patient, this is around his baseline from when he has been followed by previous urologists. He had no discomfort with that amount in his bladder. His diet was advanced on postoperative day #1, and he tolerated a regular diet without nausea and vomiting. He started ambulating and ambulated well. His pain was well controlled with oral pain medication. By the afternoon of postoperative day #1 he was deemed ready for discharge home. He was advised that if he did have difficulty emptying his bladder that he should contact urology office or go to the emergency room. He was discharged home with plan for him to followup in urology clinic in a few weeks for removal of his ureteral stents. LLOYD
--- NOTE | 2021-05-16 08:40 | REP ---
INDICATION: LEFT PERCUTANEOUS, RIGHT CYSTO, RIGHT URETEROSCOPY. COMPARISON: None. TECHNIQUE: Tense fluoroscopic spot views were obtained during the procedure. 2 minutes and 11 seconds of fluoroscopy time was provided Dr. Hernandez for the procedure. FINDINGS: Examination has been submitted to the Department of Radiology for review. IMPRESSION: As above. <Electronically signed by Aly Bobo > 05/16/21 [id number]
[2021-05-19 13:07] LABS: CA Hydro Phos 80 % (.); CA Oxalate Dihy 20 % (.); Size 4x4 mm (.)
[2021-05-19 14:09] LABS: CA Hydro Phos 90 % (.); CA Oxalate Dihy 10 % (.); Size 12x11 mm (.)
== END 2021-05-14 16:39 | disposition home or self-care (01) | DRG 661 ==
LOC: M OR 09:29 → M MSPAV 16:25
PROVIDERS: ADMIT Urology; ATTEND Urology
PROC: 0TC08ZZ Extirpation of Matter from Right Kidney, Via Natural or Artificial Opening Endoscopic (ICD-10-PCS; 2021-05-13)
PROC: 0TC13ZZ Extirpation of Matter from Left Kidney, Percutaneous Approach (ICD-10-PCS; principal; 2021-05-13 10:35)
PROC: 0T788DZ Dilation of Bilateral Ureters with Intraluminal Device, Via Natural or Artificial Opening Endoscopic (ICD-10-PCS; 2021-05-13 10:35)
DX: N13.2 Hydronephrosis with renal and ureteral calculous obstruction (principal); E78.00 Pure hypercholesterolemia, unspecified; G47.33 Obstructive sleep apnea (adult) (pediatric); E03.9 Hypothyroidism, unspecified; K21.9 Gastro-esophageal reflux disease without esophagitis; N18.30 Chronic kidney disease, stage 3 unspecified; M19.91 Primary osteoarthritis, unspecified site; J45.909 Unspecified asthma, uncomplicated; Z88.0 Allergy status to penicillin; Z87.891 Personal history of nicotine dependence; Z79.899 Other long term (current) drug therapy

== ENCOUNTER → 2021-05-25 | Outpatient (POV) | payer MEDICARE ==
[~2021-05-25] VITALS: Ht 177.8 cm; Wt 79.5 kg
[~2021-05-25] MED LIST changes: -LR 1,000 ML IV ONE
[2021-05-25 09:05] VITALS: BP 136/72
--- NOTE | 2021-05-27 12:32 | IRPN ---
[facility] IR Progress Note IR Progress Note DATE: May 25, 2021 FOLLOW-UP: Patient had left nephroureteral access placed for PCNL. Patient reports PCNL went well. No fevers, chills or pain site. No problems with urination. ON EXAMINATION: Left PCNL site healed. No hematoma or bruising. No left nephrostomy. IMPRESSION: Good result status post left PCNL access. No further follow-up scheduled. Thank you for this referral Allergies Coded Allergies: amoxicillin (Verified Adverse Reaction, Intermediate, jaundice, SCLERA ORANGE, URINE ORANGE, 05/07/21) clavulanic acid (Verified Adverse Reaction, Intermediate, jaundice, SCLERA ORANGE, URINE ORANGE, 05/07/21) VS,Fishbone, I+O VS, Fishbone, I+O Vital Signs Date Time Temp Pulse Resp B/P (MAP) Pulse Ox O2 Delivery O2 Flow Rate FiO2 05/25/21 09:05 97.9 84 16 136/72 (93) 98 Room Air LEOPOLDO AMBROSE MD May 27, 2021 12:32
== END ==
LOC: M IRPOV 08:57
PROVIDERS: ATTEND Radiology Diagnostic Radiology
DX: Z48.816 Encounter for surgical aftercare following surgery on the genitourinary system (principal); Z87.442 Personal history of urinary calculi

== ENCOUNTER → 2021-05-27 | Outpatient (CLI) | payer MEDICARE ==
--- NOTE | 2021-05-27 13:23 | REP ---
INDICATION: CALCULUS OF KIDNEY. COMPARISON: None. FINDINGS: KUB shows the intestinal gas pattern to be nonspecific. The organ silhouettes insofar as delineated are unremarkable. There is no evidence of free intraperitoneal air. 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 The proximal portion of each is in the region of the renal pelvis and the distal portion of each is in the urinary bladder. No abnormal calcifications are seen along the course of either pigtail stent. IMPRESSION: As above. <Electronically signed by Aly Bobo > 05/27/21 [id number]
== END ==
LOC: M PLAIMG 11:40
PROVIDERS: ATTEND Urology
DX: N20.0 Calculus of kidney (principal)

== ENCOUNTER → 2021-07-21 | Outpatient (CLI) | payer MEDICARE ==
--- NOTE | 2021-07-21 10:06 | REP ---
INDICATION: LIVER CIRRHOSIS PORTAL HTN. COMPARISON: 06/18/2020. TECHNIQUE: Real-time sonographic evaluation of ABDOMEN PERFORMED, WITH DUPLEX DOPPLER EVALUATION OF PORTAL VASCULATURE. FINDINGS: The gallbladder demonstrates a 1.2 cm intraluminal stone, with no evidence of wall thickening. There is no intrahepatic or extrahepatic biliary dilatation, common bile duct measures 3 mm in maximum diameter. The liver demonstrates heterogeneous echotexture with no discrete mass sonographically. The pancreas demonstrates homogeneous echotexture with no gross mass. Spleen is normal in size with no intrinsic abnormality, measuring 10.1 cm in length. There is no hydronephrosis bilaterally. The right kidney is diffusely echogenic suggesting medical renal disease. There is a cyst in the lower pole the left kidney 3.1 x 2.6 x 2.8 cm. The right kidney measures 11.0 x 4.6 x 5.0 cm. Left renal dimensions are 12.0 x 4.3 x 5.2 cm. The distal abdominal aorta is normal in caliber with no aneurysm. Proximal abdominal aorta could not be visualized due to overlying bowel gas. No free fluid is seen. The main portal vein measures 13 mm in diameter, stable. 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 Left portal vein is not clearly identified. There is increased pulsatility in the portal veins. Hepatic venous waveforms are unchanged. There is no portal vein thrombosis. Hepatic veins are patent with no thrombus. Patent main hepatic artery demonstrates peak systolic velocity of 90.9 centimeters/second. IMPRESSION: Stable gallstone in the gallbladder with no biliary dilatation. No liver mass identified. No splenomegaly or free fluid. Portal vasculature demonstrates normal direction of flow with no thrombosis. No evidence of hepatic vein thrombosis. 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 <Electronically signed by Krishna Bridges > 07/21/21 1001
== END ==
LOC: M RAD 07:18
PROVIDERS: ATTEND Internal Medicine Gastroenterology
DX: K80.20 Calculus of gallbladder without cholecystitis without obstruction (principal); K74.60 Unspecified cirrhosis of liver

== ENCOUNTER → 2021-12-06 | Outpatient (CLI) | payer MEDICARE ==
[~2021-12-06] MED LIST changes: -MONT10TA10 PO; +MONT10TA97 PO
[2021-12-06 17:40] LABS: BASO # 0.1 10^3/uL (0.0-0.2); BASO % 1.6 % (0.0-1.0); EOS # 0.7 10^3/uL (0.0-0.5); EOS % 12.4 % (0.0-3.0); HEMATOCRIT 44.5 % (42.0-52.0); HEMOGLOBIN 14.8 g/dl (13.5-17.5); LYMPH # 1.8 10^3/uL (1.5-5.0); LYMPH % 31.7 % (24.0-44.0); MEAN CORPUSCULAR HEMOGLOBIN 33.3 pg (27.0-33.0); MEAN CORPUSCULAR HGB CONC 33.3 g/dl (32.0-36.5); MONO # 0.7 10^3/uL (0.0-0.8); MONO % 12.2 % (2.0-8.0); NEUTROPHILS # 2.3 10^3/uL (1.5-8.5); NEUTROPHILS % 41.9 % (36.0-66.0); PLATELET COUNT, AUTOMATED 209 10^3/uL (150-450); RED BLOOD COUNT 4.45 10^6/uL (4.30-6.10); WHITE BLOOD COUNT 5.6 10^3/uL (4.0-10.0)
[2021-12-06 18:07] LABS: HEMOGLOBIN A1c 4.9 %
[2021-12-06 18:12] LABS: ALBUMIN 3.3 GM/DL (3.2-5.2); BILIRUBIN,TOTAL 1.1 MG/DL (0.2-1.0); CALCIUM LEVEL 9.8 MG/DL (8.8-10.2); CREATININE FOR GFR 1.61 MG/DL (0.70-1.30); GLOMERULAR FILTRATION RATE 44.2 (>35); POTASSIUM SERUM 5.1 MEQ/L (3.5-5.1); TOTAL PROTEIN 6.1 GM/DL (6.4-8.2)
[2021-12-06 18:13] LABS: INR 1.1; PROTHROMBIN TIME 14.6 SECONDS (12.7-14.5)
[2021-12-06 18:14] LABS: PARTIAL THROMBOPLASTIN TIME 33.4 SECONDS (25.9-37.0)
== END ==
LOC: M PLAIMG 14:59
PROVIDERS: ATTEND Nurse Practitioner Adult Health
DX: Z01.818 Encounter for other preprocedural examination (principal); Z79.01 Long term (current) use of anticoagulants

== ENCOUNTER → 2022-01-12 | Outpatient (CLI) | payer MEDICARE | LOC: M PLAIMG 01-06 11:50 | PROVIDERS: ATTEND Urology | DX: N20.0 Calculus of kidney (principal) ==

== ENCOUNTER → 2022-01-27 | Outpatient (CLI) | payer MEDICARE, BC ==
[2022-01-27 17:40] LABS: BASO # 0.1 10^3/uL (0.0-0.2); BASO % 1.3 % (0.0-1.0); EOS # 0.9 10^3/uL (0.0-0.5); EOS % 11.5 % (0.0-3.0); HEMATOCRIT 42.5 % (42.0-52.0); HEMOGLOBIN 14.5 g/dl (13.5-17.5); LYMPH # 2.2 10^3/uL (1.5-5.0); LYMPH % 28.5 % (24.0-44.0); MEAN CORPUSCULAR HGB CONC 34.1 g/dl (32.0-36.5); MEAN CORPUSCULAR VOLUME 99.5 fl (80.0-96.0); MONO % 13.2 % (2.0-8.0); NEUTROPHILS # 3.4 10^3/uL (1.5-8.5); NEUTROPHILS % 45.2 % (36.0-66.0); PLATELET COUNT, AUTOMATED 193 10^3/uL (150-450); RED BLOOD COUNT 4.27 10^6/uL (4.30-6.10); WHITE BLOOD COUNT 7.6 10^3/uL (4.0-10.0)
[2022-01-27 18:34] LABS: ALBUMIN 3.5 GM/DL (3.2-5.2); BILIRUBIN,TOTAL 1.3 MG/DL (0.2-1.0); CALCIUM LEVEL 10.4 MG/DL (8.8-10.2); CREATININE FOR GFR 1.6 MG/DL (0.70-1.30); GLOMERULAR FILTRATION RATE 44.4 (>35); POTASSIUM SERUM 4.4 MEQ/L (3.5-5.1); TOTAL PROTEIN 6.4 GM/DL (6.4-8.2)
== END ==
LOC: M RAD 17:06
PROVIDERS: ATTEND Nurse Practitioner Adult Health
DX: J10.00 Influenza due to other identified influenza virus with unspecified type of pneumonia (principal)

== ENCOUNTER → 2022-01-31 | Outpatient (CLI) | payer MEDICARE, BC ==
[~2022-01-31] MED LIST changes: +BREO1INH INH; +MAGN500C2 PO; +PERCOCET PO
== END ==
LOC: M PLALAB 12:39
PROVIDERS: ATTEND Urology
DX: Z01.818 Encounter for other preprocedural examination (principal); N20.0 Calculus of kidney; N39.0 Urinary tract infection, site not specified

== ENCOUNTER 2022-02-02 09:12 | Day surgery (SDC) | payer MEDICARE, BC ==
[~2022-02-02] VITALS: Ht 177.8 cm; Wt 78.5 kg
[~2022-02-02 09:12] MED LIST changes: +LevoFLOXacin IV 500 MG in IV 1 EA IV ONE; -PERCOCET PO
[2022-02-02] MEDS ORDERED: LR 1,000 ML IV SCH ×2 (10:05→13:15)
[2022-02-02] MEDS ORDERED: ISOVUE-300 61% 50ML VIAL As Ordered ONE (10:29)
[2022-02-02] MEDS ORDERED: ONDANSETRON 4MG 2ML VIAL As Ordered ONE (10:56)
[2022-02-02] MEDS ORDERED: dexameTHASONE 4 MG/ML 1ML VIAL (J1100 PER 1MG) As Ordered ONE (10:56)
[2022-02-02] MEDS ORDERED: LIDOCAINE 2% 100MG/5ML SDV (FOR ANES.) As Ordered ONE (10:56)
[2022-02-02] MEDS ORDERED: propofoL 200 MG/20 ML VIAL As Ordered ONE (10:56)
[2022-02-02] MEDS ORDERED: fentaNYL 100 MCG/2 ML INJECTION As Ordered ONE (10:56)
[2022-02-02] MEDS ORDERED: MIDAZOLAM INJ 2MG/2ML VIAL (J2250 PER 1MG) As Ordered ONE (10:56)
[2022-02-02] MEDS ORDERED: ePHEDrine SULFATE 25 MG/5 ML(5MG/ML) SYRINGE As Ordered ONE (10:58)
[2022-02-02] MEDS ORDERED: ACETAMINOPHEN 1000MG 100ML IV BTL (OFIRMEV) (J0131 PER 10MG) As Ordered ONE (11:04)
[2022-02-02] MEDS ORDERED: fentaNYL 100 MCG/2 ML INJECTION IV PRN (13:15)
[2022-02-02] MEDS ORDERED: PERCOCET 5MG/325MG TAB PO PRN ×2 (13:15→13:30)
[2022-02-02] MEDS ORDERED: MORPHINE 2 MG/ML 1ML VIAL IV PRN (13:15)
[2022-02-02] MEDS ORDERED: ONDANSETRON 4MG 2ML VIAL IV PRN (13:15)
[2022-02-02] MEDS ORDERED: PERCOCET PO (13:29)
[2022-02-02 16:30] VITALS: BP 132/66
[2022-02-07 17:08] LABS: CA Hydro Phos 90 % (.); CA Oxalate Dihy 10 % (.); Size 6x4 mm (.)
== END 2022-02-02 16:46 | disposition home or self-care (01) ==
LOC: M SDC 09:12
PROVIDERS: ATTEND Urology
DX: N20.0 Calculus of kidney (principal); E03.9 Hypothyroidism, unspecified; K21.9 Gastro-esophageal reflux disease without esophagitis; G47.33 Obstructive sleep apnea (adult) (pediatric); J44.9 Chronic obstructive pulmonary disease, unspecified; K76.0 Fatty (change of) liver, not elsewhere classified; Z79.51 Long term (current) use of inhaled steroids; Z87.891 Personal history of nicotine dependence; Z79.899 Other long term (current) drug therapy; Z88.0 Allergy status to penicillin; Z88.8 Allergy status to other drugs, medicaments and biological substances
CPT/HCPCS: 52353; 74420; 82365; C1769; C1894; C2617; J0131; J1100; J1956; J2250; J2405; J3010; Q9967

== ENCOUNTER → 2022-02-14 | Outpatient (CLI) | payer MEDICARE, BC ==
[~2022-02-14] MED LIST changes: -LevoFLOXacin IV 500 MG in IV 1 EA IV ONE; +PERCOCET PO
[2022-02-14 16:06] LABS: ALBUMIN 3.2 GM/DL (3.2-5.2); BILIRUBIN,DIRECT 0.4 MG/DL (0.0-0.2); BILIRUBIN,TOTAL 1.4 MG/DL (0.2-1.0)
== END ==
LOC: M PLALAB 13:07
PROVIDERS: ATTEND Internal Medicine Gastroenterology
DX: K74.60 Unspecified cirrhosis of liver (principal)

== ENCOUNTER → 2022-02-14 | Outpatient (CLI) | payer MEDICARE, BC | LOC: M PLAIMG 13:05 | PROVIDERS: ATTEND Urology | DX: N20.0 Calculus of kidney (principal); R63.4 Abnormal weight loss; R53.83 Other fatigue; K74.60 Unspecified cirrhosis of liver ==

== ENCOUNTER → 2022-02-14 | Outpatient (CLI) | payer MEDICARE, BC ==
[2022-02-14 15:43] LABS: BASO # 0.1 10^3/uL (0.0-0.2); EOS # 0.3 10^3/uL (0.0-0.5); HEMATOCRIT 41.4 % (42.0-52.0); HEMOGLOBIN 13.6 g/dl (13.5-17.5); LYMPH # 1.8 10^3/uL (1.5-5.0); LYMPH % 25.9 % (24.0-44.0); MEAN CORPUSCULAR HEMOGLOBIN 33.2 pg (27.0-33.0); MEAN CORPUSCULAR HGB CONC 32.9 g/dl (32.0-36.5); MONO # 0.7 10^3/uL (0.0-0.8); MONO % 10.7 % (2.0-8.0); NEUTROPHILS # 3.9 10^3/uL (1.5-8.5); NEUTROPHILS % 57.1 % (36.0-66.0); PLATELET COUNT, AUTOMATED 194 10^3/uL (150-450); WHITE BLOOD COUNT 6.8 10^3/uL (4.0-10.0)
[2022-02-14 16:17] LABS: ERYTHROCYTE SEDIMENTATION RATE 9 mm/hr (0-20)
[2022-02-14 16:20] LABS: ALBUMIN 3.1 GM/DL (3.2-5.2); BILIRUBIN,TOTAL 1.4 MG/DL (0.2-1.0); C REACTIVE PROTEIN QUANTITATIV 0.3 MG/DL (0.00-0.30); CALCIUM LEVEL 9.8 MG/DL (8.8-10.2); CREATININE FOR GFR 1.67 MG/DL (0.70-1.30); FREE T4 1.33 NG/DL (0.76-1.46); GLOMERULAR FILTRATION RATE 42.2 (>35); POTASSIUM SERUM 4.7 MEQ/L (3.5-5.1); THYROID STIMULATING HORMONE 1.79 uIU/ML (0.358-3.740)
== END ==
LOC: M PLALAB 13:03
PROVIDERS: ATTEND Nurse Practitioner Adult Health
DX: R63.4 Abnormal weight loss (principal); R53.83 Other fatigue

== ENCOUNTER → 2022-03-03 | Outpatient (CLI) | payer MEDICARE, BC | LOC: M RAD 08:41 | PROVIDERS: ATTEND Internal Medicine Gastroenterology | DX: K74.60 Unspecified cirrhosis of liver (principal) ==

== ENCOUNTER → 2022-05-12 | Outpatient (CLI) | payer MEDICARE, BC ==
[2022-05-12 14:45] LABS: BASO # 0.1 10^3/uL (0.0-0.2); HEMATOCRIT 39.4 % (42.0-52.0); HEMOGLOBIN 12.9 g/dl (13.5-17.5); LYMPH # 1.4 10^3/uL (1.5-5.0); LYMPH % 18.6 % (24.0-44.0); MEAN CORPUSCULAR HEMOGLOBIN 33.3 pg (27.0-33.0); MEAN CORPUSCULAR HGB CONC 32.7 g/dl (32.0-36.5); MEAN CORPUSCULAR VOLUME 101.8 fl (80.0-96.0); MONO % 13.1 % (2.0-8.0); NEUTROPHILS # 5.2 10^3/uL (1.5-8.5); NEUTROPHILS % 66.9 % (36.0-66.0); PLATELET COUNT, AUTOMATED 157 10^3/uL (150-450); RED BLOOD COUNT 3.87 10^6/uL (4.30-6.10); WHITE BLOOD COUNT 7.8 10^3/uL (4.0-10.0)
[2022-05-12 15:37] LABS: SOURCE, BODY FLUID GLUCOSE LFT KNEE
[2022-05-12 15:44] LABS: ERYTHROCYTE SEDIMENTATION RATE 10 mm/hr (0-20)
[2022-05-12 16:01] LABS: SOURCE, BODY FLUID LFT KNEE; SYNOVIAL FLUID COLOR YELLOW (COLORLESS)
[2022-05-12 16:51] LABS: CRYSTALS, BODY FLUID NONE SEEN (NONE SEEN); SOURCE, BODY FLUID CRYSTALS LFT KNEE
== END ==
LOC: M PLALAB 10:01
PROVIDERS: ATTEND Physician Assistant
DX: M25.462 Effusion, left knee (principal)

== ENCOUNTER → 2022-05-30 | Outpatient (REF) | payer MEDICARE, BC ==
[2022-05-30 21:30] LABS: BASO # 0.2 10^3/uL (0.0-0.2); BASO % 2.5 % (0.0-1.0); HEMATOCRIT 32.6 % (42.0-52.0); HEMOGLOBIN 10.8 g/dl (13.5-17.5); LYMPH # 1.5 10^3/uL (1.5-5.0); LYMPH % 24.7 % (24.0-44.0); MEAN CORPUSCULAR HEMOGLOBIN 33.6 pg (27.0-33.0); MEAN CORPUSCULAR HGB CONC 33.1 g/dl (32.0-36.5); MEAN CORPUSCULAR VOLUME 101.6 fl (80.0-96.0); MONO # 0.7 10^3/uL (0.0-0.8); MONO % 11.9 % (2.0-8.0); NEUTROPHILS # 3.6 10^3/uL (1.5-8.5); NEUTROPHILS % 60.4 % (36.0-66.0); PLATELET COUNT, AUTOMATED 254 10^3/uL (150-450); RED BLOOD COUNT 3.21 10^6/uL (4.30-6.10)
[2022-05-30 22:04] LABS: ERYTHROCYTE SEDIMENTATION RATE 27 mm/hr (0-20)
[2022-05-30 22:05] LABS: ALBUMIN 2.9 GM/DL (3.2-5.2); BILIRUBIN,TOTAL 0.6 MG/DL (0.2-1.0); C REACTIVE PROTEIN QUANTITATIV 0.3 MG/DL (0.00-0.30); CALCIUM LEVEL 9.7 MG/DL (8.8-10.2); CREATININE FOR GFR 1.43 MG/DL (0.70-1.30); GLOMERULAR FILTRATION RATE 50.5 (>35); POTASSIUM SERUM 4.1 MEQ/L (3.5-5.1); TOTAL PROTEIN 5.7 GM/DL (6.4-8.2)
== END ==
LOC: M LAB REF 21:21
PROVIDERS: ATTEND Family Medicine
DX: Z00.00 Encounter for general adult medical examination without abnormal findings (principal)

== ENCOUNTER → 2022-06-06 | Outpatient (REF) | payer MEDICARE, BC ==
[2022-06-06 14:45] LABS: BASO # 0.2 10^3/uL (0.0-0.2); BASO % 2.7 % (0.0-1.0); HEMOGLOBIN 11.1 g/dl (13.5-17.5); LYMPH # 1.4 10^3/uL (1.5-5.0); LYMPH % 24.5 % (24.0-44.0); MEAN CORPUSCULAR HGB CONC 32.6 g/dl (32.0-36.5); MEAN CORPUSCULAR VOLUME 101.2 fl (80.0-96.0); MONO # 0.6 10^3/uL (0.0-0.8); MONO % 10.5 % (2.0-8.0); NEUTROPHILS # 3.6 10^3/uL (1.5-8.5); PLATELET COUNT, AUTOMATED 243 10^3/uL (150-450); RED BLOOD COUNT 3.36 10^6/uL (4.30-6.10); WHITE BLOOD COUNT 5.8 10^3/uL (4.0-10.0)
[2022-06-06 15:15] LABS: ERYTHROCYTE SEDIMENTATION RATE 21 mm/hr (0-20)
[2022-06-06 15:29] LABS: ALBUMIN 3.1 G/DL (3.2-5.2); ALT/SGPT < 9 U/L (7.0-40); BILIRUBIN,TOTAL 0.7 MG/DL (0.3-1.2); BLOOD UREA NITROGEN 23 MG/DL (9-23); CARBON DIOXIDE LEVEL 27 MMOL/L (20-31); CHLORIDE LEVEL 105 MMOL/L (98-107); CREATININE FOR GFR 1.11 MG/DL (0.70-1.30); FREE T4 0.85 NG/DL (0.89-1.76); GLOMERULAR FILTRATION RATE > 60.0 (>35); GLUCOSE, FASTING 104 MG/DL (74-106); SODIUM LEVEL 140 MMOL/L (136-145); TOTAL PROTEIN 5.8 G/DL (5.7-8.2)
== END ==
LOC: M SHH 14:23
PROVIDERS: ATTEND Nurse Practitioner
DX: M25.562 Pain in left knee (principal); E07.9 Disorder of thyroid, unspecified

== ENCOUNTER → 2022-06-13 | Outpatient (REF) | payer MEDICARE, BC ==
[~2022-06-13] MED LIST changes: +ACET1TAB55 PO; +ASPI81CH33 PO; +AVOD0.5C PO; +B-1100TA2 PO; +CEFA10IN; +CETI10CH PO; +CYCL5TAB PO; +D3 +TAB PO; +OMEP-173 PO; +RIFA300C8; +RIFA30CA PO; +SENN-80 PO; +SING10TA32 PO; +TAMS1CAP17; +[UNRECOGNIZED DRUG - OTHER] PO
[2022-06-13 16:24] LABS: BASO # 0.1 10^3/uL (0.0-0.2); BASO % 1.2 % (0.0-1.0); HEMATOCRIT 32.1 % (42.0-52.0); HEMOGLOBIN 10.8 g/dl (13.5-17.5); LYMPH # 0.7 10^3/uL (1.5-5.0); LYMPH % 14.5 % (24.0-44.0); MEAN CORPUSCULAR HEMOGLOBIN 33.5 pg (27.0-33.0); MEAN CORPUSCULAR HGB CONC 33.6 g/dl (32.0-36.5); MEAN CORPUSCULAR VOLUME 99.7 fl (80.0-96.0); MONO # 0.8 10^3/uL (0.0-0.8); MONO % 16.9 % (2.0-8.0); NEUTROPHILS # 3.3 10^3/uL (1.5-8.5); PLATELET COUNT, AUTOMATED 137 10^3/uL (150-450); RED BLOOD COUNT 3.22 10^6/uL (4.30-6.10); WHITE BLOOD COUNT 4.9 10^3/uL (4.0-10.0)
[2022-06-13 16:27] LABS: ALBUMIN 2.7 G/DL (3.2-5.2); CARBON DIOXIDE LEVEL 26 MMOL/L (20-31); CHLORIDE LEVEL 105 MMOL/L (98-107); POTASSIUM SERUM 3.7 MMOL/L (3.5-5.1); SODIUM LEVEL 140 MMOL/L (136-145)
[2022-06-13 16:32] LABS: CALCIUM LEVEL 8.6 MG/DL (8.3-10.6); GLUCOSE, FASTING 97 MG/DL (74-106)
[2022-06-13 16:33] LABS: BLOOD UREA NITROGEN 22 MG/DL (9-23)
[2022-06-13 16:34] LABS: ALT/SGPT 28 U/L (7.0-40)
[2022-06-13 16:35] LABS: BILIRUBIN,TOTAL 0.6 MG/DL (0.3-1.2); CREATININE FOR GFR 1.15 MG/DL (0.70-1.30); FREE T4 0.73 NG/DL (0.89-1.76); GLOMERULAR FILTRATION RATE > 60.0 (>35); THYROID STIMULATING HORMONE 1.264 uIU/ML (0.55-4.78)
[2022-06-13 17:02] LABS: ERYTHROCYTE SEDIMENTATION RATE 19 mm/hr (0-20)
== END ==
LOC: M SHH 15:37
PROVIDERS: ATTEND Orthopaedic Surgery
DX: M25.562 Pain in left knee (principal)

== ENCOUNTER 2022-06-14 13:55 | Emergency (ER) | payer MEDICARE, BC ==
[~2022-06-14] VITALS: Ht 175.3 cm; Wt 78.1 kg
[~2022-06-14 13:55] MED LIST changes: -ACET1TAB55 PO; -ASPI81CH33 PO; -AVOD0.5C PO; -B-1100TA2 PO; -CEFA10IN; -CETI10CH PO; -CYCL5TAB PO; -D3 +TAB PO; -OMEP-173 PO; -RIFA300C8; -RIFA30CA PO; -SENN-80 PO; -SING10TA32 PO; -TAMS1CAP17; -[UNRECOGNIZED DRUG - OTHER] PO
[2022-06-14] MEDS ORDERED: ASPI81CH33 PO (14:15)
[2022-06-14] MEDS ORDERED: TAMS1CAP17 (14:15)
[2022-06-14] MEDS ORDERED: RIFA300C8 (14:15)
[2022-06-14] MEDS ORDERED: SENN-80 PO (14:15)
[2022-06-14] MEDS ORDERED: RIFA30CA PO (14:15)
[2022-06-14] MEDS ORDERED: SING10TA32 PO (14:15)
[2022-06-14] MEDS ORDERED: AVOD0.5C PO (14:15)
[2022-06-14] MEDS ORDERED: B-1100TA2 PO (14:15)
[2022-06-14] MEDS ORDERED: ACET1TAB55 PO (14:15)
[2022-06-14] MEDS ORDERED: THYR60TA PO (14:15)
[2022-06-14] MEDS ORDERED: CEFA10IN (14:15)
[2022-06-14] MEDS ORDERED: CETI10CH PO (14:15)
[2022-06-14] MEDS ORDERED: [UNRECOGNIZED DRUG - OTHER] PO (14:15)
[2022-06-14] MEDS ORDERED: OMEP-173 PO (14:15)
[2022-06-14] MEDS ORDERED: D3 +TAB PO (14:15)
[2022-06-14] MEDS ORDERED: CYCL5TAB PO (14:15)
[2022-06-14 16:30] LABS: CHLORIDE LEVEL 105 MMOL/L (98-107); POTASSIUM SERUM 3.7 MMOL/L (3.5-5.1); SODIUM LEVEL 140 MMOL/L (136-145)
[2022-06-14 16:31] LABS: CARBON DIOXIDE LEVEL 26 MMOL/L (20-31)
[2022-06-14 16:36] LABS: BLOOD UREA NITROGEN 20 MG/DL (9-23); GLUCOSE, FASTING 86 MG/DL (74-106)
[2022-06-14 16:38] LABS: GLOMERULAR FILTRATION RATE > 60.0 (>35)
[2022-06-14 18:01] LABS: BASO # 0.1 10^3/uL (0.0-0.2); BASO % 1.6 % (0.0-1.0); HEMATOCRIT 34.5 % (42.0-52.0); HEMOGLOBIN 11.8 g/dl (13.5-17.5); LYMPH # 1.1 10^3/uL (1.5-5.0); LYMPH % 17.1 % (24.0-44.0); MEAN CORPUSCULAR HEMOGLOBIN 33.8 pg (27.0-33.0); MEAN CORPUSCULAR HGB CONC 34.2 g/dl (32.0-36.5); MEAN CORPUSCULAR VOLUME 98.9 fl (80.0-96.0); MONO # 0.8 10^3/uL (0.0-0.8); MONO % 12.6 % (2.0-8.0); NEUTROPHILS # 4.2 10^3/uL (1.5-8.5); NEUTROPHILS % 68.2 % (36.0-66.0); PLATELET COUNT, AUTOMATED 134 10^3/uL (150-450); RED BLOOD COUNT 3.49 10^6/uL (4.30-6.10); WHITE BLOOD COUNT 6.1 10^3/uL (4.0-10.0)
[2022-06-14 18:41] LABS: ERYTHROCYTE SEDIMENTATION RATE 21 mm/hr (0-20)
[2022-06-14 19:22] VITALS: BP 98/63
== END 2022-06-14 19:27 | disposition home or self-care (01) ==
LOC: M ED 13:55
DX: D69.6 Thrombocytopenia, unspecified (principal); B34.9 Viral infection, unspecified

== ENCOUNTER → 2022-06-16 | Outpatient (CLI) | payer MEDICARE, BC ==
[~2022-06-16] MED LIST changes: +ACET1TAB55 PO; +ASPI81CH33 PO; +AVOD0.5C PO; +B-1100TA2 PO; +CEFA10IN; +CETI10CH PO; +CYCL5TAB PO; +D3 +TAB PO; +OMEP-173 PO; +RIFA300C8; +RIFA30CA PO; +SENN-80 PO; +SING10TA32 PO; +TAMS1CAP17; +[UNRECOGNIZED DRUG - OTHER] PO
[2022-06-16 15:27] LABS: BASO # 0.1 10^3/uL (0.0-0.2); BASO % 0.9 % (0.0-1.0); HEMATOCRIT 33.1 % (42.0-52.0); HEMOGLOBIN 11.1 g/dl (13.5-17.5); LYMPH # 0.9 10^3/uL (1.5-5.0); MEAN CORPUSCULAR HEMOGLOBIN 33.6 pg (27.0-33.0); MEAN CORPUSCULAR HGB CONC 33.5 g/dl (32.0-36.5); MEAN CORPUSCULAR VOLUME 100.3 fl (80.0-96.0); MONO # 0.7 10^3/uL (0.0-0.8); MONO % 12.8 % (2.0-8.0); NEUTROPHILS # 4.1 10^3/uL (1.5-8.5); NEUTROPHILS % 69.8 % (36.0-66.0); PLATELET COUNT, AUTOMATED 127 10^3/uL (150-450); WHITE BLOOD COUNT 5.8 10^3/uL (4.0-10.0)
== END ==
LOC: M PLALAB 13:54
PROVIDERS: ATTEND Family Medicine
DX: D69.6 Thrombocytopenia, unspecified (principal)

== ENCOUNTER → 2022-06-20 | Outpatient (REF) | payer MEDICARE, BC ==
[2022-06-20 14:59] LABS: BASO # 0.1 10^3/uL (0.0-0.2); HEMATOCRIT 31.5 % (42.0-52.0); HEMOGLOBIN 10.5 g/dl (13.5-17.5); LYMPH # 0.7 10^3/uL (1.5-5.0); LYMPH % 7.9 % (24.0-44.0); MEAN CORPUSCULAR HEMOGLOBIN 33.5 pg (27.0-33.0); MEAN CORPUSCULAR HGB CONC 33.3 g/dl (32.0-36.5); MEAN CORPUSCULAR VOLUME 100.6 fl (80.0-96.0); MONO # 1.1 10^3/uL (0.0-0.8); MONO % 13.3 % (2.0-8.0); NEUTROPHILS # 6.5 10^3/uL (1.5-8.5); NEUTROPHILS % 77.2 % (36.0-66.0); PLATELET COUNT, AUTOMATED 191 10^3/uL (150-450); RED BLOOD COUNT 3.13 10^6/uL (4.30-6.10); WHITE BLOOD COUNT 8.4 10^3/uL (4.0-10.0)
[2022-06-20 15:51] LABS: ERYTHROCYTE SEDIMENTATION RATE 35 mm/hr (0-20)
[2022-06-20 16:59] LABS: C REACTIVE PROTEIN QUANTITATIV 4.4 MG/DL (<1.0)
[2022-06-20 17:01] LABS: ALBUMIN 2.5 G/DL (3.2-5.2); BILIRUBIN,TOTAL 0.9 MG/DL (0.3-1.2); CALCIUM LEVEL 9.9 MG/DL (8.3-10.6); CREATININE FOR GFR 1.26 MG/DL (0.70-1.30); FREE T4 0.84 NG/DL (0.89-1.76); GLOMERULAR FILTRATION RATE 58.5 (>35); POTASSIUM SERUM 4.3 MMOL/L (3.5-5.1); THYROID STIMULATING HORMONE 2.879 uIU/ML (0.55-4.78); TOTAL PROTEIN 5.4 G/DL (5.7-8.2)
== END ==
LOC: M SHH 14:14
PROVIDERS: ATTEND Internal Medicine Infectious Disease
DX: M25.562 Pain in left knee (principal); E07.9 Disorder of thyroid, unspecified

== ENCOUNTER → 2022-06-21 | Outpatient (CLI) | payer MEDICARE, BC ==
[2022-06-21 15:42] LABS: PERCENT SATURATION 19.1 % (19.7-50.0)
[2022-06-21 15:43] LABS: FERRITIN 124.7 NG/ML (10.5-307.3)
== END ==
LOC: M PLALAB 12:49
PROVIDERS: ATTEND Family Medicine
DX: D64.9 Anemia, unspecified (principal)

== ENCOUNTER 2022-06-27 13:24 | Inpatient (IN) | payer MEDICARE, BC ==
[~2022-06-27] VITALS: Ht 175.3 cm; Wt 79.9 kg
[~2022-06-27 13:24] MED LIST changes: -TAMS1CAP17; +TAMS1CAP17 PO
[2022-06-27 15:04] LABS: BASO # 0.1 10^3/uL (0.0-0.2); BASO % 1.2 % (0.0-1.0); HEMATOCRIT 29.9 % (42.0-52.0); HEMOGLOBIN 10.1 g/dl (13.5-17.5); LYMPH # 1.2 10^3/uL (1.5-5.0); LYMPH % 14.8 % (24.0-44.0); MEAN CORPUSCULAR HEMOGLOBIN 33.9 pg (27.0-33.0); MEAN CORPUSCULAR HGB CONC 33.8 g/dl (32.0-36.5); MEAN CORPUSCULAR VOLUME 100.3 fl (80.0-96.0); MONO # 1.2 10^3/uL (0.0-0.8); MONO % 15.2 % (2.0-8.0); NEUTROPHILS # 5.5 10^3/uL (1.5-8.5); NEUTROPHILS % 68.3 % (36.0-66.0); PLATELET COUNT, AUTOMATED 254 10^3/uL (150-450); RED BLOOD COUNT 2.98 10^6/uL (4.30-6.10)
[2022-06-27 15:31] LABS: ALBUMIN 2.3 G/DL (3.2-5.2); ALKALINE PHOSPHATASE 160 U/L (46-116); ALT/SGPT < 9 U/L (7.0-40); AST/SGOT 22 U/L (<34); BILIRUBIN,DIRECT 0.4 MG/DL (<0.4); BILIRUBIN,TOTAL 0.8 MG/DL (0.3-1.2); BLOOD UREA NITROGEN 37 MG/DL (9-23); CALCIUM LEVEL 13.5 MG/DL (8.3-10.6); CARBON DIOXIDE LEVEL 30 MMOL/L (20-31); CHLORIDE LEVEL 105 MMOL/L (98-107); CREATININE FOR GFR 1.73 MG/DL (0.70-1.30); GLOMERULAR FILTRATION RATE 40.6 (>35); GLUCOSE, FASTING 95 MG/DL (74-106); POTASSIUM SERUM 3.1 MMOL/L (3.5-5.1); SODIUM LEVEL 141 MMOL/L (136-145); TOTAL PROTEIN 5.4 G/DL (5.7-8.2)
[2022-06-27 15:32] LABS: THYROID STIMULATING HORMONE 2.378 uIU/ML (0.55-4.78); THYROXINE (T4) 6.1 UG/DL (4.5-10.9)
[2022-06-27] MEDS ORDERED: NS 500 ML IV ONE (16:30)
[2022-06-27] MEDS ORDERED: NS 1,000 ML IV SCH ×2 (18:30→21:05)
[2022-06-27] MEDS ORDERED: POTASSIUM CHLORIDE 10% LIQ 20 MEQ/15 ML UDC PO ONE (20:10)
[2022-06-27] MEDS ORDERED: FLEET ENEMA PR ONE (20:10)
[2022-06-27] MEDS ORDERED: POTASSIUM CHLORIDE 10MEQ SR TABLET PO ONE (20:10)
[2022-06-27] MEDS ORDERED: ONDANSETRON 4MG 2ML VIAL IV PRN (20:10)
[2022-06-27] MEDS ORDERED: PANTOPRAZOLE 40MG VIAL IV ONE (20:10)
[2022-06-27] MEDS ORDERED: CETI-24 PO (20:26)
[2022-06-27] MEDS ORDERED: MAGN50TA PO (20:26)
[2022-06-27] MEDS ORDERED: VANCOMYCIN HCL 1,000 MG, VIAL MATE ADAPTER 1 EACH in NS 250 ML IV ONE (20:30)
[2022-06-27] MEDS ORDERED: CHOL125C6 PO (20:46)
[2022-06-27] MEDS ORDERED: med rec comment (20:50)
[2022-06-27] MEDS ORDERED: CEFA10IN IV (20:52)
[2022-06-27] MEDS ORDERED: HOME MED LIST COMPLETE! XX SCH (20:55)
[2022-06-27] MEDS ORDERED: BISACODYL 10 MG SUPP PR ONE (21:05)
[2022-06-27] MEDS ORDERED: ALBUTEROL SULFATE 2.5 MG/0.5 ML INH NEB SOLN NEB PRN (21:05)
[2022-06-27] MEDS ORDERED: ACETAMINOPHEN TAB 650MG DOSE (2X325MG) PO PRN (21:05)
[2022-06-27] MEDS ORDERED: CYCLOBENZAPRINE 5MG TABLET PO PRN (21:50)
[2022-06-27] MEDS: HEPARIN SOD (PORCINE) 5000UNITS/ML 1ML VIAL/SYRINGE SC SCH (22:37)
[2022-06-27] MEDS: PIPERACILLIN/TAZOBACTAM SOD 2.25 GM in D5W MINI-BAG PLUS 50 ML IV SCH (22:37)
[2022-06-28] MEDS ORDERED: VANCOMYCIN HCL 1,000 MG, VIAL MATE ADAPTER 1 EACH in NS 250 ML IV ONE ×4 (01:00)
[2022-06-28 01:04] VITALS: BP 125/70
[2022-06-28] MEDS: guaiFENesin 200 MG TAB PO SCH ×5 (01:35→18:20)
[2022-06-28] MEDS: ALBUTEROL SULFATE 2.5 MG/0.5 ML INH NEB SOLN NEB SCH ×4 (02:00→19:55)
[2022-06-28] MEDS: rifAMPin 150MG CAPSULE PO SCH ×3 (02:57→21:20)
[2022-06-28] MEDS: LATANOPROST 0.005% OPHTH SOLN 2.5 ML OU SCH ×2 (02:57→20:19)
[2022-06-28] MEDS ORDERED: NS 1,000 ML IV SCH (03:30)
[2022-06-28 04:00] VITALS: BP 124/66
[2022-06-28] MEDS: PIPERACILLIN/TAZOBACTAM SOD 2.25 GM in D5W MINI-BAG PLUS 50 ML IV SCH ×2 (04:00→09:03)
[2022-06-28 05:16] LABS: HEMATOCRIT 28.6 % (42.0-52.0); HEMOGLOBIN 9.6 g/dl (13.5-17.5); MEAN CORPUSCULAR HEMOGLOBIN 33.6 pg (27.0-33.0); MEAN CORPUSCULAR HGB CONC 33.6 g/dl (32.0-36.5); PLATELET COUNT, AUTOMATED 225 10^3/uL (150-450); RED BLOOD COUNT 2.86 10^6/uL (4.30-6.10)
[2022-06-28 05:37] LABS: ERYTHROCYTE SEDIMENTATION RATE 32 mm/hr (0-20)
[2022-06-28 05:44] LABS: ALKALINE PHOSPHATASE 135 U/L (46-116); ALT/SGPT < 9 U/L (7.0-40); AST/SGOT 24 U/L (<34); BILIRUBIN,TOTAL 0.8 MG/DL (0.3-1.2); BLOOD UREA NITROGEN 19 MG/DL (9-23); CALCIUM LEVEL 12.6 MG/DL (8.3-10.6); CARBON DIOXIDE LEVEL 24 MMOL/L (20-31); CHLORIDE LEVEL 111 MMOL/L (98-107); GLOMERULAR FILTRATION RATE 41.4 (>35); GLUCOSE, FASTING 73 MG/DL (74-106); POTASSIUM SERUM 3.6 MMOL/L (3.5-5.1); SODIUM LEVEL 142 MMOL/L (136-145); TOTAL PROTEIN 5.1 G/DL (5.7-8.2)
[2022-06-28] MEDS: THYROID 30MG TAB PO SCH (06:37)
[2022-06-28 07:50] LABS: VANCOMYCIN RANDOM 14.1 UG/ML
[2022-06-28 08:00] VITALS: BP 118/68
[2022-06-28] MEDS ORDERED: CEFA2INJ4 IV (08:53)
[2022-06-28] MEDS: DUTASTERIDE 0.5 MG CAP (AVODART) PO SCH (09:00)
[2022-06-28] MEDS: THIAMINE 100 MG TAB PO SCH (09:00)
[2022-06-28] MEDS: ASPIRIN 81MG CHEW TABLET PO SCH (09:00)
[2022-06-28] MEDS: TAMSULOSIN 0.4 MG CAP PO SCH (09:00)
[2022-06-28] MEDS: OMEPRAZOLE 20MG CAP PO SCH (09:00)
[2022-06-28] MEDS: HEPARIN SOD (PORCINE) 5000UNITS/ML 1ML VIAL/SYRINGE SC SCH ×2 (09:01→20:20)
[2022-06-28 09:24] LABS: TOTAL 25(OH) VITAMIN D 44.8 NG/ML (20.0-100.0)
[2022-06-28] MEDS ORDERED: ZOLEDRONIC ACID 4 MG in IV 1 EA IV ONE (10:00)
[2022-06-28] MEDS: KCL 20MEQ in NS 1000ML 1,000 ML IV SCH ×3 (10:48→22:48)
[2022-06-28] MEDS: VANCOMYCIN HCL 1,000 MG, VIAL MATE ADAPTER 1 EACH in D5W 250 ML IV SCH (10:48)
[2022-06-28] MEDS: CALCITONIN SALMON (MIACALCIN) 400INTERNATIONAL UNITS/2ML VIAL SQ SCH ×2 (10:48→21:21)
[2022-06-28 12:39] LABS: C REACTIVE PROTEIN QUANTITATIV 0.9 MG/DL (<1.0); TOTAL PROTEIN 5.3 GM/DL (6.4-8.2)
[2022-06-28 12:41] LABS: PERCENT SATURATION 38.8 % (19.7-50.0)
[2022-06-28 12:42] LABS: FOLATE 20.23 NG/ML (>5.4)
[2022-06-28] MEDS: PIPERACILLIN/TAZOBACTAM SOD 3.375 GM in D5W MINI-BAG PLUS 50 ML IV SCH ×2 (15:45→21:21)
[2022-06-28 16:00] VITALS: BP 133/63
[2022-06-28 20:00] VITALS: BP 122/66
[2022-06-29] VITALS: BP 134/70
[2022-06-29] MEDS: guaiFENesin 200 MG TAB PO SCH ×3 (00:33→11:07)
[2022-06-29] MEDS: ALBUTEROL SULFATE 2.5 MG/0.5 ML INH NEB SOLN NEB SCH ×2 (01:51→07:12)
[2022-06-29 04:00] VITALS: BP 133/67
[2022-06-29] MEDS: PIPERACILLIN/TAZOBACTAM SOD 3.375 GM in D5W MINI-BAG PLUS 50 ML IV SCH ×2 (04:25→11:07)
[2022-06-29] MEDS: THYROID 30MG TAB PO SCH (05:23)
[2022-06-29] MEDS: KCL 20MEQ in NS 1000ML 1,000 ML IV SCH (08:00)
[2022-06-29] MEDS: VANCOMYCIN HCL 1,000 MG, VIAL MATE ADAPTER 1 EACH in D5W 250 ML IV SCH (08:01)
[2022-06-29] MEDS: rifAMPin 150MG CAPSULE PO SCH (08:02)
[2022-06-29] MEDS: ASPIRIN 81MG CHEW TABLET PO SCH (08:02)
[2022-06-29] MEDS: DUTASTERIDE 0.5 MG CAP (AVODART) PO SCH (08:02)
[2022-06-29] MEDS: HEPARIN SOD (PORCINE) 5000UNITS/ML 1ML VIAL/SYRINGE SC SCH (08:02)
[2022-06-29] MEDS: TAMSULOSIN 0.4 MG CAP PO SCH (08:02)
[2022-06-29] MEDS: THIAMINE 100 MG TAB PO SCH (08:02)
[2022-06-29] MEDS: OMEPRAZOLE 20MG CAP PO SCH (08:02)
[2022-06-29 08:22] VITALS: BP 124/72
[2022-06-29 08:36] LABS: HEMATOCRIT 28.8 % (42.0-52.0); HEMOGLOBIN 9.8 g/dl (13.5-17.5); PLATELET COUNT, AUTOMATED 248 10^3/uL (150-450); RED BLOOD COUNT 2.88 10^6/uL (4.30-6.10)
[2022-06-29 08:55] LABS: VANCOMYCIN LEVEL TROUGH 11.8 UG/ML (10.0-20.0)
[2022-06-29 09:00] LABS: ALBUMIN 2.3 G/DL (3.2-5.2); CREATININE FOR GFR 1.84 MG/DL (0.70-1.30); GLOMERULAR FILTRATION RATE 37.8 (>35); PHOSPHORUS LEVEL 2.2 MG/DL (2.4-5.1); POTASSIUM SERUM 3.5 MMOL/L (3.5-5.1)
[2022-06-29] MEDS: CALCITONIN SALMON (MIACALCIN) 400INTERNATIONAL UNITS/2ML VIAL SQ SCH (11:07)
[2022-06-29 12:00] VITALS: BP 112/57
[2022-06-29 18:07] LABS: KAPPA/LAMBDA RATIO SERUM 1.63 (0.26-1.65)
== END 2022-06-29 14:41 | disposition home or self-care (01) | DRG 641 ==
LOC: EDBD 13:24 → M ED 13:24 → M ED INP 20:43 → ENRESERV 06-28 → M PCU 06-28 01:04
PROVIDERS: ADMIT Internal Medicine; ATTEND Family Medicine
DX: E83.52 Hypercalcemia (principal); N17.9 Acute kidney failure, unspecified; D64.9 Anemia, unspecified; Z79.82 Long term (current) use of aspirin; Z79.899 Other long term (current) drug therapy; Z88.8 Allergy status to other drugs, medicaments and biological substances

== ENCOUNTER → 2022-07-06 | Outpatient (CLI) | payer MEDICARE, BC ==
[~2022-07-06] MED LIST changes: +CEFA10IN IV; +CEFA2INJ4 IV; +CETI-24 PO; +CHOL125C6 PO; +MAGN50TA PO; +med rec comment
[2022-07-06 15:46] LABS: BASO # 0.1 10^3/uL (0.0-0.2); BASO % 1.9 % (0.0-1.0); HEMATOCRIT 33.2 % (42.0-52.0); HEMOGLOBIN 10.8 g/dl (13.5-17.5); LYMPH % 26.6 % (24.0-44.0); MEAN CORPUSCULAR HEMOGLOBIN 33.3 pg (27.0-33.0); MEAN CORPUSCULAR HGB CONC 32.5 g/dl (32.0-36.5); MEAN CORPUSCULAR VOLUME 102.5 fl (80.0-96.0); MONO % 12.8 % (2.0-8.0); NEUTROPHILS # 4.4 10^3/uL (1.5-8.5); NEUTROPHILS % 58.3 % (36.0-66.0); PLATELET COUNT, AUTOMATED 223 10^3/uL (150-450); RED BLOOD COUNT 3.24 10^6/uL (4.30-6.10); WHITE BLOOD COUNT 7.6 10^3/uL (4.0-10.0)
[2022-07-06 16:21] LABS: ALBUMIN 2.7 G/DL (3.2-5.2); ALKALINE PHOSPHATASE 113 U/L (46-116); ALT/SGPT 14 U/L (7.0-40); AST/SGOT 28 U/L (<34); BILIRUBIN,TOTAL 0.8 MG/DL (0.3-1.2); BLOOD UREA NITROGEN 35 MG/DL (9-23); CALCIUM LEVEL 10.9 MG/DL (8.3-10.6); CARBON DIOXIDE LEVEL 28 MMOL/L (20-31); CHLORIDE LEVEL 108 MMOL/L (98-107); CREATININE FOR GFR 1.61 MG/DL (0.70-1.30); GLOMERULAR FILTRATION RATE 44.1 (>35); GLUCOSE, FASTING 84 MG/DL (74-106); POTASSIUM SERUM 3.7 MMOL/L (3.5-5.1); SODIUM LEVEL 143 MMOL/L (136-145); TOTAL PROTEIN 6.3 G/DL (5.7-8.2); TOTAL PROTEIN 6.3 GM/DL (6.4-8.2)
[2022-07-07 11:34] LABS: ALBUMIN 3.26 GM/DL (3.29-5.55); ALBUMIN % 51.8 % (55.8-66.1); ALPHA-1-GLOBULIN % 3.9 % (2.9-4.9); ALPHA-1-GLOBULINS 0.25 GM/DL (0.17-0.41); ALPHA-2-GLOBULINS 0.61 GM/DL (0.42-0.99); ALPHA-2-GLOBULINS % 9.7 % (7.1-11.8); BETA-1-GLOBULINS 0.35 GM/DL (0.28-0.60); BETA-1-GLOBULINS % 5.5 % (4.7-7.2); BETA-2-GLOBULINS 0.42 GM/DL (0.19-0.55); BETA-2-GLOBULINS % 6.7 % (3.2-6.5); GAMMA GLOBULIN % 22.4 % (11.1-18.8)
[2022-07-07 11:35] LABS: GAMMA GLOBULINS 1.41 GM/DL (0.65-1.58)
== END ==
LOC: M PLALAB 12:41
PROVIDERS: ATTEND Family Medicine
DX: D64.9 Anemia, unspecified (principal); N17.9 Acute kidney failure, unspecified; R82.994 Hypercalciuria

== ENCOUNTER → 2022-07-20 | Outpatient (CLI) | payer MEDICARE ==
[2022-07-20 14:51] LABS: BASO # 0.1 10^3/uL (0.0-0.2); BASO % 1.8 % (0.0-1.0); EOS % 0.2 % (0.0-3.0); HEMATOCRIT 35.7 % (42.0-52.0); HEMOGLOBIN 11.5 g/dl (13.5-17.5); LYMPH # 1.4 10^3/uL (1.5-5.0); LYMPH % 22.8 % (24.0-44.0); MEAN CORPUSCULAR HEMOGLOBIN 33.2 pg (27.0-33.0); MEAN CORPUSCULAR HGB CONC 32.2 g/dl (32.0-36.5); MEAN CORPUSCULAR VOLUME 103.2 fl (80.0-96.0); MONO # 0.7 10^3/uL (0.0-0.8); MONO % 11.6 % (2.0-8.0); NEUTROPHILS # 3.8 10^3/uL (1.5-8.5); NEUTROPHILS % 63.3 % (36.0-66.0); PLATELET COUNT, AUTOMATED 188 10^3/uL (150-450); RED BLOOD COUNT 3.46 10^6/uL (4.30-6.10)
[2022-07-20 15:24] LABS: BILIRUBIN,TOTAL 1.2 MG/DL (0.3-1.2); CALCIUM LEVEL 9.8 MG/DL (8.3-10.6); CREATININE FOR GFR 1.43 MG/DL (0.70-1.30); GLOMERULAR FILTRATION RATE 50.5 (>35); POTASSIUM SERUM 4.4 MMOL/L (3.5-5.1); TOTAL PROTEIN 6.9 G/DL (5.7-8.2)
== END ==
LOC: M PLALAB 10:47
PROVIDERS: ATTEND Family Medicine
DX: E83.52 Hypercalcemia (principal)

== ENCOUNTER → 2022-08-03 | Outpatient (CLI) | payer BC, MEDICARE ==
[~2022-08-03] MED LIST changes: +BACI1CAP4 PO; +BALANCE OF NATURE PO; +CEFA500C2; +COFF1CAP3 PO
[2022-08-03 10:53] LABS: BASO # 0.1 10^3/uL (0.0-0.2); BASO % 1.8 % (0.0-1.0); EOS % 0.2 % (0.0-3.0); HEMOGLOBIN 11.8 g/dl (13.5-17.5); LYMPH # 1.4 10^3/uL (1.5-5.0); LYMPH % 27.3 % (24.0-44.0); MEAN CORPUSCULAR HEMOGLOBIN 33.7 pg (27.0-33.0); MEAN CORPUSCULAR HGB CONC 32.8 g/dl (32.0-36.5); MEAN CORPUSCULAR VOLUME 102.9 fl (80.0-96.0); MONO # 0.6 10^3/uL (0.0-0.8); MONO % 11.1 % (2.0-8.0); NEUTROPHILS # 2.9 10^3/uL (1.5-8.5); NEUTROPHILS % 59.4 % (36.0-66.0); PLATELET COUNT, AUTOMATED 190 10^3/uL (150-450)
[2022-08-03 11:02] LABS: ERYTHROCYTE SEDIMENTATION RATE 13 mm/hr (0-20)
[2022-08-03 11:27] LABS: C REACTIVE PROTEIN QUANTITATIV < 0.40 MG/DL (<1.0)
[2022-08-03 11:29] LABS: ALBUMIN 3.1 G/DL (3.2-5.2); ALKALINE PHOSPHATASE 88 U/L (46-116); ALT/SGPT 10 U/L (7.0-40); AST/SGOT 20 U/L (<34); BILIRUBIN,TOTAL 0.9 MG/DL (0.3-1.2); BLOOD UREA NITROGEN 22 MG/DL (9-23); CARBON DIOXIDE LEVEL 26 MMOL/L (20-31); CHLORIDE LEVEL 107 MMOL/L (98-107); CREATININE FOR GFR 1.36 MG/DL (0.70-1.30); GLOMERULAR FILTRATION RATE 53.5 (>35); GLUCOSE, FASTING 102 MG/DL (74-106); POTASSIUM SERUM 4.3 MMOL/L (3.5-5.1); SODIUM LEVEL 141 MMOL/L (136-145); TOTAL PROTEIN 6.7 G/DL (5.7-8.2)
== END ==
LOC: M PLALAB 08:44
PROVIDERS: ATTEND Family Medicine
DX: M25.462 Effusion, left knee (principal)

== ENCOUNTER → 2022-08-05 | Outpatient (CLI) | payer MEDICARE | LOC: M WHC 07:24 | PROVIDERS: ATTEND Internal Medicine Medical Oncology | DX: D73.1 Hypersplenism (principal); R59.1 Generalized enlarged lymph nodes ==

== ENCOUNTER → 2022-08-31 | Outpatient (CLI) | payer BC, MEDICARE ==
[2022-08-31 13:34] LABS: BASO # 0.1 10^3/uL (0.0-0.2); BASO % 1.7 % (0.0-1.0); EOS % 15.1 % (0.0-3.0); HEMATOCRIT 33.8 % (42.0-52.0); HEMOGLOBIN 11.5 g/dl (13.5-17.5); LYMPH # 1.5 10^3/uL (1.5-5.0); LYMPH % 23.9 % (24.0-44.0); MEAN CORPUSCULAR HEMOGLOBIN 34.5 pg (27.0-33.0); MEAN CORPUSCULAR VOLUME 101.5 fl (80.0-96.0); MONO # 0.6 10^3/uL (0.0-0.8); MONO % 8.6 % (2.0-8.0); NEUTROPHILS # 3.2 10^3/uL (1.5-8.5); NEUTROPHILS % 50.4 % (36.0-66.0); PLATELET COUNT, AUTOMATED 169 10^3/uL (150-450); RED BLOOD COUNT 3.33 10^6/uL (4.30-6.10); WHITE BLOOD COUNT 6.4 10^3/uL (4.0-10.0)
[2022-08-31 13:56] LABS: ERYTHROCYTE SEDIMENTATION RATE 8 mm/hr (0-20)
[2022-08-31 14:05] LABS: C REACTIVE PROTEIN QUANTITATIV < 0.40 MG/DL (<1.0)
[2022-08-31 14:07] LABS: BLOOD UREA NITROGEN 32 MG/DL (9-23); CALCIUM LEVEL 9.4 MG/DL (8.3-10.6); CARBON DIOXIDE LEVEL 24 MMOL/L (20-31); CHLORIDE LEVEL 109 MMOL/L (98-107); CREATININE FOR GFR 1.28 MG/DL (0.70-1.30); GLOMERULAR FILTRATION RATE 57.4 (>35); GLUCOSE, FASTING 146 MG/DL (74-106); POTASSIUM SERUM 4.4 MMOL/L (3.5-5.1); SODIUM LEVEL 141 MMOL/L (136-145)
== END ==
LOC: M PLALAB 10:17
PROVIDERS: ATTEND Family Medicine
DX: Z96.652 Presence of left artificial knee joint (principal)

== ENCOUNTER → 2022-11-15 | Outpatient (CLI) | payer MEDICARE, BC ==
[~2022-11-15] MED LIST changes: +MONT-5 PO; +SENN-186 PO; -SENN-80 PO; -SING10TA32 PO
== END ==
LOC: M WUC 10:30
PROVIDERS: ATTEND Urology
DX: N20.0 Calculus of kidney (principal)

== ENCOUNTER → 2023-01-31 | Outpatient (CLI) | payer MEDICARE ==
[2023-01-31 13:42] LABS: BASO # 0.1 10^3/uL (0.0-0.2); BASO % 0.8 % (0.0-1.0); EOS # 0.2 10^3/uL (0.0-0.5); HEMATOCRIT 38.2 % (42.0-52.0); HEMOGLOBIN 12.7 g/dl (13.5-17.5); LYMPH # 2.3 10^3/uL (1.5-5.0); MEAN CORPUSCULAR HEMOGLOBIN 32.2 pg (27.0-33.0); MEAN CORPUSCULAR HGB CONC 33.2 g/dl (32.0-36.5); MONO # 1.2 10^3/uL (0.0-0.8); MONO % 12.3 % (2.0-8.0); NEUTROPHILS # 5.9 10^3/uL (1.5-8.5); NEUTROPHILS % 60.4 % (36.0-66.0); PLATELET COUNT, AUTOMATED 204 10^3/uL (150-450); RED BLOOD COUNT 3.94 10^6/uL (4.30-6.10); WHITE BLOOD COUNT 9.7 10^3/uL (4.0-10.0)
[2023-01-31 14:03] LABS: ALBUMIN 3.2 G/DL (3.2-5.2); BILIRUBIN,TOTAL 0.9 MG/DL (0.3-1.2); CALCIUM LEVEL 9.3 MG/DL (8.3-10.6); CREATININE FOR GFR 1.37 MG/DL (0.70-1.30); TOTAL PROTEIN 6.1 G/DL (5.7-8.2)
[2023-02-02 18:08] LABS: FREE KAPPA LIGHT CHAINS SERUM 36.4 mg/L (3.3-19.4); FREE LAMBDA LIGHT CHAINS SERUM 20.3 mg/L (5.7-26.3); KAPPA/LAMBDA RATIO SERUM 1.79 (0.26-1.65)
== END ==
LOC: M PLALAB 10:12
PROVIDERS: ATTEND Specialist
DX: D64.9 Anemia, unspecified (principal)

== ENCOUNTER → 2023-02-08 | Outpatient (CLI) | payer MEDICARE ==
[2023-02-08 13:46] LABS: URIC ACID 5.3 MG/DL (3.7-9.2)
[2023-02-08 13:48] LABS: C REACTIVE PROTEIN QUANTITATIV 1.9 MG/DL (<1.0)
== END ==
LOC: M PLALAB 11:57
PROVIDERS: ATTEND Family Medicine
DX: M25.561 Pain in right knee (principal)

== ENCOUNTER → 2023-02-08 | Outpatient (CLI) | payer MEDICARE | LOC: M RAD 15:59 | PROVIDERS: ATTEND Family Medicine | DX: M25.561 Pain in right knee (principal); R60.0 Localized edema ==

== ENCOUNTER → 2023-02-16 | Outpatient (CLI) | payer MEDICARE ==
[~2023-02-16] MED LIST changes: +ELIQ5TAB
== END ==
LOC: M RAD 08:11
PROVIDERS: ATTEND Internal Medicine Gastroenterology
DX: K74.60 Unspecified cirrhosis of liver (principal)

== ENCOUNTER → 2023-02-22 | Outpatient (CLI) | payer MEDICARE | LOC: M RAD 14:04 | PROVIDERS: ATTEND Family Medicine | DX: I82.411 Acute embolism and thrombosis of right femoral vein (principal); I82.431 Acute embolism and thrombosis of right popliteal vein ==

== ENCOUNTER → 2023-03-09 | Outpatient (CLI) | payer MEDICARE ==
[~2023-03-09] MED LIST changes: -CEFA500C2; +CEFA500C2 PO
[2023-03-09 15:04] LABS: BASO # 0.1 10^3/uL (0.0-0.2); BASO % 1.9 % (0.0-1.0); EOS # 0.8 10^3/uL (0.0-0.5); HEMATOCRIT 39.7 % (42.0-52.0); HEMOGLOBIN 12.7 g/dl (13.5-17.5); LYMPH # 1.6 10^3/uL (1.5-5.0); LYMPH % 22.3 % (24.0-44.0); MEAN CORPUSCULAR VOLUME 96.8 fl (80.0-96.0); MONO # 0.9 10^3/uL (0.0-0.8); MONO % 12.7 % (2.0-8.0); NEUTROPHILS # 3.6 10^3/uL (1.5-8.5); NEUTROPHILS % 51.8 % (36.0-66.0); PLATELET COUNT, AUTOMATED 223 10^3/uL (150-450)
[2023-03-09 15:49] LABS: ERYTHROCYTE SEDIMENTATION RATE 11 mm/hr (0-20)
== END ==
LOC: M PLALAB 09:31
PROVIDERS: ATTEND Family Medicine
DX: Z96.652 Presence of left artificial knee joint (principal)

== ENCOUNTER → 2023-04-05 | Outpatient (CLI) | payer MEDICARE | LOC: M RAD 09:52 | PROVIDERS: ATTEND Family Medicine | DX: I82.431 Acute embolism and thrombosis of right popliteal vein (principal) ==

== ENCOUNTER 2023-07-02 20:04 | Observation (INO) | payer MEDICARE ==
[~2023-07-02] VITALS: Ht 177.8 cm; Wt 87.6 kg
[2023-07-02] MEDS ORDERED: methylPREDNISolone 125MG 2ML VIAL IV ONE (21:40)
[2023-07-02 22:04] LABS: VENOUS BASE EXCESS -4.1 (-2.0-2.0); VENOUS PARTIAL PRESSURE CO2 28.9 mmHg (38.0-50.0); VENOUS PARTIAL PRESSURE O2 138.1 mmHg (30.0-50.0); VENOUS PH 7.435 UNITS (7.330-7.430); VENOUS STANDARD HCO3 21.1 MMOL/L; VENOUS TOTAL CO2 19.9 MMOL/L (24.0-28.0)
[2023-07-02 22:10] LABS: BASO # 0.1 10^3/uL (0.0-0.2); BASO % 1.1 % (0.0-1.0); EOS # 0.1 10^3/uL (0.0-0.5); EOS % 1.7 % (0.0-3.0); HEMOGLOBIN 11.4 g/dl (13.5-17.5); LYMPH # 0.4 10^3/uL (1.5-5.0); LYMPH % 8.5 % (24.0-44.0); MEAN CORPUSCULAR HEMOGLOBIN 29.6 pg (27.0-33.0); MEAN CORPUSCULAR HGB CONC 33.5 g/dl (32.0-36.5); MEAN CORPUSCULAR VOLUME 88.3 fl (80.0-96.0); MONO # 1.3 10^3/uL (0.0-0.8); MONO % 27.3 % (2.0-8.0); NEUTROPHILS # 2.9 10^3/uL (1.5-8.5); PLATELET COUNT, AUTOMATED 155 10^3/uL (150-450); RED BLOOD COUNT 3.85 10^6/uL (4.30-6.10); WHITE BLOOD COUNT 4.7 10^3/uL (4.0-10.0)
[2023-07-02 22:33] LABS: CK-MB VALUE MASS < 1.0 NG/ML (<3.6)
[2023-07-02 22:34] LABS: CPK CREATINE PHOSPHOKINASE 364 U/L (46-171); MB/CK RELATIVE INDEX 0.27 (< OR =4)
[2023-07-02 22:35] LABS: ALBUMIN 2.9 G/DL (3.2-5.2); ALKALINE PHOSPHATASE 42 U/L (46-116); ALT/SGPT 27 U/L (7.0-40); AST/SGOT 35 U/L (<34); BILIRUBIN,DIRECT 0.5 MG/DL (<0.4); BILIRUBIN,TOTAL 1.1 MG/DL (0.3-1.2); BLOOD UREA NITROGEN 24 MG/DL (9-23); CALCIUM LEVEL 8.6 MG/DL (8.3-10.6); CARBON DIOXIDE LEVEL 22 MMOL/L (20-31); CHLORIDE LEVEL 110 MMOL/L (98-107); CREATININE FOR GFR 1.52 MG/DL (0.70-1.30); GLUCOSE, FASTING 99 MG/DL (74-106); POTASSIUM SERUM 3.6 MMOL/L (3.5-5.1); SODIUM LEVEL 141 MMOL/L (136-145); TOTAL PROTEIN 5.4 G/DL (5.7-8.2)
[2023-07-02] MEDS ORDERED: ISOVUE-370 76% 100ML VIAL As Ordered ONE (22:45)
[2023-07-02] MEDS: COMBIVENT RESPIMAT 100-20MCG INHALER 4GM INH SCH ×2 (23:01→23:02)
[2023-07-02] MEDS ORDERED: ACETAMINOPHEN TAB 650MG DOSE (2X325MG) PO PRN (23:55)
[2023-07-02] MEDS ORDERED: MOM 30ML SUSPENSION UDC PO PRN (23:55)
[2023-07-03] VITALS (12 sets, daily range): BP systolic 111–135; BP diastolic 57–71; TEMP 96.9–98.8; O2SAT 92–97
[2023-07-03] MEDS ORDERED: UNRESOLVED CLARIFICATION ENTRY XX STA (00:18)
[2023-07-03] MEDS ORDERED: ALBUTEROL SULFATE 2.5MG/0.5ML INH NEB SOLN NEB PRN (00:20)
[2023-07-03] MEDS ORDERED: MONT10TA97 PO (00:50)
[2023-07-03] MEDS ORDERED: THERTAB52 PO (00:50)
[2023-07-03] MEDS ORDERED: DHEA50CA4 PO (00:50)
[2023-07-03] MEDS ORDERED: FISH1CAP26 PO (00:50)
[2023-07-03] MEDS ORDERED: K2 P1TAB PO (00:50)
[2023-07-03] MEDS ORDERED: HOME MED LIST COMPLETE! XX SCH (00:55)
[2023-07-03] MEDS ORDERED: OSELTAMIVIR PHOSPHATE 75 MG CAP (TAMIFLU) PO ONE (01:00)
[2023-07-03] MEDS: IPRATROPIUM 0.5MG/ALBUTEROL 2.5MG INH SOL UD 3ML (DUONEB) NEB SCH ×4 (01:36→21:49)
[2023-07-03] MEDS: LR 1,000 ML IV SCH ×2 (03:30→05:31)
[2023-07-03 03:51] LABS: CK-MB VALUE MASS < 1.0 NG/ML (<3.6)
[2023-07-03 03:53] LABS: CPK CREATINE PHOSPHOKINASE 485 U/L (46-171)
[2023-07-03 07:16] LABS: HEMATOCRIT 38.5 % (42.0-52.0); HEMOGLOBIN 12.6 g/dl (13.5-17.5); MEAN CORPUSCULAR HEMOGLOBIN 29.1 pg (27.0-33.0); MEAN CORPUSCULAR HGB CONC 32.7 g/dl (32.0-36.5); MEAN CORPUSCULAR VOLUME 88.9 fl (80.0-96.0); PLATELET COUNT, AUTOMATED 155 10^3/uL (150-450); RED BLOOD COUNT 4.33 10^6/uL (4.30-6.10); WHITE BLOOD COUNT 2.5 10^3/uL (4.0-10.0)
[2023-07-03 07:50] LABS: PROCALCITONIN 0.04 ng/ml
[2023-07-03 08:27] LABS: BASO % 0.4 % (0.0-1.0); LYMPH # 0.4 10^3/uL (1.5-5.0); LYMPH % 14.5 % (24.0-44.0); MONO # 0.1 10^3/uL (0.0-0.8); MONO % 4.7 % (2.0-8.0); NEUTROPHILS # 2.1 10^3/uL (1.5-8.5)
[2023-07-03 08:42] LABS: BLOOD UREA NITROGEN 24 MG/DL (9-23); CALCIUM LEVEL 9.1 MG/DL (8.3-10.6); CARBON DIOXIDE LEVEL 23 MMOL/L (20-31); CHLORIDE LEVEL 110 MMOL/L (98-107); CREATININE FOR GFR 1.42 MG/DL (0.70-1.30); GLOMERULAR FILTRATION RATE 50.8 (>35); GLUCOSE, FASTING 139 MG/DL (74-106); POTASSIUM SERUM 3.8 MMOL/L (3.5-5.1); SODIUM LEVEL 142 MMOL/L (136-145)
[2023-07-03 09:07] LABS: PLATELET ESTIMATE NORMAL (NORMAL)
[2023-07-03] MEDS: APIXABAN 2.5 MG TAB (ELIQUIS) PO SCH ×2 (09:51→21:37)
[2023-07-03] MEDS: predniSONE 20 MG TAB PO SCH (09:51)
[2023-07-03] MEDS: TAMSULOSIN 0.4 MG CAP PO SCH (12:39)
[2023-07-03] MEDS: MULTIVITAMINS/MINERALS THERAP 1 TAB PO SCH (12:39)
[2023-07-03] MEDS: ASPIRIN 81MG CHEW TABLET PO SCH (12:39)
[2023-07-03] MEDS: OMEPRAZOLE 20MG CAP PO SCH (12:39)
[2023-07-03] MEDS: THYROID 30MG TAB PO SCH (12:40)
[2023-07-03] MEDS: OSELTAMIVIR PHOSPHATE 30MG CAPSULE PO SCH ×2 (12:40→21:37)
[2023-07-03] MEDS: VITAMIN D 1,000 INTERNATIONAL UNITS TABLET PO SCH (12:40)
[2023-07-03] MEDS: MONTELUKAST 10 MG TAB PO SCH (12:40)
[2023-07-03] MEDS: OMEGA-3 1000MG CAPSULE PO SCH (12:40)
[2023-07-03 13:21] LABS: HEPATITIS C VIRUS ABY INDEX 0.07 INDEX (<0.8)
[2023-07-03 13:22] LABS: HEPATITIS B CORE ANTIBODY IGM NEGATIVE (NEGATIVE)
[2023-07-03] MEDS: CEPHALEXIN SUSP POWDER 250MG/5ML BTL 100ML PO SCH ×2 (14:23→21:38)
[2023-07-03] MEDS ORDERED: MAGNESIUM GLUCONATE 500 MG TAB PO SCH (21:00)
[2023-07-03] MEDS ORDERED: LATANOPROST 0.005% OPHTH SOLN 2.5 ML OU SCH (21:00)
[2023-07-04] MEDS: IPRATROPIUM 0.5MG/ALBUTEROL 2.5MG INH SOL UD 3ML (DUONEB) NEB SCH ×3 (02:00→13:16)
[2023-07-04 03:04] VITALS: BP 121/65; TEMP 99; O2SAT 96
[2023-07-04] MEDS: CEPHALEXIN SUSP POWDER 250MG/5ML BTL 100ML PO SCH ×2 (05:44→15:29)
[2023-07-04 06:28] VITALS: BP 111/64; TEMP 98.8; O2SAT 98
[2023-07-04 06:36] LABS: HEMATOCRIT 34.1 % (42.0-52.0); HEMOGLOBIN 11.4 g/dl (13.5-17.5); MEAN CORPUSCULAR HEMOGLOBIN 29.5 pg (27.0-33.0); MEAN CORPUSCULAR HGB CONC 33.4 g/dl (32.0-36.5); MEAN CORPUSCULAR VOLUME 88.1 fl (80.0-96.0); PLATELET COUNT, AUTOMATED 158 10^3/uL (150-450); RED BLOOD COUNT 3.87 10^6/uL (4.30-6.10); WHITE BLOOD COUNT 12.7 10^3/uL (4.0-10.0)
[2023-07-04 07:03] LABS: CALCIUM LEVEL 8.6 MG/DL (8.3-10.6); CREATININE FOR GFR 1.63 MG/DL (0.70-1.30); GLOMERULAR FILTRATION RATE 43.3 (>35)
[2023-07-04] MEDS ORDERED: NS 1,000 ML IV SCH (07:30)
[2023-07-04 10:00] VITALS: BP 127/68; TEMP 98.7; O2SAT 96
[2023-07-04] MEDS: OMEGA-3 1000MG CAPSULE PO SCH (10:42)
[2023-07-04] MEDS: THYROID 30MG TAB PO SCH (10:42)
[2023-07-04] MEDS: APIXABAN 2.5 MG TAB (ELIQUIS) PO SCH (10:42)
[2023-07-04] MEDS: OMEPRAZOLE 20MG CAP PO SCH (10:42)
[2023-07-04] MEDS: VITAMIN D 1,000 INTERNATIONAL UNITS TABLET PO SCH (10:42)
[2023-07-04] MEDS: ASPIRIN 81MG CHEW TABLET PO SCH (10:43)
[2023-07-04] MEDS: predniSONE 20 MG TAB PO SCH (10:43)
[2023-07-04] MEDS: MONTELUKAST 10 MG TAB PO SCH (10:43)
[2023-07-04] MEDS: TAMSULOSIN 0.4 MG CAP PO SCH (10:43)
[2023-07-04] MEDS: MULTIVITAMINS/MINERALS THERAP 1 TAB PO SCH (10:43)
[2023-07-04] MEDS: OSELTAMIVIR PHOSPHATE 30MG CAPSULE PO SCH (10:43)
[2023-07-04] MEDS ORDERED: SODIUM CHLORIDE 0.9% 1000ML IV ONE (11:50)
[2023-07-04 14:00] VITALS: BP 134/71; TEMP 98.6; O2SAT 92
[2023-07-04 15:45] LABS: CALCIUM LEVEL 9.3 MG/DL (8.3-10.6); CREATININE FOR GFR 1.5 MG/DL (0.70-1.30); GLOMERULAR FILTRATION RATE 47.7 (>35); POTASSIUM SERUM 4.3 MMOL/L (3.5-5.1)
[2023-07-04] MEDS ORDERED: OSEL30CA PO (16:18)
[2023-07-04] MEDS ORDERED: PRED10TA2 PO (16:18)
== END 2023-07-04 17:55 | disposition home or self-care (01) ==
LOC: EDBD 20:04 → M ED 20:04 → M ED INP 23:53 → ENRESERV 07-03 04:24 → M MS4PR 07-03 05:02 → M MSPAV 07-03 15:54
PROVIDERS: ADMIT Internal Medicine; ATTEND Student in an Organized Health Care Education/Training Program
DX: J09.X2 Influenza due to identified novel influenza A virus with other respiratory manifestations (principal); J96.01 Acute respiratory failure with hypoxia; J45.901 Unspecified asthma with (acute) exacerbation; N20.1 Calculus of ureter; N13.39 Other hydronephrosis; N17.9 Acute kidney failure, unspecified; N18.30 Chronic kidney disease, stage 3 unspecified; N52.9 Male erectile dysfunction, unspecified; E29.1 Testicular hypofunction; K74.60 Unspecified cirrhosis of liver; D47.2 Monoclonal gammopathy; E03.9 Hypothyroidism, unspecified; N40.0 Benign prostatic hyperplasia without lower urinary tract symptoms; K21.9 Gastro-esophageal reflux disease without esophagitis; G47.30 Sleep apnea, unspecified; A69.20 Lyme disease, unspecified; Z86.718 Personal history of other venous thrombosis and embolism; Z96.652 Presence of left artificial knee joint; T84.54XS Infection and inflammatory reaction due to internal left knee prosthesis, sequela; Y79.2 Prosthetic and other implants, materials and accessory orthopedic devices associated with adverse incidents; Z80.3 Family history of malignant neoplasm of breast; Z83.2 Family history of diseases of the blood and blood-forming organs and certain disorders involving the immune mechanism; Z88.0 Allergy status to penicillin; Z79.899 Other long term (current) drug therapy; Z79.01 Long term (current) use of anticoagulants; Z79.82 Long term (current) use of aspirin; Z79.890 Hormone replacement therapy; Z79.2 Long term (current) use of antibiotics
CPT/HCPCS: 36415; 71045; 71275; 74176; 80048; 80076; 81001; 82550; 82553; 82803; 83605; 83880; 84145; 84484; 85025; 85027; 86705; 86709; 86803; 87040; 87340; 87486; 87581; 87633; 87798; 93005; 93041; 94640; 94760; 96374; 97116; 97161; 97165; 99285; G0378; J2930; J7512; Q9967

== ENCOUNTER → 2023-07-14 | Outpatient (CLI) | payer MEDICARE ==
[~2023-07-14] MED LIST changes: +DHEA50CA4 PO; +FISH1CAP26 PO; +OSEL30CA PO; +PRED10TA2 PO; +THERTAB52 PO
== END ==
LOC: M PLALAB 12:06
PROVIDERS: ATTEND Urology
DX: N20.0 Calculus of kidney (principal)

== ENCOUNTER → 2023-07-27 | Outpatient (CLI) | payer MEDICARE | LOC: M RAD 15:09 | PROVIDERS: ATTEND Urology | DX: N20.0 Calculus of kidney (principal) ==

== ENCOUNTER 2023-08-04 11:14 | Day surgery (SDC) | payer MEDICARE ==
[~2023-08-04] VITALS: Ht 177.8 cm; Wt 80.6 kg
[~2023-08-04 11:14] MED LIST changes: +ceFAZolin SOD 2 GM in IV 1 EA IV ONE
[2023-08-04] MEDS ORDERED: LR 1,000 ML IV SCH (11:40)
[2023-08-04] MEDS ORDERED: propofoL 200 MG/20 ML VIAL As Ordered ONE (11:46)
[2023-08-04] MEDS ORDERED: LIDOCAINE 2% 100MG/5ML SDV (FOR ANES.) As Ordered ONE (11:46)
[2023-08-04] MEDS ORDERED: fentaNYL 100 MCG/2 ML INJECTION As Ordered ONE (11:46)
[2023-08-04] MEDS ORDERED: ISOVUE-M 300 61% 15ML VIAL As Ordered ONE (13:14)
[2023-08-04] MEDS ORDERED: ROCURONIUM BROMIDE 50MG/5ML VIAL As Ordered ONE (13:46)
[2023-08-04] MEDS ORDERED: SUGAMMADEX SODIUM 500 MG/5 ML VIAL (BRIDION) As Ordered ONE (13:46)
[2023-08-04] MEDS ORDERED: MORPHINE 2 MG/ML 1ML VIAL IV PRN (14:25)
[2023-08-04] MEDS ORDERED: oxyCODONE 5MG TAB PO PRN (14:25)
[2023-08-04] MEDS ORDERED: ONDANSETRON 4MG 2ML VIAL IV PRN (14:25)
[2023-08-04] MEDS ORDERED: fentaNYL 100 MCG/2 ML INJECTION IV PRN (14:25)
[2023-08-04] MEDS ORDERED: CIPR-250 PO (14:36)
[2023-08-04] MEDS ORDERED: PERCOCET 5MG/325MG TAB PO PRN (14:55)
[2023-08-04 15:29] VITALS: BP 131/75; TEMP 98.2; O2SAT 97
[2023-08-12 15:09] LABS: CA Hydro Phos 100 % (.); Size 5x8 mm (.)
== END 2023-08-04 15:42 | disposition home or self-care (01) ==
LOC: M SDC 11:14
PROVIDERS: ATTEND Urology
DX: N20.1 Calculus of ureter (principal); G47.30 Sleep apnea, unspecified; K21.9 Gastro-esophageal reflux disease without esophagitis; J44.9 Chronic obstructive pulmonary disease, unspecified; J45.909 Unspecified asthma, uncomplicated; K76.0 Fatty (change of) liver, not elsewhere classified; N40.0 Benign prostatic hyperplasia without lower urinary tract symptoms; Z87.891 Personal history of nicotine dependence; Z88.0 Allergy status to penicillin; Z79.899 Other long term (current) drug therapy; Z79.890 Hormone replacement therapy; Z79.82 Long term (current) use of aspirin; Z79.01 Long term (current) use of anticoagulants
CPT/HCPCS: 52356; 74420; 82365; C1769; C1894; C2617; J3010; Q9967

== ENCOUNTER → 2023-08-09 | Outpatient (REF) | payer MEDICARE ==
[~2023-08-09] MED LIST changes: +CIPR-250 PO; -ceFAZolin SOD 2 GM in IV 1 EA IV ONE
[2023-08-09 18:35] LABS: APPEARANCE, URINE TURBID (CLEAR); BACTERIA, URINE AUTO 1+ (NEGATIVE); BILIRUBIN, URINE AUTO NEGATIVE (NEGATIVE); BLOOD, URINE BLOOD 3+ (NEGATIVE); COLOR, URINE AMBER (YELLOW); GLUCOSE, URINE (UA) AUTO NEGATIVE (NEGATIVE); KETONE, URINE AUTO NEGATIVE (NEGATIVE); LEUKOCYTE ESTERASE, URINE AUTO 3+ (NEGATIVE); NITRITE, URINE AUTO NEGATIVE (NEGATIVE); PROTEIN, URINE AUTO 2+ mg/dL (NEGATIVE); RBC, URINE AUTO 10 /HPF (0-3); SPECIFIC GRAVITY URINE AUTO 1.014 (1.002-1.035); SQUAMOUS EPITHELIAL CELL UR AU 0 /HPF (0-6); UROBILINOGEN, URINE AUTO 0.2 mg/dL (0.0-2.0); WBC, URINE AUTO TNTC /HPF (0-3)
== END ==
LOC: M SMT 17:10
PROVIDERS: ATTEND Urology
DX: N39.0 Urinary tract infection, site not specified (principal)

== ENCOUNTER → 2023-08-29 | Outpatient (REF) | payer MEDICARE, BC ==
[2023-08-29 13:25] LABS: APPEARANCE, URINE TURBID (CLEAR); BACTERIA, URINE AUTO 2+ (NEGATIVE); BILIRUBIN, URINE AUTO NEGATIVE (NEGATIVE); BLOOD, URINE BLOOD 1+ (NEGATIVE); COLOR, URINE AMBER (YELLOW); GLUCOSE, URINE (UA) AUTO NEGATIVE (NEGATIVE); KETONE, URINE AUTO NEGATIVE (NEGATIVE); LEUKOCYTE ESTERASE, URINE AUTO 3+ (NEGATIVE); NITRITE, URINE AUTO NEGATIVE (NEGATIVE); PROTEIN, URINE AUTO 2+ mg/dL (NEGATIVE); RBC, URINE AUTO 40 /HPF (0-3); SPECIFIC GRAVITY URINE AUTO 1.009 (1.002-1.035); SQUAMOUS EPITHELIAL CELL UR AU 0 /HPF (0-6); UROBILINOGEN, URINE AUTO 0.2 mg/dL (0.0-2.0); WBC, URINE AUTO TNTC /HPF (0-3)
== END ==
LOC: M SMT 13:03
PROVIDERS: ATTEND Urology
DX: N39.0 Urinary tract infection, site not specified (principal)

== ENCOUNTER → 2024-01-11 | Outpatient (REF) | payer MEDICARE, BC ==
[~2024-01-11] MED LIST changes: +RIFA300C62; -RIFA300C8
[2024-01-11 17:55] LABS: APPEARANCE, URINE TURBID (CLEAR); BACTERIA, URINE AUTO 1+ (NEGATIVE); BILIRUBIN, URINE AUTO NEGATIVE (NEGATIVE); BLOOD, URINE BLOOD 2+ (NEGATIVE); COLOR, URINE YELLOW (YELLOW); GLUCOSE, URINE (UA) AUTO NEGATIVE (NEGATIVE); KETONE, URINE AUTO NEGATIVE (NEGATIVE); LEUKOCYTE ESTERASE, URINE AUTO 3+ (NEGATIVE); NITRITE, URINE AUTO NEGATIVE (NEGATIVE); PROTEIN, URINE AUTO 2+ mg/dL (NEGATIVE); RBC, URINE AUTO 74 /HPF (0-3); SPECIFIC GRAVITY URINE AUTO 1.014 (1.002-1.035); SQUAMOUS EPITHELIAL CELL UR AU 0 /HPF (0-6); UROBILINOGEN, URINE AUTO 0.2 mg/dL (0.0-2.0); WBC, URINE AUTO TNTC /HPF (0-3)
== END ==
LOC: M LAB REF 17:16
PROVIDERS: ATTEND Family Medicine
DX: R30.0 Dysuria (principal)

== ENCOUNTER → 2024-01-22 | Outpatient (CLI) | payer MEDICARE | LOC: M PLAIMG 11:43 | PROVIDERS: ATTEND Urology | DX: N20.0 Calculus of kidney (principal) ==

== ENCOUNTER → 2024-01-24 | Outpatient (REF) | payer MEDICARE | LOC: M LAB REF 17:02 | PROVIDERS: ATTEND Family Medicine | DX: N39.0 Urinary tract infection, site not specified (principal) ==

== ENCOUNTER → 2024-02-06 | Outpatient (REF) | payer MEDICARE ==
[2024-02-06 17:30] LABS: APPEARANCE, URINE TURBID (CLEAR); BACTERIA, URINE AUTO NEGATIVE (NEGATIVE); BILIRUBIN, URINE AUTO NEGATIVE (NEGATIVE); BLOOD, URINE BLOOD NEGATIVE (NEGATIVE); COLOR, URINE AMBER (YELLOW); GLUCOSE, URINE (UA) AUTO NEGATIVE (NEGATIVE); KETONE, URINE AUTO NEGATIVE (NEGATIVE); LEUKOCYTE ESTERASE, URINE AUTO 3+ (NEGATIVE); NITRITE, URINE AUTO NEGATIVE (NEGATIVE); PROTEIN, URINE AUTO 2+ mg/dL (NEGATIVE); RBC, URINE AUTO 65 /HPF (0-3); SPECIFIC GRAVITY URINE AUTO 1.014 (1.002-1.035); SQUAMOUS EPITHELIAL CELL UR AU 0 /HPF (0-6); TRANSITIONAL EPITHELIAL AUTO 7 /HPF; UROBILINOGEN, URINE AUTO 0.2 mg/dL (0.0-2.0); WBC, URINE AUTO TNTC /HPF (0-3)
== END ==
LOC: M LAB REF 16:52
PROVIDERS: ATTEND Urology
DX: N39.0 Urinary tract infection, site not specified (principal)

== ENCOUNTER → 2024-02-26 | Outpatient (CLI) | payer MEDICARE | LOC: M RAD 15:57 | PROVIDERS: ATTEND Urology | DX: N39.0 Urinary tract infection, site not specified (principal); N20.0 Calculus of kidney; K80.80 Other cholelithiasis without obstruction; K57.30 Diverticulosis of large intestine without perforation or abscess without bleeding; N40.0 Benign prostatic hyperplasia without lower urinary tract symptoms ==

== ENCOUNTER → 2024-04-10 | Outpatient (CLI) | payer MEDICARE | LOC: M RAD 09:35 | PROVIDERS: ATTEND Nurse Practitioner Adult Health | DX: Z86.718 Personal history of other venous thrombosis and embolism (principal) ==

== ENCOUNTER → 2024-07-08 | Outpatient (REF) | payer MEDICARE ==
[~2024-07-08] MED LIST changes: -CYCL5TAB PO; +CYCL5TAB4 PO
[2024-07-08 18:37] LABS: APPEARANCE, URINE TURBID (CLEAR); BACTERIA, URINE AUTO 1+ (NEGATIVE); BILIRUBIN, URINE AUTO NEGATIVE (NEGATIVE); BLOOD, URINE BLOOD 2+ (NEGATIVE); COLOR, URINE AMBER (YELLOW); GLUCOSE, URINE (UA) AUTO NEGATIVE (NEGATIVE); KETONE, URINE AUTO NEGATIVE (NEGATIVE); LEUKOCYTE ESTERASE, URINE AUTO 2+ (NEGATIVE); NITRITE, URINE AUTO NEGATIVE (NEGATIVE); PROTEIN, URINE AUTO 2+ mg/dL (NEGATIVE); RBC, URINE AUTO 44 /HPF (0-3); SPECIFIC GRAVITY URINE AUTO 1.013 (1.002-1.035); SQUAMOUS EPITHELIAL CELL UR AU 0 /HPF (0-6); UROBILINOGEN, URINE AUTO 0.2 mg/dL (0.0-2.0); WBC, URINE AUTO TNTC /HPF (0-3)
== END ==
LOC: M SMT 17:14
PROVIDERS: ATTEND Urology
DX: N39.0 Urinary tract infection, site not specified (principal)

== ENCOUNTER → 2024-12-03 | Outpatient (CLI) | payer MEDICARE | LOC: M PLAIMG 09:23 | PROVIDERS: ATTEND Urology | DX: N20.0 Calculus of kidney (principal) ==

== ENCOUNTER 2025-02-15 13:16 | Emergency (ER) | payer MEDICARE ==
[~2025-02-15] VITALS: Ht 172.7 cm; Wt 83.6 kg
[~2025-02-15 13:16] MED LIST changes: +ALBU8.5H INH; +CEPH500C PO; +DHEA1CAP PO; +FURO20TA2 PO; +NETA2.5D2 OU; +NITR100C2 PO; +POTA10CA70 PO; +XARE15TA PO
[2025-02-15 13:48] LABS: BASO # 0.1 10^3/uL (0.0-0.2); BASO % 1.0 % (0.0-1.0); EOS # 0.2 10^3/uL (0.0-0.5); EOS % 2.7 % (0.0-3.0); LYMPH # 1.1 10^3/uL (1.5-5.0); LYMPH % 12.4 % (24.0-44.0); MONO # 0.7 10^3/uL (0.0-0.8); MONO % 8.2 % (2.0-8.0); NEUTROPHILS # 6.6 10^3/uL (1.5-8.5); NEUTROPHILS % 75.5 % (36.0-66.0); PLATELET COUNT, AUTOMATED 186 10^3/uL (150-450)
[2025-02-15 15:30] VITALS: BP 101/60; O2SAT 97
[2025-02-15 15:45] VITALS: TEMP 96.6
== END 2025-02-15 15:45 | disposition home or self-care (01) ==
LOC: EDBD 13:16 → M ED 13:16
DX: R31.9 Hematuria, unspecified (principal); T83.021A Displacement of indwelling urethral catheter, initial encounter; N40.0 Benign prostatic hyperplasia without lower urinary tract symptoms; K21.9 Gastro-esophageal reflux disease without esophagitis; G47.33 Obstructive sleep apnea (adult) (pediatric); N18.30 Chronic kidney disease, stage 3 unspecified; Z88.1 Allergy status to other antibiotic agents; Z79.51 Long term (current) use of inhaled steroids; Z79.2 Long term (current) use of antibiotics; Z79.01 Long term (current) use of anticoagulants; Z79.899 Other long term (current) drug therapy; Z79.810 Long term (current) use of selective estrogen receptor modulators (SERMs)

== ENCOUNTER → 2025-02-17 | Outpatient (REF) | payer MEDICARE ==
[2025-02-17 13:30] LABS: APPEARANCE, URINE HAZY (CLEAR); BACTERIA, URINE AUTO 1+ (NEGATIVE); BILIRUBIN, URINE AUTO NEGATIVE (NEGATIVE); BLOOD, URINE BLOOD 1+ (NEGATIVE); GLUCOSE, URINE (UA) AUTO NEGATIVE (NEGATIVE); KETONE, URINE AUTO NEGATIVE (NEGATIVE); LEUKOCYTE ESTERASE, URINE AUTO 3+ (NEGATIVE); MUCUS, URINE SMALL (NEGATIVE); NITRITE, URINE AUTO NEGATIVE (NEGATIVE); PROTEIN, URINE AUTO NEGATIVE (NEGATIVE); RBC, URINE AUTO 10 /HPF (0-3); SPECIFIC GRAVITY URINE AUTO 1.006 (1.002-1.035); SQUAMOUS EPITHELIAL CELL UR AU 0 /HPF (0-6); UROBILINOGEN, URINE AUTO 0.2 mg/dL (0.0-2.0); WBC, URINE AUTO 134 /HPF (0-3)
== END ==
LOC: M SMT 12:40
PROVIDERS: ATTEND Urology
DX: N39.0 Urinary tract infection, site not specified (principal)

== ENCOUNTER → 2025-03-20 | Outpatient (REF) | payer MEDICARE ==
[~2025-03-20] MED LIST changes: +CETI10CA13 PO; +ELIQ5TAB PO; +FERR324T21 PO
== END ==
LOC: M LAB REF 16:43
PROVIDERS: ATTEND Family Medicine
DX: R50.9 Fever, unspecified (principal)

== ENCOUNTER → 2025-03-21 | Outpatient (REF) | payer MEDICARE | LOC: M LAB REF 11:31 | PROVIDERS: ATTEND Family Medicine | DX: R50.9 Fever, unspecified (principal) ==

== ENCOUNTER 2025-03-23 17:10 | Inpatient (IN) | payer MEDICARE ==
[~2025-03-23] VITALS: Ht 177.8 cm; Wt 82.0 kg
[~2025-03-23 17:10] MED LIST changes: -CETI10CA13 PO; -ELIQ5TAB PO; -FERR324T21 PO
[2025-03-23] MEDS ORDERED: NS (Normal Saline) 0.9% 2,390 ML in IV 1 EA IV ONE (17:25)
[2025-03-23] MEDS: LIDOCAINE 2% 5 ML JELLY UROJET TOP ONE (17:25)
[2025-03-23] MEDS: NS 0.9% IV ONE (17:33)
[2025-03-23] MEDS: [UNRECOGNIZED DRUG - OTHER] IV ONE (17:33)
[2025-03-23] MEDS: cefTRIAXone SOD 2 GM in DEXTROSE 5% (D5W) ADV/MINI-BAG 50 ML IV ONE (17:38)
[2025-03-23] MEDS: ACETAMINOPHEN 325 MG/10.15 ML UDC PO ONE (17:38)
[2025-03-23 17:39] LABS: BASO # 0.0 10^3/uL (0.0-0.2); BASO % 0.4 % (0.0-1.0); EOS # 0.1 10^3/uL (0.0-0.5); EOS % 0.8 % (0.0-3.0); LYMPH # 0.4 10^3/uL (1.5-5.0); LYMPH % 3.4 % (24.0-44.0); MONO # 0.2 10^3/uL (0.0-0.8); MONO % 1.8 % (2.0-8.0); NEUTROPHILS # 10.5 10^3/uL (1.5-8.5); NEUTROPHILS % 93.0 % (36.0-66.0); PLATELET COUNT, AUTOMATED 191 10^3/uL (150-450)
[2025-03-23 17:49] LABS: AMORPHOUS SEDIMENT SMALL (NEGATIVE); APPEARANCE, URINE HAZY (CLEAR); BACTERIA, URINE AUTO 1+ (NEGATIVE); BILIRUBIN, URINE AUTO NEGATIVE (NEGATIVE); BLOOD, URINE BLOOD NEGATIVE (NEGATIVE); GLUCOSE, URINE (UA) AUTO NEGATIVE (NEGATIVE); KETONE, URINE AUTO NEGATIVE (NEGATIVE); LEUKOCYTE ESTERASE, URINE AUTO 3+ (NEGATIVE); NITRITE, URINE AUTO NEGATIVE (NEGATIVE); PROTEIN, URINE AUTO NEGATIVE (NEGATIVE); RBC, URINE AUTO 4 /HPF (0-3); SPECIFIC GRAVITY URINE AUTO 1.012 (1.002-1.035); SQUAMOUS EPITHELIAL CELL UR AU 0 /HPF (0-6); UROBILINOGEN, URINE AUTO 2.0 mg/dL (0.0-2.0); WBC, URINE AUTO 120 /HPF (0-3)
[2025-03-23 17:55] LABS: INR 1.34
[2025-03-23 18:14] LABS: ALT/SGPT 26 U/L (7.0-40); AST/SGOT 29 U/L (<34); C REACTIVE PROTEIN QUANTITATIV 4.04 MG/DL (<1.0); CALCIUM LEVEL 9.3 MG/DL (8.3-10.6); CARBON DIOXIDE LEVEL 22 MMOL/L (20-31); CHLORIDE LEVEL 108 MMOL/L (98-107); CK-MB VALUE MASS < 1.0 NG/ML (<3.6); CPK CREATINE PHOSPHOKINASE 17 U/L (46-171); CREATININE FOR GFR 1.73 MG/DL (0.70-1.30); GLOMERULAR FILTRATION RATE 38.4 (>35); MAGNESIUM LEVEL 1.6 MG/DL (1.8-2.4); POTASSIUM SERUM 4.2 MMOL/L (3.5-5.1); SODIUM LEVEL 142 MMOL/L (136-145)
[2025-03-23 18:17] LABS: ABG BASE EXCESS -1.4 (-2.0-2.0); ABG HCO3 20.7 MMOL/L (22.0-26.0); ABG O2 SATURATION 97.4 % (95.0-99.0); ABG PARTIAL PRESSURE CO2 26.5 mmHg (35.0-45.0); ABG PARTIAL PRESSURE O2 89.2 mmHg (75.0-100.0); ABG STANDARD HCO3 23.3 MMOL/L. (22.0-26.0); ABG TOTAL CO2 21.5 MMOL/L (23.0-31.0); ABG pH (ARTERIAL) 7.510 UNITS (7.350-7.450)
[2025-03-23 19:10] LABS: CK-MB VALUE MASS < 1.0 NG/ML (<3.6)
[2025-03-23 19:12] LABS: CPK CREATINE PHOSPHOKINASE 21 U/L (46-171)
[2025-03-23] MEDS: MEROPENEM 1 GM in IV 1 EA IV SCH (20:22)
[2025-03-23] MEDS: LR 1,000 ML IV SCH (20:26)
[2025-03-23] MEDS ORDERED: IPRATROPIUM 0.5 MG/ALBUTEROL 2.5 MG INH SOL UD 3 ML NEB PRN (20:30)
[2025-03-23] MEDS ORDERED: RIVAROXABAN 15MG TAB PO SCH (20:30)
[2025-03-23] MEDS ORDERED: FERR324T21 PO (22:09)
[2025-03-23] MEDS ORDERED: CETI10CA13 PO (22:09)
[2025-03-23] MEDS ORDERED: ELIQ5TAB PO (22:09)
[2025-03-23] MEDS ORDERED: HOME MED LIST COMPLETE! XX SCH (22:10)
[2025-03-23 22:30] VITALS: BP 92/60; TEMP 98.9; O2SAT 94
[2025-03-23] MEDS: APIXABAN 5 MG TAB PO SCH (23:12)
[2025-03-24] VITALS (12 sets, daily range): BP systolic 88–130; BP diastolic 42–69; TEMP 97.3–101.1; O2SAT 95–97
[2025-03-24] MEDS: THYROID 30MG TAB PO SCH (05:34)
[2025-03-24 07:03] LABS: PLATELET COUNT, AUTOMATED 165 10^3/uL (150-450)
[2025-03-24 07:31] LABS: ALT/SGPT 25.0 U/L (7.0-40); AST/SGOT 27.0 U/L (<34); CALCIUM LEVEL 8.9 MG/DL (8.3-10.6); CARBON DIOXIDE LEVEL 24.0 MMOL/L (20-31); CHLORIDE LEVEL 111.0 MMOL/L (98-107); CREATININE FOR GFR 1.57 MG/DL (0.70-1.30); GLOMERULAR FILTRATION RATE 43.2 (>35); MAGNESIUM LEVEL 1.8 MG/DL (1.8-2.4); POTASSIUM SERUM 4.2 MMOL/L (3.5-5.1); SODIUM LEVEL 145.0 MMOL/L (136-145)
[2025-03-24] MEDS: OMEPRAZOLE 20MG CAP PO SCH (09:10)
[2025-03-24] MEDS: TAMSULOSIN 0.4 MG CAP PO SCH (09:11)
[2025-03-24] MEDS: NS 500 ML IV ONE (12:33)
[2025-03-24] MEDS: ACETAMINOPHEN 325 MG TAB PO PRN (21:22)
[2025-03-24] MEDS: LR 1,000 ML IV SCH (22:47)
[2025-03-25 03:54] VITALS: BP 118/69; TEMP 98; O2SAT 100
[2025-03-25 06:31] LABS: PLATELET COUNT, AUTOMATED 172 10^3/uL (150-450)
[2025-03-25 06:55] LABS: ALT/SGPT 25.0 U/L (7.0-40); AST/SGOT 24.0 U/L (<34); CALCIUM LEVEL 8.9 MG/DL (8.3-10.6); CARBON DIOXIDE LEVEL 26.0 MMOL/L (20-31); CHLORIDE LEVEL 110.0 MMOL/L (98-107); CREATININE FOR GFR 1.55 MG/DL (0.70-1.30); GLOMERULAR FILTRATION RATE 43.9 (>35); MAGNESIUM LEVEL 1.7 MG/DL (1.8-2.4); POTASSIUM SERUM 4.6 MMOL/L (3.5-5.1); SODIUM LEVEL 144.0 MMOL/L (136-145)
[2025-03-25 08:00] VITALS: BP_SYST 113; BP_SYST 127; BP_DIAS 63; BP_DIAS 66; TEMP 98.4; O2SAT 93; O2SAT 95
[2025-03-25] MEDS: MAG SULF 1GM/100ML (MAG RUN) 1 GM in IV 1 EA IV ONE (09:47)
[2025-03-25 12:00] VITALS: BP_SYST 111; BP_SYST 123; BP_DIAS 62; BP_DIAS 69; TEMP 97.3; TEMP 98.7; O2SAT 94
[2025-03-25 16:00] VITALS: BP_SYST 115; BP_SYST 122; BP_DIAS 59; BP_DIAS 69; TEMP 97.2; TEMP 99.3; O2SAT 93; O2SAT 94
[2025-03-25 19:52] VITALS: BP 130/69; O2SAT 95
[2025-03-25 20:46] VITALS: TEMP 98.6
[2025-03-25] MEDS: METHENAMINE HIPPURATE 1 GM TABLET PO SCH (21:15)
[2025-03-25] MEDS: SODIUM CHLORIDE 0.9% INJ 10 ML SYR IV SCH (22:30)
[2025-03-25] MEDS ORDERED: SODIUM CHLORIDE 0.9% INJ 10 ML SYR IV PRN (23:45)
[2025-03-25] MEDS ORDERED: HEPARIN LOCK FLUSH 100 UNITS/ML 3 ML SYRINGE IV SCH (23:45)
[2025-03-25] MEDS ORDERED: HEPARIN LOCK FLUSH 100 UNITS/ML 3 ML SYRINGE IV PRN (23:45)
[2025-03-26 00:09] VITALS: BP 103/58; TEMP 98; O2SAT 92
[2025-03-26 03:45] VITALS: BP 127/63; TEMP 98.3; O2SAT 94
[2025-03-26 06:54] LABS: PLATELET COUNT, AUTOMATED 207 10^3/uL (150-450)
[2025-03-26 07:28] LABS: ALT/SGPT 23.0 U/L (7.0-40); AST/SGOT 21.0 U/L (<34); CALCIUM LEVEL 9.2 MG/DL (8.3-10.6); CARBON DIOXIDE LEVEL 26.0 MMOL/L (20-31); CHLORIDE LEVEL 108.0 MMOL/L (98-107); CREATININE FOR GFR 1.61 MG/DL (0.70-1.30); GLOMERULAR FILTRATION RATE 41.9 (>35); MAGNESIUM LEVEL 1.8 MG/DL (1.8-2.4); POTASSIUM SERUM 4.2 MMOL/L (3.5-5.1); SODIUM LEVEL 142.0 MMOL/L (136-145)
[2025-03-26 08:00] VITALS: BP 125/63; TEMP 98.4; O2SAT 94
[2025-03-26] MEDS: ERTAPENEM SODIUM 1 GM in NS MINI-BAG PLUS 50 ML IV SCH (08:30)
== END 2025-03-26 12:22 | disposition home health service (06) | DRG 698 ==
LOC: M ED 17:10 → EDBD 17:10 → M ED INP 20:03 → M MSPAV 22:35
PROVIDERS: ADMIT Student in an Organized Health Care Education/Training Program; ATTEND Internal Medicine
DX: T83.518A Infection and inflammatory reaction due to other urinary catheter, initial encounter (principal); A41.59 Other Gram-negative sepsis; N39.0 Urinary tract infection, site not specified; K76.6 Portal hypertension; N40.1 Benign prostatic hyperplasia with lower urinary tract symptoms; R33.9 Retention of urine, unspecified; N31.2 Flaccid neuropathic bladder, not elsewhere classified; K21.9 Gastro-esophageal reflux disease without esophagitis; K44.9 Diaphragmatic hernia without obstruction or gangrene; G47.33 Obstructive sleep apnea (adult) (pediatric); D47.2 Monoclonal gammopathy; E03.9 Hypothyroidism, unspecified; K74.60 Unspecified cirrhosis of liver; N18.30 Chronic kidney disease, stage 3 unspecified; H91.93 Unspecified hearing loss, bilateral; K59.00 Constipation, unspecified; B96.1 Klebsiella pneumoniae [K. pneumoniae] as the cause of diseases classified elsewhere; K57.30 Diverticulosis of large intestine without perforation or abscess without bleeding; H40.9 Unspecified glaucoma; J45.909 Unspecified asthma, uncomplicated; E83.42 Hypomagnesemia; M79.89 Other specified soft tissue disorders; Z86.718 Personal history of other venous thrombosis and embolism; Z87.442 Personal history of urinary calculi; Z79.01 Long term (current) use of anticoagulants; Z79.899 Other long term (current) drug therapy; Z79.890 Hormone replacement therapy; Z88.0 Allergy status to penicillin; Z88.8 Allergy status to other drugs, medicaments and biological substances; Z87.891 Personal history of nicotine dependence

== ENCOUNTER → 2025-04-01 | Outpatient (REF) | payer MEDICARE ==
[~2025-04-01] MED LIST changes: +CETI10CA13 PO; +ELIQ5TAB PO; +FERR324T21 PO
[2025-04-01 15:32] LABS: PLATELET COUNT, AUTOMATED 250 10^3/uL (150-450)
[2025-04-01 15:38] LABS: ERYTHROCYTE SEDIMENTATION RATE 27 mm/hr (0-20)
[2025-04-01 15:58] LABS: CALCIUM LEVEL 10.2 MG/DL (8.3-10.6); CARBON DIOXIDE LEVEL 28.0 MMOL/L (20-31); CHLORIDE LEVEL 106.0 MMOL/L (98-107); CREATININE FOR GFR 1.64 MG/DL (0.70-1.30); GLOMERULAR FILTRATION RATE 41.0 (>35); POTASSIUM SERUM 5.1 MMOL/L (3.5-5.1); SODIUM LEVEL 142.0 MMOL/L (136-145)
== END ==
LOC: M SHH 14:38
PROVIDERS: ATTEND Internal Medicine Infectious Disease
DX: Z00.00 Encounter for general adult medical examination without abnormal findings (principal); D50.9 Iron deficiency anemia, unspecified

== ENCOUNTER → 2025-04-17 | Outpatient (REF) | payer MEDICARE ==
[2025-04-18 18:18] LABS: IRON (FE) 20 UG/DL (65-175); PERCENT SATURATION 5.8 % (19.7-50.0)
[2025-04-18 18:21] LABS: VITAMIN B12 LEVEL 1402 PG/ML (211-911)
[2025-04-21 17:18] LABS: PROTEIN, TOTAL SO 6.1 g/dL (6.1-8.1)
== END ==
LOC: M LAB REF 17:01
PROVIDERS: ATTEND Internal Medicine Nephrology
DX: N18.31 Chronic kidney disease, stage 3a (principal); D63.1 Anemia in chronic kidney disease

== ENCOUNTER 2025-05-07 13:15 | Outpatient (CLI) | payer MEDICARE ==
[~2025-05-07] VITALS: Ht 177.8 cm; Wt 82.0 kg
[~2025-05-07 13:15] MED LIST changes: +ALBUTEROL SULFATE 2.5 MG/0.5 ML INH CONCENTRATE NEB SOLN INH PRN; +EPINEPHrine INJ 1 MG/ML 1ML AMP IM PRN; +diphenhydrAMINE 50 MG/ML VIAL IV PRN
[2025-05-07 13:30] VITALS: BP 128/63; O2SAT 98
[2025-05-07] MEDS: IRON SUCROSE 300 MG in NS 250 ML IV ONE (13:41)
[2025-05-07 15:42] VITALS: BP 133/67; O2SAT 98
== END 2025-05-07 15:30 ==
LOC: M INFU 13:15
PROVIDERS: ATTEND Internal Medicine Nephrology
DX: N18.9 Chronic kidney disease, unspecified (principal); D63.1 Anemia in chronic kidney disease; Z88.1 Allergy status to other antibiotic agents
CPT/HCPCS: 96365; 96366; J1756

== ENCOUNTER 2025-05-14 10:55 | Emergency (ER) | payer MEDICARE ==
[~2025-05-14] VITALS: Ht 175.3 cm; Wt 81.1 kg
[~2025-05-14 10:55] MED LIST changes: -ALBUTEROL SULFATE 2.5 MG/0.5 ML INH CONCENTRATE NEB SOLN INH PRN; -EPINEPHrine INJ 1 MG/ML 1ML AMP IM PRN; -diphenhydrAMINE 50 MG/ML VIAL IV PRN
[2025-05-14 11:00] VITALS: BP 128/64
[2025-05-14 11:29] LABS: BASO # 0.0 10^3/uL (0.0-0.2); BASO % 0.1 % (0.0-1.0); EOS # 0.2 10^3/uL (0.0-0.5); EOS % 1.0 % (0.0-3.0); LYMPH # 1.8 10^3/uL (1.5-5.0); LYMPH % 11.0 % (24.0-44.0); MONO # 1.2 10^3/uL (0.0-0.8); MONO % 7.0 % (2.0-8.0); NEUTROPHILS # 13.4 10^3/uL (1.5-8.5); NEUTROPHILS % 80.2 % (36.0-66.0); PLATELET COUNT, AUTOMATED 232 10^3/uL (150-450)
[2025-05-14 11:51] LABS: CK-MB VALUE MASS 2.6 NG/ML (<3.6)
[2025-05-14 11:52] LABS: INR 1.31
[2025-05-14 11:54] LABS: ALT/SGPT 32.0 U/L (7.0-40); AST/SGOT 26.0 U/L (<34); CALCIUM LEVEL 10.2 MG/DL (8.3-10.6); CARBON DIOXIDE LEVEL 28.0 MMOL/L (20-31); CHLORIDE LEVEL 106.0 MMOL/L (98-107); CREATININE FOR GFR 1.51 MG/DL (0.70-1.30); GLOMERULAR FILTRATION RATE 45.3 (>35); POTASSIUM SERUM 4.3 MMOL/L (3.5-5.1); SODIUM LEVEL 144.0 MMOL/L (136-145)
[2025-05-14 11:55] LABS: FREE T4 0.91 NG/DL (0.89-1.76)
[2025-05-14 12:04] LABS: CPK CREATINE PHOSPHOKINASE 56.0 U/L (46-171); MB/CK RELATIVE INDEX 4.64 (< OR =4)
[2025-05-14] MEDS ORDERED: PRED20TA PO (12:33)
[2025-05-14] MEDS ORDERED: METH-1100 PO (12:34)
[2025-05-14] MEDS ORDERED: TEST200I14 INJ (12:34)
[2025-05-14] MEDS ORDERED: HOME MED LIST COMPLETE! XX SCH (12:35)
[2025-05-14] MEDS: ASPIRIN 81 MG CHEWABLE TABLET PO ONE (12:52)
[2025-05-14 12:55] LABS: CK-MB VALUE MASS 2.5 NG/ML (<3.6)
[2025-05-14] MEDS ORDERED: ISOVUE-370 76% 100 ML VIAL As Ordered ONE (12:55)
[2025-05-14 13:02] LABS: CPK CREATINE PHOSPHOKINASE 49.0 U/L (46-171); MB/CK RELATIVE INDEX 5.1 (< OR =4)
[2025-05-14 14:38] VITALS: TEMP 98; O2SAT 98
== END 2025-05-14 14:40 | disposition home or self-care (01) ==
LOC: M ED 10:55
DX: R07.9 Chest pain, unspecified (principal); K21.9 Gastro-esophageal reflux disease without esophagitis; N18.30 Chronic kidney disease, stage 3 unspecified; G47.33 Obstructive sleep apnea (adult) (pediatric); N40.0 Benign prostatic hyperplasia without lower urinary tract symptoms; Z88.1 Allergy status to other antibiotic agents; Z79.51 Long term (current) use of inhaled steroids; Z79.01 Long term (current) use of anticoagulants; Z79.52 Long term (current) use of systemic steroids; Z79.899 Other long term (current) drug therapy; Z79.810 Long term (current) use of selective estrogen receptor modulators (SERMs)
CPT/HCPCS: 36415; 71045; 71275; 80048; 80076; 82550; 82553; 83690; 84439; 84443; 84484; 85025; 85610; 93005; 93041; 94760; 99284; Q9967

== ENCOUNTER 2025-05-21 13:13 | Outpatient (CLI) | payer MEDICARE ==
[~2025-05-21] VITALS: Ht 177.8 cm; Wt 81.8 kg
[~2025-05-21 13:13] MED LIST changes: +ALBUTEROL SULFATE 2.5 MG/0.5 ML INH CONCENTRATE NEB SOLN INH PRN; +EPINEPHrine INJ 1 MG/ML 1ML AMP IM PRN; +METH-1100 PO; +PRED20TA PO; +TEST200I14 INJ; +diphenhydrAMINE 50 MG/ML VIAL IV PRN
[2025-05-21 13:30] VITALS: BP 125/58; O2SAT 99
[2025-05-21] MEDS: IRON SUCROSE 300 MG in NS 250 ML IV ONE (13:31)
[2025-05-21 15:08] VITALS: BP 125/64; O2SAT 96
== END 2025-05-21 15:15 ==
LOC: M INFU 13:13
PROVIDERS: ATTEND Internal Medicine Nephrology
DX: D64.9 Anemia, unspecified (principal); N18.9 Chronic kidney disease, unspecified; Z88.1 Allergy status to other antibiotic agents
CPT/HCPCS: 96365; 96366; J1756

== ENCOUNTER 2025-05-28 14:02 | Outpatient (CLI) | payer MEDICARE ==
[~2025-05-28] VITALS: Ht 177.8 cm; Wt 80.5 kg
[~2025-05-28 14:02] MED LIST changes: +IRON SUCROSE 300 MG in NS 250 ML IV ONE; +NS (Normal Saline) 0.9% 1,000 ML IV SCH
[2025-05-28 14:10] VITALS: BP 141/79; O2SAT 98
[2025-05-28] MEDS: IRON SUCROSE 300 MG in NS 250 ML IV ONE (14:38)
== END 2025-05-28 16:15 ==
LOC: M INFU 14:02
PROVIDERS: ATTEND Internal Medicine Nephrology
DX: D64.9 Anemia, unspecified (principal); N18.9 Chronic kidney disease, unspecified; Z88.1 Allergy status to other antibiotic agents
CPT/HCPCS: 96365; J1756